=== PATIENT | male | born 1945 | race Caucasian/White ===

== ENCOUNTER → 2017-11-24 09:42 | Outpatient (REF) | payer MEDICARE, SELFPAY ==
[2017-11-24 09:51] LABS: Basophils % 0.4 % (0.1-2.0); Eosinophils # 0.1 K/mm3 (0.0-0.4); Eosinophils % 0.8 % (0.1-12.0); Hematocrit 49.3 % (42.0-52.0); Hemoglobin 16.1 g/dL (14.1-18.0); Lymphocytes # 2.1 K/mm3 (0.7-4.5); Lymphocytes % 18.2 K/mm3 (10-50); Mean Corpuscular HGB Conc 32.6 g/dL (31.8-35.4); Mean Corpuscular Hemoglobin 30.5 pg (27.0-31.2); Mean Corpuscular Volume 93.4 fl (80-94); Mean Platelet Volume 8.2 fl (7.4-10.4); Monocytes # 0.8 K/mm3 (0.1-1.0); Monocytes % 7.2 % (1.7-9.3); Neutrophils # 8.3 K/mm3 (1.8-7.8); Neutrophils % 73.4 % (37.0-80.0); Platelet Count 232 K/mm3 (142-424); Red Blood Count 5.28 M/mm3 (4.60-6.20); Red Cell Distribution Width 13.5 % (11.5-17.5); White Blood Count 11.2 K/mm3 (4.8-10.8)
[2017-11-24 10:05] LABS: Anion Gap 7.4 mEq/L (5-15); Blood Urea Nitrogen 15 mg/dL (7-18); Carbon Dioxide 33 mmol/L (21.0-32.0); Chloride 104 mmol/L (98-107); Creatinine,Serum 0.97 mg/dL (0.70-1.30); Estimated Glomerular Filt Rate 76 ml/min (>60); GFR (African American) 92 ML/MIN (>60); Glucose 161 mg/dL (74-106); Potassium 4.4 mmoL/L (3.5-5.1); Sodium 140 mmol/L (136-145)
[2017-11-24 10:17] LABS: Acetone, Serum (Rapid) None Detected (None Detect)
== END ==
LOC: LAB 09:42
PROVIDERS: Visit Provider Internal Medicine
DX: R10.9 Unspecified abdominal pain (principal); E87.2 Acidosis; E11.42 Type 2 diabetes mellitus with diabetic polyneuropathy; I10 Essential (primary) hypertension; E66.01 Morbid (severe) obesity due to excess calories
CPT/HCPCS: 80048; 82009; 85025

== ENCOUNTER 2019-05-05 18:36 | Observation (INO) ==
[2019-05-05 19:12] LABS: Basophils % 0.3 % (0.1-2.0); Eosinophils % 0.3 % (0.1-12.0); Hematocrit 49.9 % (42.0-52.0); Hemoglobin 16.1 g/dL (14.1-18.0); Lymphocytes % 16.4 % (10-50); Mean Corpuscular HGB Conc 32.2 g/dL (31.8-35.4); Mean Corpuscular Volume 92.9 fl (80-94); Mean Platelet Volume 7.5 fl (7.4-10.4); Monocytes % 8.3 % (1.7-9.3); Neutrophils # 8.9 K/mm3 (1.8-7.8); Neutrophils % 74.6 % (37.0-80.0); Platelet Count 229 K/mm3 (142-424); Red Blood Count 5.37 M/mm3 (4.60-6.20); Red Cell Distribution Width 13.9 % (11.5-17.5); White Blood Count 11.9 K/mm3 (4.8-10.8)
--- NOTE | 2019-05-05 19:38 | Emergency Department Note ---
ED Disposition Clinical Impression: Left lower quadrant abdominal pain Disposition: Still a Patient Condition on Discharge: Fair Instructions: DI for Acute Abdomen Referrals: Preet Morales [Primary Care Provider] - - Critical Care Critical Care Time: No Attestation: On 05/05/19, the high probability of a clinically significant, sudden or life threatening deterioration of the following system(s) required my full and direct attention, intervention and personal management. The time I documented below is in addition to time spent performing reported procedures but includes the following listed in this critical care notation. Medical Decision Making - Liban Inquiry Pt receiving controlled substance: Yes Liban was queried for this patient: No Reason not queried -: Emergent pt cond-no time Risks and benefits of using a controlled substance: were not discussed with pt by me Vital Signs: 05/05/19 18:42 05/05/19 19:06 Temperature 98.3 F Temperature Source Oral Pulse Rate [Left Radial] 57 L 88 Respiratory Rate 16 19 Blood Pressure [Right Arm] 112/69 118/86 Blood Pressure Mean [Right Arm] 83 96 Blood Pressure Source [Right Arm] Automatic Cuff Automatic Cuff Blood Pressure Position [Right Arm] Sitting Sitting 02 Sat by Pulse Oximetry 98 96 Oxygen Delivery Method Room Air Room Air - Lab Data Lab Results 05/05/19 18:10: Troponin I < 0.02, Lipase 90 05/05/19 18:50: WBC 11.9 H, RBC 5.37, Hgb 16.1, Hct 49.9, MCV 92.9, MCH 29.9, MCHC 32.2, RDW 13.9, Plt Count 229, MPV 7.5, Neut % (Auto) 74.6, Lymph % (Auto) 16.4, [place] % (Auto) 8.3, Eos % (Auto) 0.3, Baso % (Auto) 0.3, Neut # (Auto) 8.9 H, Lymph # (Auto) 2.0, [place] # (Auto) 1.0, Eos # (Auto) 0.0, Baso # (Auto) 0.0 05/05/19 18:50: Sodium 142, Potassium 4.1, Chloride 105, Carbon Dioxide 28, Anion Gap 13.1, BUN 22 H, Creatinine 1.06, Estimated Creat Clear 109, Estimated GFR 69, Est GFR ( Amer) 83, Glucose 120 H, Calcium 9.9, Total Bilirubin 0 .6, AST 12 L, ALT 20, Alkaline Phosphatase 72, Total Protein 7.7, Albumin 3.8, Globulin 3.9 H, Albumin/Globulin Ratio 1.0 L Result diagrams: 05/05/19 18:50 05/05/19 18:50 Orders (Tests/Meds): ED MEDICATIONS Discontinued Medications Generic Name Dose Route Start Last Admin Trade Name Ezra PRN Reason Stop Dose Admin Iohexol 75 ml 05/05/19 19:59 05/05/19 20:01 Rad-Omnipaque 350 100ml Bottle IV 05/05/19 20:00 75 ml ONCE ONE Administration Morphine Sulfate 4 mg 05/05/19 19:59 Morphine 4mg/Ml Syringe IV 05/05/19 20:00 ONCE ONE Ondansetron HCl 4 mg 05/05/19 19:59 Zofran 4mg/2ml Vial IV 05/05/19 20:00 ONCE ONE Sodium Chloride 10 ml 05/05/19 19:59 05/05/19 20:01 Rad-Saline Flush 10ml Syringe IV 05/05/19 20:00 10 ml ONCE ONE Administration ORDERS Category Date Time Status CT abdomen pelvis w con Stat Cat Scan 05/05/19 18:48 Taken Diarrhea 23 Panel, PCR Stat Lab 05/05/19 18:47 Ordered Urinalysis and Microscopic Stat Lab 05/05/19 18:47 Ordered - ECG Data Tracing #1 EKG interpreted by Wilber Khan MD: Rhythm: sinus Rate: 76 [place]: normal Ectopy: none Conduction: normal ST Segment Changes: none T Wave Changes: none Q Waves: none No evidence of acute ischemia or injury Baseline wander present, but I consider the EKG adequate for accurate interpretation. Medical Decision Narrative: 8:00 PM: At shift change, I have discussed the patient with Dr. Yusuf, who will assume care of the patient at this time. I have discussed all clinical information including history, physical and diagnostic study results. Preliminary diagnoses based on information available at this point have been recorded by me. Controlled substance administration and critical care statement are also preliminary, as of the time of handoff. General Adult HPI - General Chief complaint: Abdominal Pain Stated complaint: abdominal pain Time Seen by Provider: 05/05/19 19:37 Mode of Arrival: Ambulatory Limitations: No Limitations Description of Symptoms (Recalled from ER Triage Doc. by RN): to ed per pvt car with c/o llq abd pain woke him up at 3am. states he had approx 5-6 episodes of diarrhea but has not had any since 12pm today. states he went and played golf but pain is progressively getting worse. denies fever, vomiting. cpta none - History of Present Illness HPI narrative: States left lower quadrant pain since about 330 or 4 AM today. 4 or 5 episodes of diarrhea without blood. No vomiting. No fever. Has prior history of diverticulitis. Feels similar to previous episodes. Has never had to have surgery for diverticulitis. - Related Data Home Medications Medication Instructions Recorded Confirmed Canagliflozin [Invokana] 300 mg PO DAILY 02/21/18 02/21/18 Gabapentin [Gabapentin 300mg Cap] 300 mg PO BID 02/21/18 02/21/18 Glimepiride 4 mg PO DAILY 02/21/18 02/21/18 Lisinopril/Hydrochlorothiazide 1 tab PO DAILY 02/21/18 02/21/18 [Lisinopril-Hctz 20-12.5 mg Tab] Metformin HCl 500 mg PO BID 02/21/18 02/21/18 Metoprolol Tartrate 50 mg PO BID 02/21/18 02/21/18 Pravastatin Sodium [Pravachol 40mg 40 mg PO HS 02/21/18 02/21/18 Tablet] Previous Rx's Medication Instructions Recorded levoFLOXacin [Levaquin 500mg 500 mg PO DAILY #7 tab 02/21/18 tab] metroNIDAZOLE [Flagyl] 500 mg PO TID #30 tab 02/21/18 Allergies Allergy/AdvReac Type Severity Reaction Status Date / Time No Known Allergies Allergy Verified 11/09/18 14:08 [facility] History - Hepatitis A Screen Drug use history?: No High risk sexual behaviors?: No History of sexually transmitted infection?: No Currently employed?: No Childcare worker?: No Do you have indoor plumbing?: Yes Do you have electricity?: Yes Attestation statement:: This patient has been screened for Hepatitis A risk factors. I have reviewed the patient's past medical history: Yes Medical History: Reports:: Diabetes Mellitus Type 1 Denies:: Cancer, Diabetes Mellitus Type 2, MRSA Amputation: No Fractures: No - Social History Smoking Status: Current every day smoker Tobacco Type: cigars # Packs/Day (cigarettes): 0 Alcohol Intake: never Alcohol Intake Frequency:: holidays/special occasions only Occupational Status: retired ROS Obtained: Yes All systems reviewed & no additional complaints - Constitutional Constitutional: Denies fever(s) - Cardiovascular Cardiovascular: Denies chest pain - Respiratory Respiratory: No dyspnea - Gastrointestinal Gastrointestingal: Reports: abdominal pain, diarrhea. Denies: nausea, vomiting - Genitourinary Male Genitourinary: Denies difficulty urinating Physical Exam - General General appearance: alert, in no apparent distress - Head Head exam: atraumatic, normocephalic - Eye Eye exam: Present: normal appearance, EOMI - ENT ENT exam: Present: mucous membranes moist - Neck Neck exam: Present: normal inspection, trachea midline - Chest Chest inspection: Present: normal inspection, symmetric chest wall rise - Respiratory Respiratory exam: Present: normal lung sounds bilaterally. Absent: respiratory distress - Cardiovascular Cardiovascular exam: Present: regular rate, normal rhythm, normal heart sounds - Abdominal Exam Abdominal exam: Present: soft, tenderness, guarding, normal bowel sounds. Absent: distention, rebound, rigidity Abdominal tenderness: Present: LLQ - Extremities Exam Extremities exam: Present: normal inspection - Neurological Exam Neurological exam: Present: alert, oriented X3 - Psychiatric Psychiatric exam: Present: normal affect, normal mood - Skin Skin exam: Present: warm, dry
[2019-05-05 19:39] LABS: Albumin Level 3.8 gm/dL (3.4-5.0); Anion Gap 13.1 mEq/L (5-15); Bilirubin,Total 0.6 mg/dL (0.2-1.0); Calcium 9.9 mg/dL (8.5-10.1); Globulin 3.9 gm/dl (1.3-3.2); Total Protein,Serum 7.7 gm/dL (6.4-8.2)
[2019-05-05 20:29] LABS: Microscopic, Urine URINE MICROSCOPIC (MICROSCOPIC)
[2019-05-05 20:30] LABS: Appearance,Urine CLEAR (Clear); Bilirubin,Urine Negative (Negative); Blood, Urine Negative (Negative); Color,Urine YELLOW (Yellow); Glucose,Urine (UA) 3+ (Negative); Ketones,Urine Negative (Negative); Leukocyte Esterase,Urine Negative (Negative); PH,Urine 5.5 (5.0-8.5); Protein,Urine Negative (Negative); Urobilinogen,Urine 0.2 EU/dl (0.2)
[2019-05-05 20:32] LABS: Amorphous Sediment,Urine Trace /lpf
[2019-05-06 07:06] LABS: Anion Gap 10.1 mEq/L (5-15)
[2019-05-06 07:16] LABS: Hemoglobin 14.9 g/dL (14.1-18.0); Red Blood Count 4.89 M/mm3 (4.60-6.20); White Blood Count 9.4 K/mm3 (4.8-10.8)
[2019-05-06 07:17] LABS: Basophils % 0.4 % (0.1-2.0); Eosinophils # 0.1 K/mm3 (0.0-0.4); Eosinophils % 0.6 % (0.1-12.0); Hematocrit 46.2 % (42.0-52.0); Lymphocytes # 1.9 K/mm3 (0.7-4.5); Lymphocytes % 22.7 % (10-50); Mean Corpuscular HGB Conc 32.2 g/dL (31.8-35.4); Mean Corpuscular Volume 94.4 fl (80-94); Mean Platelet Volume 7.5 fl (7.4-10.4); Monocytes # 1.1 K/mm3 (0.1-1.0); Monocytes % 11.5 % (1.7-9.3); Neutrophils # 6.1 K/mm3 (1.8-7.8); Neutrophils % 64.8 % (37.0-80.0); Platelet Count 193 K/mm3 (142-424)
[2019-05-06 07:22] LABS: Calcium 8.9 mg/dL (8.5-10.1)
--- NOTE | 2019-05-06 08:22 | H&P/Discharge Summary ---
General - General Admission date:: 05/05/19 Discharge date: 05/06/19 *Admission Date: 05/05/19 *Chief complaint: Diverticulitis *History of present illness: 73-year-old white male, patient of Dr. Morales, who has a history of frequent diverticulitis exacerbations, who noticed that he was somewhat constipated yesterday morning with some abdominal pain. He took a vigorous walk, ate some breakfast and then went to play golf, and noticed that he had some frequent bowel movements but no pain. Last night he had some worsening pain and came to the emergency department where he was noted to have diverticulitis on CT scan. He was unable to keep fluids down in the ER and was admitted overnight. Please see ER notes for details. [facility] History I have reviewed the patient's past medical history: Yes Medical History: Reports:: Diabetes Mellitus Type 2, Hypertension Denies:: Cancer, Diabetes Mellitus Type 1, MRSA *Have you ever received a pneumonia vaccine?: No *Have you received a flu vaccine this season?: No Laterality Cases: Left: Other, Right: Arthroscopy Knee Other Surgeries: Yes: Appendectomy, Colonoscopy Amputation: No Fractures: No - *Social History Educational Level: Completed High School Smoking Status: Current some day smoker Tobacco Type: cigars # Packs/Day (cigarettes): 0 Alcohol Intake: current Alcohol Intake Frequency:: a few times a week *Occupational Status:: retired Housing: house Household Members: none *Travel in the last 8 weeks: None - Psychiatric History Expresses thoughts of harming self/others: None Suicide Plan Description: No Plan Family Hx:: Adopted Review of Systems - Review of Systems Review of systems:: pertinent systems reviewed and negative unless documented below This morning patient has no abdominal pain. 10 point review of systems is entirely negative. Exam Vital signs and Labs for Last 24 Hours: Temp Pulse Resp BP Pulse Ox 97.8 F 61 18 108/57 L 95 05/06/19 04:00 05/06/19 04:00 05/06/19 04:00 05/06/19 04:00 05/06/19 04:00 Laboratory Results - last 24 hr 05/05/19 18:10: Troponin I < 0.02, Lipase 90 05/05/19 18:50: WBC 11.9 H, RBC 5.37, Hgb 16.1, Hct 49.9, MCV 92.9, MCH 29.9, MCHC 32.2, RDW 13.9, Plt Count 229, MPV 7.5, Neut % (Auto) 74.6, Lymph % (Auto) 16.4, [place] % (Auto) 8.3, Eos % (Auto) 0.3, Baso % (Auto) 0.3, Neut # (Auto) 8.9 H, Lymph # (Auto) 2.0, [place] # (Auto) 1.0, Eos # (Auto) 0.0, Baso # (Auto) 0.0 05/05/19 18:50: Sodium 142, Potassium 4.1, Chloride 105, Carbon Dioxide 28, Anion Gap 13.1, BUN 22 H, Creatinine 1.06, Estimated Creat Clear 109, Estimated GFR 69, Est GFR ( Amer) 83, Glucose 120 H, Calcium 9.9, Total Bilirubin 0.6, AST 12 L, ALT 20, Alkaline Phosphatase 72, Total Protein 7.7, Albumin 3.8, Globulin 3.9 H, Albumin/Globulin Ratio 1.0 L 05/05/19 20:25: Urine Color Yellow, Urine Appearance Clear, Urine pH 5.5, Ur Specific [place] 1.010, Urine Protein Negative, Urine Glucose (UA) 3+, Urine Ketones Negative, Urine Blood Negative, Urine Nitrate Negative, Urine Bilirubin Negative, Urine Urobilinogen 0.2, Ur Leukocyte Esterase Negative, Amorphous Sediment Trace 05/06/19 05:55: WBC 9.4, RBC 4.89, Hgb 14.9, Hct 46.2, MCV 94.4 H, MCH 30.4, MCHC 32.2, RDW 14.0, Plt Count 193, MPV 7.5, Neut % (Auto) 64.8, Lymph % (Auto) 22.7, [place] % (Auto) 11.5 H, Eos % (Auto) 0.6, Baso % (Auto) 0.4, Neut # (Auto) 6.1, Lymph # (Auto) 1.9, [place] # (Auto) 1.1 H, Eos # (Auto) 0.1, Baso # (Auto) 0.0 05/06/19 05:55: Sodium 142, Potassium 4.1, Chloride 106, Carbon Dioxide 30, Anion Gap 10.1, BUN 19 H, Creatinine 0.88, Estimated Creat Clear 115, Estimated GFR 85, Est GFR ( Amer) 103 D, Glucose 99, Calcium 8.9 D 05/06/19 06:27: POC Glucose 101 I & O for Last 24 hours: Intake & Output 05/03/19 05/04/19 05/05/19 05/06/19 11:59 11:59 11:59 11:59 Intake Total 814 / 814 Output Total 900 / 900 Balance -86 / -86 Weight 269 lb 8 oz Narrative: Alert, oriented. Able to get up and move around the room. No complaints of pain. No scleral icterus, no jaundice. Lungs are clear bilaterally. Heart rate regular. Abdomen soft, nontender, no protuberance. No distal edema, clubbing. No perfusion deficits. No neurologic deficit. Hospital Course Hospital Course: Patient was admitted overnight with IV antibiotics. Tolerated this well. This morning we will give him a low residue breakfast. If this is tolerated well he will be discharged home with p.o. antibiotics, I will make appointments for GI follow-up to review his colonoscopy history as well as with Dr. Morales, his primary physician. Results Labs on day of discharge: Labs from last 24 hours 05/06/19 05/06/19 05/06/19 06:27 05:55 05:55 WBC 9.4 RBC 4.89 Hgb 14.9 Hct 46.2 MCV 94.4 H MCH 30.4 MCHC 32.2 RDW 14.0 Plt Count 193 MPV 7.5 Neut % (Auto) 64.8 Lymph % (Auto) 22.7 [place] % (Auto) 11.5 H Eos % (Auto) 0.6 Baso % (Auto) 0.4 Neut # (Auto) 6.1 Lymph # (Auto) 1.9 [place] # (Auto) 1.1 H Eos # (Auto) 0.1 Baso # (Auto) 0.0 Sodium 142 Potassium 4.1 Chloride 106 Carbon Dioxide 30 Anion Gap 10.1 BUN 19 H Creatinine 0.88 Estimated Creat Clear 115 Estimated GFR 85 Est GFR ( Amer) 103 D Glucose 99 POC Glucose 101 Calcium 8.9 D Total Bilirubin AST ALT Alkaline Phosphatase Troponin I Total Protein Albumin Globulin Albumin/Globulin Ratio Lipase Urine Color Urine Appearance Urine pH Ur Specific [place] Urine Protein Urine Glucose (UA) Urine Ketones Urine Blood Urine Nitrate Urine Bilirubin Urine Urobilinogen Ur Leukocyte Esterase Amorphous Sediment 05/05/19 05/05/19 05/05/19 20:25 18:50 18:50 WBC 11.9 H RBC 5.37 Hgb 16.1 Hct 49.9 MCV 92.9 MCH 29.9 MCHC 32.2 RDW 13.9 Plt Count 229 MPV 7.5 Neut % (Auto) 74.6 Lymph % (Auto) 16.4 [place] % (Auto) 8.3 Eos % (Auto) 0.3 Baso % (Auto) 0.3 Neut # (Auto) 8.9 H Lymph # (Auto) 2.0 [place] # (Auto) 1.0 Eos # (Auto) 0.0 Baso # (Auto) 0.0 Sodium 142 Potassium 4.1 Chloride 105 Carbon Dioxide 28 Anion Gap 13.1 BUN 22 H Creatinine 1.06 Estimated Creat Clear 109 Estimated GFR 69 Est GFR ( Amer) 83 Glucose 120 H POC Glucose Calcium 9.9 Total Bilirubin 0.6 AST 12 L ALT 20 Alkaline Phosphatase 72 Troponin I Total Protein 7.7 Albumin 3.8 Globulin 3.9 H Albumin/Globulin Ratio 1.0 L Lipase Urine Color Yellow Urine Appearance Clear Urine pH 5.5 Ur Specific [place] 1.010 Urine Protein Negative Urine Glucose (UA) 3+ Urine Ketones Negative Urine Blood Negative Urine Nitrate Negative Urine Bilirubin Negative Urine Urobilinogen 0.2 Ur Leukocyte Esterase Negative Amorphous Sediment Trace 05/05/19 18:10 WBC RBC Hgb Hct MCV MCH MCHC RDW Plt Count MPV Neut % (Auto) Lymph % (Auto) [place] % (Auto) Eos % (Auto) Baso % (Auto) Neut # (Auto) Lymph # (Auto) [place] # (Auto) Eos # (Auto) Baso # (Auto) Sodium Potassium Chloride Carbon Dioxide Anion Gap BUN Creatinine Estimated Creat Clear Estimated GFR Est GFR ( Amer) Glucose POC Glucose Calcium Total Bilirubin AST ALT Alkaline Phosphatase Troponin I < 0.02 Total Protein Albumin Globulin Albumin/Globulin Ratio Lipase 90 Urine Color Urine Appearance Urine pH Ur Specific [place] Urine Protein Urine Glucose (UA) Urine Ketones Urine Blood Urine Nitrate Urine Bilirubin Urine Urobilinogen Ur Leukocyte Esterase Amorphous Sediment DS: Diagnosis - Discharge Diagnosis (1) Diverticulitis Status: Acute Discharge Plan - Patient Discharge Instructions ACTIVITY: Continue current activity DIET: continue same diet Patient Instructions: Diverticulitis, DI for Diverticulitis - Follow up Plan Follow up with: Yessy Mireles APRN [Nurse Practitioner] - 1 week Preet Morales [Primary Care Provider] - 05/10/19 Disposition: Home, Self-Intermediate Medications: Home Medications Medication Instructions Recorded Confirmed Type Canagliflozin [Invokana] 300 mg PO DAILY 02/21/18 02/21/18 History Gabapentin [Gabapentin 300mg Cap] 300 mg PO BID 02/21/18 02/21/18 History Glimepiride 4 mg PO DAILY 02/21/18 02/21/18 History Lisinopril/Hydrochlorothiazide 1 tab PO DAILY 02/21/18 02/21/18 History [Lisinopril-Hctz 20-12.5 mg Tab] Metoprolol Tartrate 50 mg PO BID 02/21/18 02/21/18 History Pravastatin Sodium [Pravachol 40mg 40 mg PO HS 02/21/18 02/21/18 History Tablet] levoFLOXacin [Levaquin 500mg 500 mg PO DAILY #7 tab 02/21/18 Rx tab] metroNIDAZOLE [Flagyl] 500 mg PO TID #30 tab 02/21/18 Rx Aspirin [Aspir-Low] 81 mg PO DAILY 05/06/19 05/06/19 History Metformin HCl 1,000 mg PO BID 05/06/19 05/06/19 History levoFLOXacin [Levaquin 500mg 500 mg PO DAILY #7 tab 05/06/19 Rx tab] Prescriptions/Medication Reconciliation: New levoFLOXacin [Levaquin 500mg tab] 500 mg PO DAILY #7 tab Continued Pravastatin Sodium [Pravachol 40mg Tablet] 40 mg PO HS Metoprolol Tartrate 50 mg PO BID Lisinopril/Hydrochlorothiazide [Lisinopril-Hctz 20-12.5 mg Tab] 1 tab PO DAILY Glimepiride 4 mg PO DAILY Gabapentin [Gabapentin 300mg Cap] 300 mg PO BID Canagliflozin [Invokana] 300 mg PO DAILY levoFLOXacin [Levaquin 500mg tab] 500 mg PO DAILY #7 tab metroNIDAZOLE [Flagyl] 500 mg PO TID #30 tab Metformin HCl 1,000 mg PO BID Aspirin [Aspir-Low] 81 mg PO DAILY - Problem Reconciliation Problems Reviewed?: Yes
--- NOTE | 2019-05-06 17:38 | Electrocardiograph Report ---
APPROVED REPORT Exam: Resting ECG HR:76 bpm ECG Measurements Heart Rate 76 AXES [place] 174 P 46 QRSd 76 QRS 11 QT 376 T-7 QTc 423 <Conclusion> Normal sinus rhythm Nonspecific ST abnormality Abnormal ECG Electronically signed by : Beau Saleh, 05/06/2019 17:37:41
== END 2019-05-06 09:04 | disposition home or self-care (01) | DRG 392 ==
LOC: ER 18:36 → 2ND 21:13 → INTOOBSV 22:06 → 2ND 22:07
PROVIDERS: ADMIT Internal Medicine Adolescent Medicine; ATTEND Internal Medicine Adolescent Medicine
CPT/HCPCS: 36415; 74177; 80048; 80053; 81001; 82962; 83690; 84484; 85025; 93005; 96365; 96367; 96375; 99284; G0378; J1956; J2405; Q9967

== ENCOUNTER → 2019-05-13 11:05 | Outpatient (POV) | payer MEDICARE, SELFPAY | PROVIDERS: PCP Internal Medicine Adolescent Medicine; Visit Provider Nurse Practitioner Family | DX: Z00.00 Encounter for general adult medical examination without abnormal findings (principal) ==

== ENCOUNTER → 2020-04-03 14:44 | Outpatient (CLI) | payer MEDICARE, SELFPAY ==
--- NOTE | 2020-04-03 14:55 | XR_ITS ---
PROCEDURE: XR RIBS RT MIN 3V W CXR1V CLINICAL INDICATION: R LATERAL CHEST PAIN COMPARISON: CXR CHEST(2 VIEWS-NOT PORTABLE) from 10/14/2013 CXR CHEST(2 VIEWS-NOT PORTABLE) from 02/04/2016 CXR CHEST(2 VIEWS-NOT PORTABLE) from 08/18/2017 FINDINGS: Frontal view of the chest shows no acute finding. Multiple views of the right ribs obtained showing no obvious displaced fracture. There is a longitudinal lucency through the anterior lateral aspect of the right 6th rib Other findings:None. IMPRESSION: Possible nondisplaced fracture right 6th rib Dictated by: Jerome Damon MD 04/03/2020 16:11 Electronically signed by Jerome Damon MD in [place] 04/03/2020 16:11
== END ==
PROVIDERS: PCP Internal Medicine; Visit Provider Internal Medicine
DX: R07.89 Other chest pain (principal)
CPT/HCPCS: 71101

== ENCOUNTER 2020-08-13 14:58 | Emergency (ER) | payer MEDICARE, SELFPAY ==
[2020-08-13 14:59] VITALS: BP 144/83; PULSE 68; RESP 18; TEMP 37; O2SAT 99; BMI 37.6
--- NOTE | 2020-08-13 15:15 | [facility].EDGENADL ---
ED Disposition Clinical Impression: Low back pain Qualifiers: Chronicity: acute Back pain laterality: left Sciatica presence: without sciatica Qualified Code(s): M54.5 - Low back pain Disposition: Home, Self-Care Condition on Discharge: Good Instructions: DI for Low Back Pain Additional Instructions: [place] as needed for pain. Do not take Tylenol 3 while taking [place]. Additional instructions for BACK PAIN: See your physician as soon as possible for further evaluation. Return immediately if back pain becomes intolerable, or if fever, numbness or weakness of your legs, loss of control of your bowels or bladder. Additional instructions for CONTROLLED SUBSTANCES: You have been prescribed a medication that is a controlled substance. Controlled substances include pain medications known as opiates and sedative nerve medications known as benzodiazepines. Tramadol, fioricet, and gabapentin are also controlled substances. Some common opiates include: Codeine (such as Tylenol #3) Hydrocodone (Vicodin, Lortab, Lorcet, [place]el[place]) Oxycodone (Percocet, Percodan, Oxycodone, Oxy IR) Some common benzodiazepines include: Diazepam (Valium) Lorazepam (Ativan) Alprazolam (Xanax) Clonazepam (Klonopin) Oxazepam (Serax) All of these controlled substances are highly addictive and frequently abused. Misuse can and frequently does lead to addiction as well as overdose and . Medication should be stored in a locked cabinet or other secure storage unit. Do not store the medication in a motor vehicle. Short term supplies, 3 days or less, are prescribed because of the highly addictive nature of the medication. Any of the controlled substance medication NOT taken should be disposed of properly and NOT SAVED. The recommended method of disposing of unused medications is: Place the medicines in a sealable plastic bag. If the medicine is a solid, crush it or add water to dissolve it. Add something undesirable (cat litter, coffee grounds, etc.) Dispose of sealed bag in household trash Do not flush or pour unused medicines down a sink or drain. Controlled substances should not be shared, given away or sold. Because of the addictive nature and frequent abuse, these medications are sometimes stolen. These medications should be kept in a safe place where they cannot be stolen. Do not keep them in your car or purse. Lost or stolen prescriptions for controlled substances WILL NOT BE REFILLED in this emergency department, regardless of whether a police report was filed. Prescriptions: Hydrocod/Acet 5/325 mg [[place] 5/325mg tablet] 1 tab PO Q6HP PRN #8 tab PRN Reason: Pain Prescription Printed Referrals: Preet Morales [Primary Care Provider] - - Critical Care Critical Care Time: No Attestation: On 08/13/20, the high probability of a clinically significant, sudden or life threatening deterioration of the following system(s) required my full and direct attention, intervention and personal management. The time I documented below is in addition to time spent performing reported procedures but includes the following listed in this critical care notation. Medical Decision Making - Medical Records Medical records reviewed: Yes: I reviewed the patient's medical records. MR Comment: Reviewed CT scans of abdomen and pelvis on 05/05/2019 and 02/21/2018. The patient has a horseshoe kidney, no ureteral or renal calculi on those scans, no aortic aneurysm. I saw the patient in 2015 for back pain and gave him an injection of Toradol and a prescription for [place]el[place]. - Liban Inquiry Pt receiving controlled substance: Yes Liban was queried for this patient: Yes Reference #:: [id number] Risks and benefits of using a controlled substance: were discussed with pt by me Comment: 16 rxs. most recent rx Tyl #3 on 08/07. Vital Signs: 08/13/20 14:59 08/13/20 17:03 Temperature 98.6 F 98 F Temperature Source Oral Oral Pulse Rate 78 Pulse Rate [Radi
[2020-08-13 15:20] LABS: Microscopic, Urine URINE MICROSCOPIC (MICROSCOPIC)
[2020-08-13 15:22] LABS: Appearance,Urine CLEAR (Clear); Bilirubin,Urine Negative (Negative); Blood, Urine Negative (Negative); Color,Urine YELLOW (Yellow); Glucose,Urine (UA) 3+ (Negative); Ketones,Urine Negative (Negative); Leukocyte Esterase,Urine Negative (Negative); Nitrate,Urine Negative (Negative); Protein,Urine Negative (Negative); Specific Gravity, Urine 1.025 (1.005-1.030); Urobilinogen,Urine 0.2 EU/dl (0.2)
[2020-08-13 15:29] LABS: RBC,Urine Occasional #/hpf (0-3)
--- NOTE | 2020-08-13 15:29 | XR_ITS ---
PROCEDURE: XR LUMBAR SPINE 2-3V CLINICAL INDICATION: back pain COMPARISON: CR LS5 LUMBAR SPINE 5 VIEWS from 10/14/2013 FINDINGS: Normal alignment. No acute fracture or dislocation evident. Prominent anterior osteophytes are present in the lower thoracic spine consistent DISH. Osteophytes are also present in the lumbar spine with mild multilevel degenerative disc disease. Other findings:None. IMPRESSION: Degenerative changes, no acute finding Dictated by: Jerome Damon MD 08/13/2020 18:57 Jerome Damon MD in [place] 08/13/2020 18:57
--- NOTE | 2020-08-13 15:30 | PC.NURSE ---
notified rad of orders on pt, spoke with Charles. States tech is with another pt at the moment but will be down to get when finished.
[2020-08-13 17:03] VITALS: BP 152/78; PULSE 78; RESP 18; TEMP 36.6; O2SAT 98
== END 2020-08-13 17:07 | disposition home or self-care (01) ==
PROVIDERS: Emergency Provider Emergency Medicine; PCP Internal Medicine
DX: M54.5 Low back pain (principal); R10.32 Left lower quadrant pain; E11.9 Type 2 diabetes mellitus without complications; I10 Essential (primary) hypertension; E78.5 Hyperlipidemia, unspecified; Z79.899 Other long term (current) drug therapy
CPT/HCPCS: 72100; 81001; 96372; 99282

== ENCOUNTER → 2020-08-26 15:12 | Outpatient (CLI) | payer MEDICARE, SELFPAY ==
--- NOTE | 2020-08-26 15:16 | MR_ITS ---
PROCEDURE: MR KNEE LT WO CON CLINICAL INDICATION: LEFT MEDIAL KNEE PAIN Pt c/o medial left knee pain x 4 months. Pt states 4 months ago he felt a pop and pain is worse at night when laying down. COMPARISON: No exams were available for comparison TECHNIQUE: Routine multiplanar multi echo sequences are performed without gadolinium enhancement. FINDINGS: The cruciate ligaments appear intact. The collateral ligaments, patellar tendon, and quadriceps tendon appear intact. There is a complex tear involving the posterior horn of the medial meniscus. The main component is horizontal however, there does appear to be a small longitudinal component posteriorly. A complex tear involves the body the medial meniscus. The medial meniscus is somewhat extruded medially. No evidence of lateral meniscus tear. There is mild thinning of the patellar cartilage. There is a small knee joint effusion. The patellofemoral ligaments appear intact. A Santiago's cyst is present measuring 5 cm cephalad caudad. There are osteoarthritic changes involving all 3 compartments. A sub articular cyst is present involving the interspinous region of the proximal tibia posteriorly. There is some slight increased sub cortical T2 signal in the lateral femoral condyle anteriorly. IMPRESSION: 1. Complex tear of the posterior horn and body of the medial meniscus 2. 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 Dictated by: Jerome Damon MD 08/27/2020 18:33 Jerome Damon MD in [facility] 08/27/2020 18:33
== END ==
PROVIDERS: PCP Internal Medicine; Visit Provider Internal Medicine
DX: M25.562 Pain in left knee (principal)
CPT/HCPCS: 73721

== ENCOUNTER 2021-01-10 07:04 | Emergency (ER) | payer MEDICARE, SELFPAY ==
[2021-01-10 07:06] VITALS: BP 166/64; PULSE 60; RESP 16; TEMP 36.3; O2SAT 98; BMI 38.7
--- NOTE | 2021-01-10 07:57 | CT_ITS ---
PROCEDURE: CT LUMBAR SPINE WO CON CLINICAL HISTORY: BACK PAIN COMPARISON: CR XR LUMBAR SPINE 2-3V from 08/13/2020 TECHNIQUE: Axial images obtained with sagittal and coronal reformats. All CT scans at the facility use one or more dose reduction, viz: automated exposure control, ma/kV adjustment per patient size (including targeted exams where dose is matched to indication, i.e. head), or iterative reconstruction technique. FINDINGS: There is normal alignment. No acute fracture or dislocation is evident. There is multilevel lumbar spondylosis. T11-T12: Small endplate osteophytes. T12-L1: Unremarkable. L1-L2: Severe right-sided foraminal narrowing from facet and ligamentum calcification with moderate right lateral recess narrowing. L2-L3: Degenerative disc disease with concentric bulging disc with facet and ligamentum hypertrophy with severe canal stenosis of 7 mm with severe bilateral lateral recess narrowing and moderate bilateral foraminal narrowing. Anterior osteophytes are present at this level as well. There is some ossification of the ligamentum flavum. L3-L4: 2-3 mm retrolisthesis of L3 with bulging disc along with facet and ligamentum hypertrophy with moderate left and mild right foraminal narrowing. L4-5: Bulging disc with facet hypertrophic change with moderate bilateral foraminal narrowing L5-S1: Bulging disc with moderate to severe facet hypertrophic changes. There is spurring along the inferior facet of L5 causing severe bilateral foraminal narrowing right greater than left. There is fusion of the SI joints the. 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 There is a 2 cm isodense nodule along the medial aspect of the left moiety suggesting a renal cyst. IMPRESSION: Multilevel lumbar spondylosis as detailed above with degenerative disc disease, bulging disc, and facet and ligamentum hypertrophy resulting in lateral recess and foraminal narrowing and canal stenosis. Please see above for detailed description at each level. No acute fracture or dislocation Dictated by: Jerome Damon MD 01/10/2021 08:53 Jerome Damon MD in [place] 01/10/2021 08:53
--- NOTE | 2021-01-10 07:58 | HMH.EDBACK ---
ED Disposition Clinical Impression: Lumbar radiculopathy, Lumbar facet joint pain, Foraminal stenosis of lumbar region Lumbar spinal stenosis Qualifiers: Neurogenic claudication status: with neurogenic claudication Qualified Code(s): M48.062 - Spinal stenosis, lumbar region with neurogenic claudication Disposition: Home, Self-Care Condition on Discharge: Good Instructions: DI for Back Pain With Sciatica Additional Instructions: call pcp in am Referrals: Preet Morales [Primary Care Provider] - - Critical Care Critical Care Time: No Attestation: On 01/10/21, the high probability of a clinically significant, sudden or life threatening deterioration of the following system(s) required my full and direct attention, intervention and personal management. The time I documented below is in addition to time spent performing reported procedures but includes the following listed in this critical care notation. Medical Decision Making - Medical Records Medical records reviewed: Yes: I reviewed the patient's medical records. - Liban Inquiry Pt receiving controlled substance: No Vital Signs: 01/10/21 07:06 01/10/21 08:41 01/10/21 08:43 Temperature 97.4 F L Temperature Source Oral Pulse Rate 54 L 53 L Pulse Rate [Radial] 60 Respiratory Rate 16 16 Blood Pressure 161/81 H 161/81 H Blood Pressure [Right Arm] 166/64 H Blood Pressure Mean 107 Blood Pressure Mean [Right Arm] 98 Blood Pressure Position Sitting Blood Pressure Position [Right Arm] Sitting 02 Sat by Pulse Oximetry 98 99 98 Oxygen Delivery Method Room Air Room Air - Lab Data Lab results reviewed: Yes: I reviewed the patient's lab results. Lab Results 01/10/21 08:02: POC Glucose 134 H Orders (Tests/Meds): ED MEDICATIONS Discontinued Medications Generic Name Dose Route Start Last Admin Trade Name Freq PRN Reason Stop Dose Admin Ketorolac Tromethamine 30 mg 01/10/21 07:26 01/10/21 07:33 Ketorolac 30mg/Ml Vial IM 01/10/21 07:27 30 mg ONCE ONE Administration - CT Data CT Scan: L-Spine Time Received: 09:[address] Reviewed: Yes: I have viewed the radiologist's interpretation Preliminary Findings: Abnormal (see report ) Medical Decision Narrative: sig changes on ct with spinal stenosis and facet and foraminal dis - will need to discuss with pcp to consider consults and more testing and treatment Back Pain HPI - General Chief Complaint: Back Pain/Injury Stated Complaint: Spasms in back & hips Time Seen by Provider: 01/10/21 07:30 Mode of Arrival: Ambulatory Source of Information: Patient, Medical Record Limitations: No Limitations Description of Symptoms (Recalled from ER Triage Doc. by RN): TO ED PER [facility]T CAR WITH C/O RT SIDE LOWER BACK PAIN RADIATING BUTTOCKS PT STATES SEEN BY PCP MONDAY WITH SAME SYMPTOMS GIVEN IM INJECTION AND SCRIPT FOR STEROIDS. PT STATES SYMPTOMS IMPROVED BUT PROGRESSIVELY STARTED GETTING WORSE - History of Present Illness HPI Narrative: rt back pain with rad to rt lower ext - worse this am - has been treated by pcp last week with steroids - no fever or rash MD Complaint: back pain Onset (ago): day(s) Duration: constant Similar Symptoms Previously: Yes Location: lumbar spine Severity: moderate Quality: sharp Exacerbating factors: movement Associated symptoms: denies other symptoms - Related Data Home Medications Medication Instructions Recorded Confirmed Canagliflozin [Invokana] 300 mg PO DAILY 02/21/18 01/10/21 Gabapentin [Gabapentin 300mg Cap] 300 mg PO BID 02/21/18 01/10/21 Glimepiride 4 mg PO DAILY 02/21/18 01/10/21 Lisinopril/Hydrochlorothiazide 1 tab PO DAILY 02/21/18 01/10/21 [Lisinopril-Hctz 20-12.5 mg Tab*] Metoprolol Tartrate 50 mg PO BID 02/21/18 01/10/21 Pravastatin Sodium [Pravachol 40mg 40 mg PO HS 02/21/18 01/10/21 Tablet] Aspirin [Aspir-Low] 81 mg PO DAILY 05/06/19 01/10/21 Metformin HCl 1,000 mg PO BID 05/06/19 01/10/21 Allergies
[2021-01-10 08:09] LABS: POC Glucose,Bedside 134 (70-110)
[2021-01-10 08:41] VITALS: BP 161/81; PULSE 54; O2SAT 99
[2021-01-10 08:43] VITALS: BP 161/81; PULSE 53; RESP 16; O2SAT 98
--- NOTE | 2021-01-10 08:45 | PC.NURSE ---
PT UPDATED ON PLAN OF CARE
[2021-01-10 09:19] VITALS: BP 162/74; PULSE 65; RESP 16; TEMP 36.6; O2SAT 98
== END 2021-01-10 09:21 | disposition home or self-care (01) ==
PROVIDERS: Emergency Provider Emergency Medicine; PCP Internal Medicine
DX: M54.16 Radiculopathy, lumbar region (principal); M48.062 Spinal stenosis, lumbar region with neurogenic claudication; E11.9 Type 2 diabetes mellitus without complications; I10 Essential (primary) hypertension; E78.5 Hyperlipidemia, unspecified; F17.290 Nicotine dependence, other tobacco product, uncomplicated
CPT/HCPCS: 72131; 82962; 96372; 99282

== ENCOUNTER → 2021-01-21 08:28 | Outpatient (POV) | payer MEDICARE, SELFPAY ==
[2021-01-21 08:51] VITALS: BP 132/74; PULSE 68; RESP 18; O2SAT 99; BMI 38.3
--- NOTE | 2021-01-21 14:46 | HMH.PMCON ---
Assessment and Plan (1) Degenerative disc disease Status: Chronic Category: Medical (2) Low back pain Status: Chronic Category: Medical Code(s): M54.5 - Low back pain (3) Lumbar radiculopathy Status: Chronic Category: Medical Code(s): M54.16 - Radiculopathy, lumbar region - Assessment and plan all Dx Assessment and Plan for all problems:: We will schedule L5-S1 epidural steroid injection. I believe given his symptomology this will be beneficial. He is not on any anticoagulation therapy. Follow-up with him afterwards reassess his symptoms at that time. He has been instructed to call the office if he has any issues prior to his next appointment. Dr. Mcqueen has reviewed this note and agrees with this plan of care. This note was dictated using voice recognition software and may contain errors or omissions HPI - Data of Consult Consult date: 01/21/21 Requesting Physician: Tressa Gee APRN Primary Care Provider: Preet Morales - Consult Narrative Reason for consult: Back pain History of present illness: Mr. Elias is a 75 year old male who presents today for consultation regards his low back pain. Patient has pain that increases with activity and decreases with heat, ice, exercise. He denies numbness and tingling in his bilateral lower extremities however he does have pain radiating at times. Patient is tried and failed naproxen and gabapentin. Patient patient is interested in injective therapy he is failed over 6 weeks of conservative therapy. CC: Tressa Gee APRN [facility] History I have reviewed the patient's past medical history: Yes Medical History: Reports:: Diabetes Mellitus Type 2, Hyperlipidemia, Hypertension, Lung Disease (madeline) Denies:: Cancer, Diabetes Mellitus Type 1, MRSA, Seizures *Have you ever received a pneumonia vaccine?: Yes *Have you received a flu vaccine this season?: Yes Other Medical History: Reports: Arthritis Laterality Cases: Left: Other, Right: Arthroscopy Knee Other Surgeries: Yes: Appendectomy, Colonoscopy Amputation: No Fractures: No - *Social History Smoking Status: Current every day smoker Tobacco Type: cigars # Packs/Day (cigarettes): 1 Alcohol Intake: never Alcohol Intake Frequency:: a few times a week Substance Use Type: denies use *Occupational Status:: retired Housing: house Household Members: other *Travel in the last 8 weeks: None Family Hx:: Unable to obtain Review of Systems - Review of Systems ROS General: no recent weight change, no fever, no sleep disturbances Respiratory: no cough, no shortness of air, no recurring pulmonary infections Cardiovascular/Peripheral Vascular: No chest pain, No palpitations, no edema, no shortness of breath. Gastrointestinal: no new onset incontinence, normal bowel movements reported Genitourinary: no new onset incontinence Musculoskeletal: Back pain, leg pain Psychiatric: normal mood/ affect Neurological: [denies new onset weakness in extremities], [denies new onset balance issues] Meds Home Medications Medication Instructions Recorded Confirmed Type Canagliflozin [Invokana] 300 mg PO DAILY 02/21/18 01/10/21 History Gabapentin [Gabapentin 300mg Cap] 300 mg PO BID 02/21/18 01/10/21 History Glimepiride 4 mg PO DAILY 02/21/18 01/10/21 History Lisinopril/Hydrochlorothiazide 1 tab PO DAILY 02/21/18 01/10/21 History [Lisinopril-Hctz 20-12.5 mg Tab*] Metoprolol Tartrate 50 mg PO BID 02/21/18 01/10/21 History Pravastatin Sodium [Pravachol 40mg 40 mg PO HS 02/21/18 01/10/21 History Tablet] Aspirin [Aspir-Low] 81 mg PO DAILY 05/06/19 01/10/21 History Metformin HCl 1,000 mg PO BID 05/06/19 01/10/21 History Naproxen 500 mg PO BID 01/21/21 01/21/21 History Allergies Allergy/AdvReac Type Severity Reaction Status Date / Time No Known Allergies Allergy Verified 06/04/19 13:02 Objective Vital signs: Pulse Resp BP Pulse Ox 68 18 132/74 99 01/21/21 08:51 01/21/21
== END ==
PROVIDERS: PCP Internal Medicine; Visit Provider Clinical Nurse Specialist Family Health
DX: M51.16 Intervertebral disc disorders with radiculopathy, lumbar region (principal)
CPT/HCPCS: 99202; G0463

== ENCOUNTER 2021-01-29 12:52 | Day surgery (SDC) | payer MEDICARE, SELFPAY ==
[2021-01-29 13:04] VITALS: BP 150/70; PULSE 55; RESP 18; TEMP 36.6; O2SAT 98; BMI 38.3
[2021-01-29 13:40] VITALS: BP 128/89; BP 135/85; PULSE 85; RESP 18; O2SAT 98
--- NOTE | 2021-01-29 13:46 | HMH.PMPROC ---
- Procedure Date: 01/29/21 Time: 13:46 Anesthesiologist:: Benji Mcqueen MD Complications:: None Pre-procedure Diagnosis:: Disease of lumbar spine with lumbar radiculopathy symptoms Post-procedure Diagnosis:: Same Indications for Procedure:: Patient is a pleasant 75-year-old white male who we are treating for low back pain with lumbar radiculopathy symptoms. He has increasing pain in his low back rating down both lower extremities. We will plan on lumbar epidural steroid injection today to see if this gives him relief of his pain symptoms. Procedure Details:: lumbar epidural steroid injection under fluoroscopy Informed consent was obtained and the risk and benefits of the procedure was explained to the patient. The patient was taken to the procedure room. The patient was placed prone on the procedure table. The patient was prepped and draped in sterile fashion. C-arm fluoroscopy was used to view the lumbar spine. Skin and subcutaneous tissues were anesthetized using lidocaine. I placed an 18-gauge epidural needle and advanced into the L4-L5 interspace using fluoroscopic guidance and [id number] to air. After confirmation of needle placement in the epidural space with dye I injected 2 mL of lidocaine 1.5% with Depo-Medrol 80 mg. Patient tolerated the procedure well with no complications. Plan and Disposition:: We will follow-up with him in 2 weeks. Will reevaluate symptoms at that time.
[2021-01-29 13:51] VITALS: BP 134/77; PULSE 52; RESP 18; O2SAT 98
== END 2021-01-29 13:45 | disposition home or self-care (01) ==
LOC: SC.PAINP 12:54
PROVIDERS: PCP Internal Medicine; Visit Provider Anesthesiology
DX: M51.16 Intervertebral disc disorders with radiculopathy, lumbar region (principal); I10 Essential (primary) hypertension; E78.5 Hyperlipidemia, unspecified; E11.9 Type 2 diabetes mellitus without complications; M19.90 Unspecified osteoarthritis, unspecified site; Z90.49 Acquired absence of other specified parts of digestive tract
CPT/HCPCS: 62323; J1040; Q9966

== ENCOUNTER → 2021-02-25 11:04 | Outpatient (POV) | payer MEDICARE, SELFPAY ==
[2021-02-25 11:11] VITALS: BP 145/80; PULSE 65; RESP 18; O2SAT 97; BMI 38.3
--- NOTE | 2021-02-25 12:30 | P.CONS_ITS ---
[facility] Pain Management SOAP Note Subjective:: Patient is a 75-year-old white male who presents today for follow-up. He has been treated for degenerative disc disease lumbar spine with lumbar radiculopathy symptoms. He did undergo a lumbar epidural steroid injection. He says he is doing excellent today. His pain is a 0 out of 10. He is not having any pain at this time. He is much more functional and mobile at this time. Review of Systems General: No recent weight changes, no fever, no sleep disturbances Respiratory: No cough, no shortness of air, no recurring pulmonary infections Cardiovascular/peripheral vascular: No chest pain, no palpitations, no edema, no shortness of breath Gastrointestinal: No new onset incontinence, normal bowel movements reported Genitourinary: No new onset incontinence Musculoskeletal: Denies pain Psychiatric: Normal mood/affect Neurological: [Denies weakness in extremities], [denies balance issues] Objective:: Physical exam General: Alert and oriented x3, no acute distress, pleasant and cooperative, [on room air] Lungs: Respirations even and unlabored, symmetrical chest expansion Eyes: PERRL Musculoskeletal: Flexion and extension of [] spine nonguarded , deep tendon reflexes normal, strength in upper and lower extremities [5/5], normal gait noted Neurological: Speech clear, social worker health services equal, no gross sensory deficit Assessment:: Degenerative disc disease lumbar spine with lumbar radiculopathy symptoms Plan:: Patient is doing well overall since his lumbar epidural steroid injection. We will schedule him for a 3-month follow-up and see him back at the clinic at that time to reevaluate his symptoms. Patient has been instructed to contact the clinic with any concerns before the next appointment. Dr. Mcqueen has reviewed this note and agrees with this plan of care. This note was dictated using voice media[employer]unkerniYoubei Game software and make contain errors or omissions. [facility] History I have reviewed the patient's past medical history: Yes Medical History: Reports:: Diabetes Mellitus Type 2, Hyperlipidemia, Hypertension, Lung Disease (madeline) Denies:: Cancer, Diabetes Mellitus Type 1, MRSA, Seizures *Have you ever received a pneumonia vaccine?: No *Have you received a flu vaccine this season?: Yes Other Medical History: Reports: Arthritis. Denies: Blood Transfusion Reaction Laterality Cases: Left: Carpal Tunnel Release, Other, Right: Arthroscopy Knee Other Surgeries: Yes: Appendectomy, Colonoscopy Amputation: No Fractures: No - *Social History Smoking Status: Current every day smoker Tobacco Type: cigars # Packs/Day (cigarettes): 1 Alcohol Intake: never Alcohol Intake Frequency:: a few times a week Substance Use Type: denies use *Occupational Status:: unemployed Housing: house Household Members: other *Travel in the last 8 weeks: None Family Hx:: Unable to obtain
== END ==
PROVIDERS: PCP Internal Medicine; Visit Provider Clinical Nurse Specialist Family Health
DX: M51.16 Intervertebral disc disorders with radiculopathy, lumbar region (principal)
CPT/HCPCS: 99212; G0463

== ENCOUNTER → 2021-06-07 09:09 | Outpatient (POV) | payer MEDICARE, SELFPAY ==
[2021-06-07 09:14] VITALS: BP 140/90; PULSE 62; RESP 18; O2SAT 95; BMI 39.0
--- NOTE | 2021-06-07 09:30 | P.CONS_ITS ---
[facility] Pain Management SOAP Note Subjective:: Patient is a 76-year-old white male who presents today for follow-up. He is being treated for degenerative disc disease lumbar spine with lumbar radiculopathy symptoms. Patient says he is doing well today with a pain of 0 out of 10. The only time he is having pain upon awakening in the a.m. He has a catching sensation in his back. He says this is managed with exercises before getting out of bed. He says he is much more functional and able to golf and do more activity since the lumbar epidural steroid injection. Review of Systems General: No recent weight changes, no fever, no sleep disturbances Respiratory: No cough, no shortness of air, no recurring pulmonary infections Cardiovascular/peripheral vascular: No chest pain, no palpitations, no edema, no shortness of breath Gastrointestinal: No new onset incontinence, normal bowel movements reported Genitourinary: No new onset incontinence Musculoskeletal: No pain at this time Psychiatric: [Normal mood/affect] Neurological: [Denies weakness in extremities], [denies balance issues] Objective:: Physical exam General: Alert and oriented x3, no acute distress, pleasant and cooperative, [on room air] Lungs: Respirations even and unlabored, symmetrical chest expansion Eyes: PERRL Musculoskeletal: Flexion and extension of [] [spine] nonguarded, strength in upper and lower extremities [5/5], normal gait noted Neurological: Speech clear, [top polisher equal], no gross sensory deficit Assessment:: Degenerative disc disease lumbar spine with lumbar radiculopathy symptoms Plan:: Patient is doing well overall. He does have some pain at awakening each morning. We will order him diclofenac 75 mg 1 tablet p.o. twice daily. Per his medication list he does take naproxen. He has been advised to stop taking naproxen while taking this medication or any other anti-inflammatory with the medication. He has also been advised this is not a medication he would want to take long-term. We will give him the medication and follow-up with him to see if the medicine is giving him relief in the a.m. He will continue with his home stretching. We will see the patient back in 3 months or earlier if needed. Patient has been instructed to contact the clinic with any concerns before the next appointment. Dr. Mcqueen has reviewed this note and agrees with this plan of care. This note was dictated using voice recognition software and make contain errors or omissions. [facility] History I have reviewed the patient's past medical history: Yes Medical History: Reports:: Diabetes Mellitus Type 2, Hyperlipidemia, Hypertension, Lung Disease (madeline) Denies:: Cancer, Diabetes Mellitus Type 1, MRSA, Seizures *Have you ever received a pneumonia vaccine?: Yes *Have you received a flu vaccine this season?: No Other Medical History: Reports: Arthritis. Denies: Blood Transfusion Reaction Laterality Cases: Left: Carpal Tunnel Release, Other, Right: Arthroscopy Knee Other Surgeries: Yes: Appendectomy, Colonoscopy Amputation: No Fractures: No - *Social History Smoking Status: Current every day smoker Tobacco Type: cigars # Packs/Day (cigarettes): 1 Alcohol Intake: never Alcohol Intake Frequency:: a few times a week Substance Use Type: denies use *Occupational Status:: unemployed Housing: house Household Members: other *Travel in the last 8 weeks: None Family Hx:: Unable to obtain
== END ==
PROVIDERS: Visit Provider Clinical Nurse Specialist Family Health
DX: M51.16 Intervertebral disc disorders with radiculopathy, lumbar region (principal)
CPT/HCPCS: 99212; G0463

== ENCOUNTER → 2021-06-30 09:21 | Outpatient (CLI) | payer MEDICARE, SELFPAY ==
--- NOTE | 2021-06-30 09:27 | XR_ITS ---
PROCEDURE: XR FINGER RT MIN 2V CLINICAL INDICATION: RT INDEX FINGER INJURY 1 1/2 WEEKS AGO COMPARISON: No exams were available for comparison FINDINGS: No fracture or dislocation. No lytic or blastic change. There is normal mineralization. The joint spaces are well-preserved. No significant degenerative/arthritic changes. No erosive changes evident. Other findings:None. IMPRESSION: No acute findings. Dictated by: Jerome Damon MD 06/30/2021 11:39 Jerome Damon MD in [place] 06/30/2021 11:39
== END ==
PROVIDERS: PCP Internal Medicine; Visit Provider Internal Medicine
DX: S60.940A Unspecified superficial injury of right index finger, initial encounter (principal)
CPT/HCPCS: 73140

== ENCOUNTER → 2021-07-12 18:15 | Outpatient (CLI) | payer MEDICARE, SELFPAY ==
[2021-07-12 18:56] LABS: Basophils % 0.4 % (0.1-2.0); Eosinophils # 0.1 K/mm3 (0.0-0.4); Eosinophils % 0.7 % (0.1-12.0); Hematocrit 49.9 % (42.0-52.0); Hemoglobin 15.4 g/dL (14.1-18.0); Lymphocytes # 2.1 K/mm3 (0.7-4.5); Lymphocytes % 20.1 % (10-50); Mean Corpuscular HGB Conc 30.8 g/dL (31.8-35.4); Mean Corpuscular Hemoglobin 30.7 pg (27.0-31.2); Mean Corpuscular Volume 99.5 fl (80-94); Mean Platelet Volume 9.1 fl (7.4-10.4); Monocytes # 0.9 K/mm3 (0.1-1.0); Monocytes % 8.3 % (1.7-9.3); Neutrophils # 7.3 K/mm3 (1.8-7.8); Neutrophils % 70.5 % (37.0-80.0); Platelet Count 288 K/mm3 (142-424); Red Blood Count 5.02 M/mm3 (4.60-6.20); Red Cell Distribution Width 13.6 % (11.5-17.5); White Blood Count 10.4 K/mm3 (4.8-10.8)
[2021-07-12 19:57] LABS: Alanine Aminotransferase 19 U/L (12-78); Albumin Level 3.9 g/dl (3.5-5.0); Albumin/Globulin Ratio 1.4 (1.1-1.8); Alkaline Phosphatase 69 U/L (38-126); Anion Gap 12.5 mEq/L (5-15); Aspartate Amino Transferase 27 U/L (17-59); Bilirubin,Total 0.3 mg/dl (0.2-1.3); Blood Urea Nitrogen 14 mg/dl (9-20); Calcium 9.3 mg/dl (8.4-10.2); Carbon Dioxide 32 mmol/L (22.0-30.0); Chloride 101 mmol/L (98-107); Chol/HDL Ratio 3.8 (1-3.5); Cholesterol 143 mg/dl (140-200); Estimated Glomerular Filt Rate 131 ml/min (>60); GFR (African American) 159 ML/MIN (>60); Globulin 2.7 g/dL (1.3-3.2); Glucose 89 mg/dl (74-100); HDL Cholesterol 38 mg/dl (40-60); Potassium 4.5 mmoL/L (3.5-5.1); Sodium 141 mmol/L (136-145); Total Protein,Serum 6.6 g/dl (6.3-8.2); Triglycerides 72 mg/dl (30-150); VLDL Cholesterol 14 mg/dL (0-40)
[2021-07-12 20:07] LABS: Direct LDL Cholesterol 91.85 mg/dL (100-129)
[2021-07-12 20:53] LABS: Hemoglobin A1C 8.7 % (4.0-6.0)
[2021-07-14 15:29] LABS: Vitamin B12 510 pg/mL (239-931)
[2021-07-14 15:33] LABS: Folate 7.71 ng/mL
== END ==
PROVIDERS: Visit Provider Internal Medicine
DX: Z01.818 Encounter for other preprocedural examination (principal); E11.42 Type 2 diabetes mellitus with diabetic polyneuropathy; I10 Essential (primary) hypertension; E78.5 Hyperlipidemia, unspecified; E66.01 Morbid (severe) obesity due to excess calories; Z98.49 Cataract extraction status, unspecified eye
CPT/HCPCS: 80053; 80061; 82607; 82746; 83036; 85025

== ENCOUNTER → 2021-08-03 15:58 | Outpatient (CLI) | payer MEDICARE, SELFPAY ==
--- NOTE | 2021-08-03 16:01 | MR_ITS ---
PROCEDURE: MR SHOULDER LT WO CON CLINICAL INDICATION: SHOULDER/JOINT PAIN COMPARISON: No exams were available for comparison TECHNIQUE: Routine multiplanar multi echo sequences are performed without gadolinium enhancement. FINDINGS: Moderate hypertrophic changes are present at the acromioclavicular joint. Borderline narrowing of the sub acromial space. Minimal hypertrophic change along the undersurface of the acromion. There is small amount fluid in the subdeltoid region. There is no evidence of rotator cuff tear. There is moderate thickening of the supraspinatus tendon with increased in T2 signal consistent with tendinopathy/tendinosis. The subscapularis and teres minor tendons appear intact. Osteoarthritic changes are present at the glenohumeral joint. Slap tear of the glenoid labrum from 1-3 o'clock. The bicipital tendon is in place. No acute fracture or dislocation.. IMPRESSION: 1. Acromioclavicular hypertrophy with mild subacromial stenosis with osteoarthritic change of the glenohumeral joint. 2. No evidence of rotator cuff tear. 3. Tendinopathy/tendinosis of the supraspinatus tendon. Small amount fluid is present in the subdeltoid region. 4. Slap tear of the anterior glenoid labrum from the 1 to 3 o'clock position. Dictated by: Jerome Damon MD 08/04/2021 17:39 Jerome Damon MD in [place] 08/04/2021 17:39
== END ==
PROVIDERS: PCP Internal Medicine; Visit Provider Internal Medicine
DX: M25.512 Pain in left shoulder (principal)
CPT/HCPCS: 73221

== ENCOUNTER → 2021-08-30 08:24 | Outpatient (POV) | payer MEDICARE, SELFPAY ==
--- NOTE | 2021-08-30 08:39 | HMH.PAINSOAP ---
[facility] Pain Management SOAP Note Subjective:: Patient is a pleasant 76-year-old male who comes in here today for follow-up. Patient is currently being treated for degenerative disc disease of the lumbar spine with lumbar radiculopathy symptoms. Last time we saw this patient, we started him on diclofenac 75 mg twice daily. Patient says that he is feeling better. He says that he is taking this medication as needed. He says that he still prefers to take Advil as needed and does at home exercises in the morning. Patient says that he has been able to play golf again. Patient denies any side effects from any of his medications. Patient denies any changes in location of pain. Patient denies any loss of bladder or bowel functions. Patient is also taking gabapentin 300 mg twice a day that is prescribed by Dr. Morales. Patient rates his pain today as 0 out of 10. His Liban number is [phone] with a morphine equivalent of 0. Review of Systems General: No recent weight changes, no fever, no sleep disturbances Respiratory: No cough, no shortness of air, no recurring pulmonary infections Cardiovascular/peripheral vascular: No chest pain, no palpitations, no edema, no shortness of breath Gastrointestinal: No new onset incontinence, normal bowel movements reported Genitourinary: No new onset incontinence Musculoskeletal: Low back pain Psychiatric: [Normal mood/affect] Neurological: [Denies weakness in extremities], [denies balance issues] Objective:: Physical exam General: Alert and oriented x3, no acute distress, pleasant and cooperative Lungs: Respirations even and unlabored, symmetrical chest expansion Eyes: PERRL Musculoskeletal: Flexion and extension of lumbar [spine] somewhat guarded secondary to pain, [antalgic gait noted] Neurological: Speech clear, no gross sensory deficit Assessment:: Degenerative disc disease of the lumbar spine with lumbar radiculopathy Plan:: We will not refill the patient's diclofenac medication. Patient says that he likes taking Advil more. I advised the patient to not take this medication consistently and only take it as needed. I explained to the patient that this is not a long-term medication and can cause stomach upset or abdominal pain especially with his age. I gave the patient information regarding the risks and benefits of NSAIDs. We will see this patient in 6 months for a follow-up or earlier if he needs us. I discussed with the patient that if he ever needs another lumbar epidural steroid injection, he can give our clinic a call. Patient has been instructed to contact the clinic with any concerns before the next appointment. Dr. Mcqueen has reviewed this note and agrees with this plan of care. This note was dictated using voice recognition software and make contain errors or omissions. [facility] History Medical History: Reports:: Diabetes Mellitus Type 2, Hyperlipidemia, Hypertension, Lung Disease (madeline) Denies:: Cancer, Diabetes Mellitus Type 1, MRSA, Seizures *Have you ever received a pneumonia vaccine?: Yes *Have you received a flu vaccine this season?: No Other Medical History: Reports: Arthritis. Denies: Blood Transfusion Reaction Laterality Cases: Left: Carpal Tunnel Release, Other, Right: Arthroscopy Knee Other Surgeries: Yes: Appendectomy, Colonoscopy Amputation: No Fractures: No - *Social History Smoking Status: Current every day smoker Tobacco Type: cigars # Packs/Day (cigarettes): 1 Alcohol Intake: never Alcohol Intake Frequency:: a few times a week Substance Use Type: denies use *Occupational Status:: unemployed Housing: house Household Members: other *Travel in the last 8 weeks: Inside the [facility] Family Hx:: Unable to obtain
[2021-08-30 08:51] VITALS: BP 167/90; PULSE 66; RESP 18; O2SAT 98; BMI 37.6
== END ==
PROVIDERS: Visit Provider Clinical Nurse Specialist Family Health
DX: M51.16 Intervertebral disc disorders with radiculopathy, lumbar region (principal)
CPT/HCPCS: 99212; G0463

== ENCOUNTER 2021-10-14 08:00 | Outpatient (RCR) | payer MEDICARE, SELFPAY | END 2021-10-14 08:05 | disposition home or self-care (01) | LOC: OT 08:00 | PROVIDERS: PCP Internal Medicine | DX: M19.012 Primary osteoarthritis, left shoulder (principal) | CPT/HCPCS: 97010; 97014; 97110; 97140; 97165; 97530; G0283 ==

== ENCOUNTER → 2021-12-22 17:10 | Outpatient (CLI) | payer MEDICARE, SELFPAY ==
[2021-12-22 17:34] LABS: Basophils % 0.5 % (0.1-2.0); Eosinophils % 0.5 % (0.1-12.0); Hematocrit 45.4 % (42.0-52.0); Hemoglobin 15.1 g/dL (14.1-18.0); Lymphocytes # 2.1 K/mm3 (0.7-4.5); Lymphocytes % 24.5 % (10-50); Mean Corpuscular HGB Conc 33.4 g/dL (31.8-35.4); Mean Corpuscular Hemoglobin 31.8 pg (27.0-31.2); Mean Corpuscular Volume 95.2 fl (80-94); Mean Platelet Volume 8.3 fl (7.4-10.4); Monocytes # 0.6 K/mm3 (0.1-1.0); Monocytes % 6.9 % (1.7-9.3); Neutrophils # 5.8 K/mm3 (1.8-7.8); Neutrophils % 67.6 % (37.0-80.0); Platelet Count 221 K/mm3 (142-424); Red Blood Count 4.77 M/mm3 (4.60-6.20); Red Cell Distribution Width 14.1 % (11.5-17.5); White Blood Count 8.6 K/mm3 (4.8-10.8)
[2021-12-22 17:46] LABS: Chloride 105 mmol/L (98-107); Sodium 140 mmol/L (136-145)
[2021-12-22 17:48] LABS: Alanine Aminotransferase 20 U/L (12-78); Aspartate Amino Transferase 26 U/L (17-59); Blood Urea Nitrogen 18 mg/dl (9-20); Estimated Glomerular Filt Rate 110 ml/min (>60); GFR (African American) 133 ML/MIN (>60)
[2021-12-22 17:49] LABS: Albumin Level 3.9 g/dl (3.5-5.0); Albumin/Globulin Ratio 1.6 (1.1-1.8); Alkaline Phosphatase 68 U/L (38-126); Bilirubin,Total 0.5 mg/dl (0.2-1.3); Calcium 8.9 mg/dl (8.4-10.2); Carbon Dioxide 29 mmol/L (22.0-30.0); Chol/HDL Ratio 4.1 (1-3.5); Cholesterol 156 mg/dl (140-200); Globulin 2.5 g/dL (1.3-3.2); Glucose 98 mg/dl (74-100); HDL Cholesterol 38 mg/dl (40-60); Total Protein,Serum 6.4 g/dl (6.3-8.2); Triglycerides 84 mg/dl (30-150); VLDL Cholesterol 17 mg/dL (0-40)
[2021-12-22 18:00] LABS: Direct LDL Cholesterol 106.48 mg/dL (100-129)
[2021-12-22 18:20] LABS: Hemoglobin A1C 6.6 % (4.0-6.0); Thyroid Stimulating Hormone 1.48 uIU/mL (0.465-4.68)
[2021-12-22 19:03] LABS: Prostate Specific Ag Screen 1.4 ng/ml (0.0-4.0)
== END ==
PROVIDERS: Visit Provider Internal Medicine
DX: I10 Essential (primary) hypertension (principal); E78.5 Hyperlipidemia, unspecified; E11.42 Type 2 diabetes mellitus with diabetic polyneuropathy; E66.01 Morbid (severe) obesity due to excess calories; Z12.5 Encounter for screening for malignant neoplasm of prostate; Z79.84 Long term (current) use of oral hypoglycemic drugs
CPT/HCPCS: 80053; 80061; 83036; 84443; 85025; G0103

== ENCOUNTER 2021-12-29 17:16 | Emergency (ER) | payer MEDICARE, SELFPAY ==
[2021-12-29 17:19] VITALS: BP 124/83; PULSE 72; RESP 20; TEMP 36.6; O2SAT 96; BMI 37.0
[2021-12-29 17:28] VITALS: BP 124/83; PULSE 71; O2SAT 96
[2021-12-29 17:30] VITALS: BP 141/79; PULSE 72; O2SAT 96
[2021-12-29 18:01] VITALS: BP 131/64; PULSE 77; O2SAT 95
[2021-12-29 18:32] VITALS: BP 98/77; PULSE 61; O2SAT 97
[2021-12-29 19:15] VITALS: BP 124/68; PULSE 72; RESP 19; TEMP 36.6
--- NOTE | 2021-12-29 19:17 | PC.NURSE ---
Pt is upset stating that he has been waiting here for 3 hours without anyone checking on him but a few times. No offer of water or nothing. Explained to pt that until the doctor seen the pt no drinks can be given. Pt wants to sign out without being seen but wants a copy of his ama form that he is signing. Explained to the pt that is a document that he has to get from medical record tomorrow from the medical records office. PT is upset stating that he will not sign the paper unless he gets a copy right now and he is demanding the CPD be called up here. equipment maintenance supervisor contacted for further assistance for pt.
--- NOTE | 2021-12-29 19:28 | PC.NURSE ---
apartment maintenance supervisor is speaking with pt. He maintains his frustration with the hospital and wants to leave AMA. He does agree to sign form if he receives a copy at this time. He signed the form with S Call RN
== END 2021-12-29 19:30 | disposition left against medical advice (07) ==
PROVIDERS: Emergency Provider Emergency Medicine; PCP Internal Medicine
DX: Z53.21 Procedure and treatment not carried out due to patient leaving prior to being seen by health care provider (principal)
CPT/HCPCS: 99211

== ENCOUNTER 2022-04-25 16:33 | Emergency (ER) | payer MEDICARE, SELFPAY ==
[2022-04-25 16:34] VITALS: BP 159/88; PULSE 60; RESP 18; TEMP 36.6; O2SAT 98; BMI 37.2
--- NOTE | 2022-04-25 16:35 | CT_ITS ---
PROCEDURE INFORMATION: Exam: CT Head Without Contrast Exam date and time: 04/25/2022 4:36 PM Age: 76 years old Clinical indication: Stroke-like symptoms; Altered mental status/memory loss; Additional info: Confusion/memory loss TECHNIQUE: Imaging protocol: Computed tomography of the head without contrast. Radiation optimization: All CT scans at this facility use at least one of these dose optimization techniques: automated exposure control; mA and/or kV adjustment per patient size (includes targeted exams where dose is matched to clinical indication); or iterative reconstruction. Other technique: STROKE PROTOCOL was implemented. COMPARISON: HEADWO CT head/brain wo con 06/22/2018 6:45 PM FINDINGS: Brain: There is age-appropriate cerebral atrophy. Moderate changes of chronic small vessel ischemia within the cerebral white matter regions bilaterally. No acute infarct or hemorrhage. Cerebral ventricles: No ventriculomegaly. Paranasal sinuses: Minor chronic bilateral maxillary sinus disease. Mastoid air cells: Visualized mastoid air cells are well aerated. Bones/joints: Unremarkable. No acute fracture. Soft tissues: Unremarkable. IMPRESSION: No acute intracranial abnormality. ASSESSMENT: ASPECTS ([place] Stroke Program Early CT Score) is 10.
--- NOTE | 2022-04-25 16:35 | XR_ITS ---
PROCEDURE INFORMATION: Exam: XR Chest Exam date and time: 04/25/2022 4:56 PM Age: 76 years old Clinical indication: Screening exam; Other screening; Additional info: Confusion/memory loss. Stroke protocol TECHNIQUE: Imaging protocol: Radiologic exam of the chest. Views: 1 view. COMPARISON: CR XR RIBS RT MIN 3V W CXR1V 04/03/2020 3:00 PM FINDINGS: Lungs: Unremarkable. No consolidation. Pleural spaces: Unremarkable. No pleural effusion. No pneumothorax. Heart/Mediastinum: Unremarkable. No cardiomegaly. Bones/joints: Unremarkable. IMPRESSION: No acute findings.
--- NOTE | 2022-04-25 16:36 | PC.NURSE ---
1636 ATTEMPTED TO REACH DAUGHTER PER PT REQUEST, MESSAGE LEFT
--- NOTE | 2022-04-25 16:37 | PC.NURSE ---
PT TO CT AT THIS TIME
--- NOTE | 2022-04-25 16:48 | PC.NURSE ---
PT RETURNED FROM CT AT THIS TIME
--- NOTE | 2022-04-25 16:59 | PC.NURSE ---
BRYANNA CRESPO speaking with NEHA
[2022-04-25 17:02] VITALS: BP 147/79; PULSE 55; O2SAT 95
--- NOTE | 2022-04-25 17:07 | PC.NURSE ---
ED MD AT BEDSIDE FOR EVALUATION
[2022-04-25 17:10] LABS: Basophils # 0.1 K/mm3 (0-0.2); Basophils % 1.4 % (0.1-2.0); Eosinophils # 0.1 K/mm3 (0.0-0.4); Eosinophils % 0.9 % (0.1-12.0); Hematocrit 52.5 % (42.0-52.0); Hemoglobin 16.6 g/dL (14.1-18.0); Lymphocytes # 2.2 K/mm3 (0.7-4.5); Mean Corpuscular HGB Conc 31.6 g/dL (31.8-35.4); Mean Corpuscular Hemoglobin 31.1 pg (27.0-31.2); Mean Corpuscular Volume 98.4 fl (80-94); Mean Platelet Volume 8.2 fl (7.4-10.4); Monocytes # 0.7 K/mm3 (0.1-1.0); Monocytes % 8.9 % (1.7-9.3); Neutrophils # 5.2 K/mm3 (1.8-7.8); Neutrophils % 62.8 % (37.0-80.0); Platelet Count 242 K/mm3 (142-424); Red Blood Count 5.33 M/mm3 (4.60-6.20); Red Cell Distribution Width 13.7 % (11.5-17.5); White Blood Count 8.3 K/mm3 (4.8-10.8)
--- NOTE | 2022-04-25 17:13 | HMH.EDAMS ---
ED Disposition Clinical Impression: Altered mental status Qualifiers: Altered mental status type: disorientation Qualified Code(s): R41.0 - Disorientation, unspecified Disposition: Home, Self-Care Condition on Discharge: Good Instructions: DI for Altered Mental Status Referrals: Preet Morales MD [Primary Care Provider] - Lucia Morales MD [Staff Physician] - - Critical Care Critical Care Time: No Attestation: On 04/25/22, the high probability of a clinically significant, sudden or life threatening deterioration of the following system(s) required my full and direct attention, intervention and personal management. The time I documented below is in addition to time spent performing reported procedures but includes the following listed in this critical care notation. Medical Decision Making - Medical Records Medical records reviewed: Yes: I reviewed the patient's medical records. - [place] Inquiry Pt receiving controlled substance: No Vital Signs: 04/25/22 16:34 04/25/22 17:02 04/25/22 17:31 Temperature 97.8 F Temperature Source Oral Pulse Rate 55 L 54 L Pulse Rate [Radial] 60 Respiratory Rate 18 Blood Pressure 147/79 H 148/75 H Blood Pressure [Right Arm] 159/88 H Blood Pressure Mean 99 Blood Pressure Mean [Right Arm] 111 Blood Pressure Source [Right Arm] Automatic Cuff Blood Pressure Position [Right Arm] Sitting 02 Sat by Pulse Oximetry 98 95 95 Oxygen Delivery Method Room Air 04/25/22 18:00 04/25/22 18:31 Temperature Temperature Source Pulse Rate 49 L 57 L Pulse Rate [Radial] Respiratory Rate Blood Pressure 144/99 H 144/90 H Blood Pressure [Right Arm] Blood Pressure Mean Blood Pressure Mean [Right Arm] Blood Pressure Source [Right Arm] Blood Pressure Position [Right Arm] 02 Sat by Pulse Oximetry 98 98 Oxygen Delivery Method - Lab Data Lab Results 04/25/22 16:55: WBC 8.3, RBC 5.33, Hgb 16.6, Hct 52.5 H, MCV 98.4 H, MCH 31.1, MCHC 31.6 L, RDW 13.7, Plt Count 242, MPV 8.2, Neut % (Auto) 62.8, Lymph % (Auto) 26.0, [place] % (Auto) 8.9, Eos % (Auto) 0.9, Baso % (Auto) 1.4, Neut # (Auto) 5.2, Lymph # (Auto) 2.2, [place] # (Auto) 0.7, Eos # (Auto) 0.1, Baso # (Auto) 0.1 04/25/22 16:55: Sodium 142, Potassium 3.9, Chloride 105, Carbon Dioxide 33 H, Anion Gap 7.9, BUN 21 H, Creatinine 0.70, Estimated Creat Clear 109, Estimated GFR 110, Est GFR ( Amer) 133, Glucose 114 H, Calcium 10.3 H, Total Bilirubin < 0.1 L, AST 26, ALT 24, Alkaline Phosphatase 84, Total Protein 7.4, Albumin 4.5, Globulin 2.9, Albumin/Globulin Ratio 1.6 04/25/22 16:55: Troponin I 0.02, Lipase 65, TSH 1.90 04/25/22 16:55: NT-Pro-B Natriuret Pep 218 04/25/22 16:55: Plasma/Serum Alcohol < 10 04/25/22 17:40: Urine Color Yellow, Urine Appearance Clear, Urine pH 6.5, Ur Specific [place] 1.015, Urine Protein Negative, Urine Glucose (UA) 3+, Urine Ketones Negative, Urine Blood Negative, Urine Nitrate Negative, Urine Bilirubin Negative, Urine Urobilinogen 2.0, Ur Leukocyte Esterase Negative, Urine RBC 3-5, Urine WBC None, Ur Squamous Epith Cells Occasional, Urine Bacteria None 04/25/22 17:40: Urine Opiates Screen Negative, Urine Methadone Screen Negative, Ur Barbituates Screen Negative, Ur Phencyclidine Scrn Negative, Ur Amphetamines Screen Negative, U Benzodiazepines Scrn Negative, Urine Cocaine Screen Negative, U Marijuana (THC) Screen Negative Result diagrams: 04/25/22 16:55 04/25/22 16:55 Orders (Tests/Meds): ED MEDICATIONS Generic Name Dose Route Start Last Admin Trade Name Freq PRN Reason Stop Dose Admin Sodium Chloride 10 ml 04/25/22 16:35 Sodium Chloride 0.9% 10ml Flush Syringe IV 05/25/22 16:34 NEEDED PRN Maintain IV Site ORDERS Category Date Time Status Troponin I Q3H Lab 04/25/22 20:15 Ordered Troponin I Q3H Lab 04/25/22 23:15 Ordered - Radiology Data #1 Image(s): Chest Image Reviewed: Yes I reviewed the patient's radiology results, Yes I rev
[2022-04-25 17:16] LABS: Chloride 105 mmol/L (98-107); Sodium 142 mmol/L (136-145)
[2022-04-25 17:17] LABS: Potassium 3.9 mmoL/L (3.5-5.1)
[2022-04-25 17:19] LABS: Alanine Aminotransferase 24 U/L (12-78); Albumin Level 4.5 g/dl (3.5-5.0); Albumin/Globulin Ratio 1.6 (1.1-1.8); Alkaline Phosphatase 84 U/L (38-126); Anion Gap 7.9 mEq/L (5-15); Aspartate Amino Transferase 26 U/L (17-59); Blood Urea Nitrogen 21 mg/dl (9-20); Calcium 10.3 mg/dl (8.4-10.2); Carbon Dioxide 33 mmol/L (22.0-30.0); Creatinine Clearance Estimated 109 mL/min (50-200); Estimated Glomerular Filt Rate 110 ml/min (>60); GFR (African American) 133 ML/MIN (>60); Globulin 2.9 g/dL (1.3-3.2); Glucose 114 mg/dl (74-100); Total Protein,Serum 7.4 g/dl (6.3-8.2)
[2022-04-25 17:22] LABS: Bilirubin,Total < 0.1 mg/dl (0.2-1.3)
--- NOTE | 2022-04-25 17:22 | PC.NURSE ---
PT RESTING COMFORTABLY, TALKING ON PHONE. DAUGHTER AT BEDSIDE
--- NOTE | 2022-04-25 17:28 | PC.NURSE ---
PT PROVIDED URINAL FOR URINE SPECIMEN
[2022-04-25 17:31] VITALS: BP 148/75; PULSE 54; O2SAT 95
--- NOTE | 2022-04-25 17:35 | PC.NURSE ---
pt unhooked to go to restroom
[2022-04-25 17:44] LABS: Microscopic, Urine URINE MICROSCOPIC (MICROSCOPIC)
[2022-04-25 17:45] LABS: Appearance,Urine CLEAR (Clear); Bilirubin,Urine Negative (Negative); Blood, Urine Negative (Negative); Color,Urine YELLOW (Yellow); Glucose,Urine (UA) 3+ (Negative); Ketones,Urine Negative (Negative); Leukocyte Esterase,Urine Negative (Negative); Nitrate,Urine Negative (Negative); PH,Urine 6.5 (5.0-8.5); Protein,Urine Negative (Negative); Specific Gravity, Urine 1.015 (1.005-1.030)
[2022-04-25 17:57] LABS: Squamous Epithelial Cell,Urine Occasional #/hpf (0-5)
[2022-04-25 17:58] LABS: Barbiturates Screen,Urine Negative ng/ml (<200); Benzodiazepines Screen,Urine Negative ng/ml (<200)
[2022-04-25 17:59] LABS: Amphetamine/Metha Screen,Urine Negative ng/ml (<1000); Cannabinoid Screen,Urine Negative ng/ml (<50)
[2022-04-25 18:00] VITALS: BP 144/99; PULSE 49; O2SAT 98
[2022-04-25 18:00] LABS: Cocaine Screen,Urine Negative ng/ml (<300)
[2022-04-25 18:01] LABS: Methadone Screen,Urine Negative ng/ml (<300); Opiate Screen,Urine Negative ng/ml (<300)
[2022-04-25 18:02] LABS: Phencyclidine Screen,Urine Negative ng/ml (<25)
--- NOTE | 2022-04-25 18:23 | PC.NURSE ---
1820 ED MD AT BEDSIDE
[2022-04-25 18:31] VITALS: BP 144/90; PULSE 57; O2SAT 98
[2022-04-25 18:45] LABS: Lipase 65 U/L (23-300)
--- NOTE | 2022-04-25 18:46 | PC.NURSE ---
ROUNDED ON PT AT THIS TIME. FAMILY AT BEDSIDE. NO NEEDS VOICED
[2022-04-25 18:55] LABS: NT Pro Brain Natriuretic Pep. 218 pg/mL (0-450)
[2022-04-25 18:59] LABS: Troponin I 0.02 ng/ml (0.00-0.034)
[2022-04-25 19:02] LABS: Ethyl Alcohol < 10 mg/dl (0-10)
[2022-04-25 19:34] VITALS: BP 145/91; PULSE 58; RESP 18; TEMP 36.8; O2SAT 99
[2022-04-26 10:05] LABS: Chol/HDL Ratio 4.4 (1-3.5); Cholesterol 157 mg/dl (140-200); HDL Cholesterol 36 mg/dl (40-60); Triglycerides 192 mg/dl (30-150); VLDL Cholesterol 38 mg/dL (0-40)
[2022-04-26 10:19] LABS: Hemoglobin A1C 6.5 % (4.0-6.0)
[2022-04-27 08:36] LABS: Direct LDL Cholesterol 87 mg/dL (100-129)
== END 2022-04-25 19:38 | disposition home or self-care (01) ==
PROVIDERS: Emergency Provider Emergency Medicine; PCP Internal Medicine
DX: R41.82 Altered mental status, unspecified (principal); I10 Essential (primary) hypertension; E78.5 Hyperlipidemia, unspecified; E11.9 Type 2 diabetes mellitus without complications; G47.33 Obstructive sleep apnea (adult) (pediatric); M19.90 Unspecified osteoarthritis, unspecified site; F17.290 Nicotine dependence, other tobacco product, uncomplicated; Z79.1 Long term (current) use of non-steroidal anti-inflammatories (NSAID); Z79.82 Long term (current) use of aspirin; Z79.84 Long term (current) use of oral hypoglycemic drugs; Z79.899 Other long term (current) drug therapy
CPT/HCPCS: 70450; 71045; 80053; 80061; 80305; 81001; 83036; 83690; 83880; 84443; 84484; 85025; 99283

== ENCOUNTER → 2022-04-30 09:42 | Outpatient (CLI) | payer MEDICARE, SELFPAY ==
--- NOTE | 2022-04-30 09:49 | MR_ITS ---
FINAL REPORT CLINICAL HISTORY: CONFUSION, AMNESTIC DISORDER,ALTERED MENTAL STATUS. COMPARISON: 06/22/2018, 04/25/2022 FINDINGS: Multiplanar MR imaging of the brain was performed without contrast. There is mild age-appropriate atrophy. There are scattered foci of increased T2 signal in the cerebral white matter that have a nonspecific appearance but likely represent mild chronic ischemic/gliotic changes. There is no evidence of intracranial hemorrhage or mass. No abnormal ventricular dilatation is identified. No abnormal extra-axial fluid collection is seen. No abnormality is seen on the diffusion weighted images. The posterior fossa and brainstem are unremarkable. Normal major vessel vascular flow voids are seen. There is a 20 mm left parotid mass which previously measured 14 mm in 2018. Findings may represent pleomorphic adenoma, cyst or possibly other neoplasm. IMPRESSION: Age-appropriate atrophy and mild chronic ischemic/gliotic changes. Left parotid mass, increased from prior exam. Consider follow-up. Reviewed, Interpreted and Dictated by Phi Andrews III, MD Transcribed by Cherelle Mcfarlane Authenticated and [facility]
== END ==
PROVIDERS: PCP Internal Medicine; Visit Provider Internal Medicine
DX: F44.89 Other dissociative and conversion disorders (principal); F04 Amnestic disorder due to known physiological condition
CPT/HCPCS: 70551

== ENCOUNTER → 2022-05-12 12:10 | Outpatient (CLI) | payer MEDICARE, SELFPAY ==
--- NOTE | 2022-05-12 12:59 | ECG_ITS ---
APPROVED REPORT Exam: Resting ECG HR:44 bpm ECG Measurements Heart Rate 44 AXES AZ 197 P -1 QRSd 92 QRS 34 QT 465 T 16 QTc 415 Conclusion SINUS BRADYCARDIA BORDERLINE ECG UNCONFIRMED REPORT Electronically signed by : Beau Saleh MD 05/14/2022 08:07:26
[2022-05-12 13:16] LABS: Hemoglobin A1C 6.2 % (4.0-6.0)
[2022-05-12 14:47] LABS: Vitamin B12 478 pg/mL (239-931)
[2022-05-12 14:51] LABS: Folate 6.85 ng/mL
[2022-05-13 11:16] LABS: Rapid Plasma Reagin Ab Titer Non Reactive (NonRea<1:1)
== END ==
PROVIDERS: PCP Internal Medicine; Visit Provider Nurse Practitioner Family
DX: E11.9 Type 2 diabetes mellitus without complications (principal); G93.40 Encephalopathy, unspecified; R00.1 Bradycardia, unspecified; R41.0 Disorientation, unspecified; Z79.84 Long term (current) use of oral hypoglycemic drugs
CPT/HCPCS: 36415; 82607; 82746; 83036; 84443; 86592; 93005; 93270; 94762

== ENCOUNTER → 2022-06-08 05:38 | Outpatient (CLI) | payer MEDICARE, SELFPAY ==
--- NOTE | 2022-06-08 05:38 | NM_ITS ---
APPROVED REPORT Exam: Nuclear Stress Test Indication: HTN, DM, TOB USE, SOB, FATIGUE Patient Location: Outpatient Stress Tech: Joseline Spangler [place] Tech:Janice Singh FILIPPOReza RT (R)(N)(M) Ht: 5 ft 11 in Wt: 265 lbs HR: 48 bpm BP: 131/65 mmHg BSA: 2.38 m2 TID: 1.12 BMI: 36.9 History: HTN, DM, TOB USE, SOB, FATIGUE Procedure: Patient received a 0.4 mg of intravenous Lexiscan, resting heart rate 48 bpm, resting blood pressure 131/65 mmHg, with Lexiscan maximum heart rate achived was 82 bpm which is Less than 85 % of the maximum predicted heart rate and blood pressure was 128/70 mmHg. With Lexiscan, patient denied any complaint of chest pain. Electrocardiogram Resting electrocardiogram showed sinus bradycardia, with Lexiscan there is less than 1.[address] segment depression from the baseline EKG. The EKG portion of the Lexiscan is nondiagnostic. Cardiac Stress and Resting SPECT Images: Cardiac Stress and Resting SPECT images were obtained using technetium 99m Myoview 30.7 mCi stress and 10.37 mCi at rest. Gated SPECT analysis of segmental wall motion and calculation of the ejection fraction also done. Prone images were also obtained. Cardiac stress and rest SPECT images show uniform myocardial activity without segmental perfusion abnormality, computer derived ejection fraction is 61% with no regional wall motion abnormality, right ventricle is normal size and contractility. Conclusion: 1. The EKG portion of the Lexiscan is nondiagnostic. 2. No scintigraphic evidence of reversible ischemia seen, computer derived ejection fraction is 61% with no regional wall motion abnormality, right ventricle is normal size and contractility. 3. Normal Lexiscan Myoview study. Electronically signed by : James Clay MD 06/09/2022 06:26:09
--- NOTE | 2022-06-08 05:38 | CA_ITS ---
APPROVED REPORT EXAM: Comprehensive 2D, Doppler, and color-flow Echocardiogram Applications Processor: Becca Castillo RDCS Ht: 5 ft 11 in Wt: 265lbs BSA: 2.38 BP: 129/69 mmHg Indications: DUVALL,H/O AF,[place],OBESITY,DM 2D Dimensions LVOT 2.10 cm (M/F) 1.5-2.5 M-Mode Dimensions RVDd 2.21 cm (0.9-2.6) LA Diam 3.28 cm (1.9-4.0) LVDd 4.83 cm (3.5-5.7) Ao Diam 3.89 cm (2.0-3.7) LVDs 3.54 cm (3.5-5.7) IVSd 1.18 cm (0.6-1.1) PWd 0.91 cm (0.6-1.1) EF (Teich) 52.10% FS 26.70% EDV (Teich) 109.10 mL ESV (Teich) 52.30 mL LV Diastology E Decel Time 210.00 (160-240 msec) E/A Ratio 0.8 MED E' 6.20 (< 7 cm/sec) E'/MED E' Ratio 8.21 (>14) LAT E' 9.80 (<10 cm/sec) E/LAT E' Ratio 5.19 (>14) Mitral Valve MV E Max Phillip. 51.00 (40-130 cm/s) MV A Velocity 65.00 (40-130 cm/s) E/A Ratio 0.78 MV Decel. Time 210.00 (160-240 ms) MV PHT 62.00 ms Left Ventricle Left atrium is mildly enlarged, left ventricle is normal size, estimated ejection fraction 55% with no regional wall motion abnormality, left ventricle wall thickness is upper limit of the normal, diastolic parameters are inconclusive. Right Ventricle Right atrium and right ventricle are normal size and contractility. Aortic Valve Aortic valve is minimally thickened and fibrosed, there is no aortic stenosis, there is trace aortic insufficiency. Mitral Valve Mitral valve grossly normal, there is trace mitral regurgitation. Tricuspid Valve Tricuspid valve grossly normal, there is trace tricuspid regurgitation, tricuspid regurgitation jet velocity is inadequate for calculation of the right ventricular systolic pressure. Pulmonic Valve Pulmonic valve is poorly visualized. Great Vessels Aortic root is normal size. Inferior vena cava is poorly visualized. Pericardium No significant pericardial effusion. Conclusion 1. Normal left ventricular size preserved left ventricular systolic function, estimated ejection fraction 55% with no regional wall motion abnormality, diastolic parameters are inconclusive. 2. Trace aortic, mitral and tricuspid regurgitation. 3. No significant pericardial effusion. 4. Inferior vena cava is poorly visualized. Electronically signed by : James Clay MD 06/09/2022 06:20:32
--- NOTE | 2022-06-08 05:38 | CA_ITS ---
APPROVED REPORT Exam: Pharmacologic Technologist: Joseline Spangler, Ht: 5 ft 11 in Wt: 258 lbs BSA: 2.35 m2 HR: 48 bpm BP: 131/65 mmHg Rhythm: SINUS AQUILES, OTHERWISE NORMAL Medical History Medical History: HTN, Hyperlipidemia, Diabetes Medications: Aspirin,,,,, Pravastatin,,,,, Metformin,,,,, Gabapentin,,,,, Metoprolol Tartrate,,,,, Glimepiride,,,,, Naproxen,,,,, Apixaban,,,,, CaNAGLIFLOZIN,,,,, Diclofenac Sodium,,,,, Lisinopril-HCTZ,,,,, Allergies: No known drug allergies Cardiac Risk Factors: HTN, Hyperlipidemia, Diabetes , Smoking Stress Test Details Test: LEXISCAN HR Resting HR: 52 bpm Max Heart Rate (APMHR): 144.883170 bpm Max HR Achieved: 85 bpm Target HR (85% APMHR): 122.807540 bpm % of APMHR: 59.03 Recovery HR: 55 bpm BP Resting BP: 131/65 mmHg Max BP: 136/64 mmHg Recovery BP: 136.0/64.0 mmHg ECG Resting ECG: SINUS AQUILES, OTHERWISE NORMAL Clinical Exercise duration: 04:01 min Highest Stage Achieved: Exercise capacity: 1.0 METs Stress ECG Conclusion PT HAD NAUSEA. NO CP. ATRIAL FIBRILLATION NO SIGNIFICANT CHANGES AFIB DEVELOPED WITH LEXISCAN STRESS MYOVIEW IMAGES REPORTED SEPARATELY Test Summary REST 06:37 . . 52 . 131/ 65 . . Stage 1 01:00 . . 85 . . . . Stage 2 01:00 . . 62 . . . . Stage 3 01:00 . . 63 . 128/ 70 . . Stage 4 01:00 . . 50 . . . . Stage 4 01:01 . . 50 . . . Stop exercise at 04:01 RECOVERY 01:00 . . 68 . 121/ 63 . . RECOVERY 02:00 . . 60 . 129/ 72 . . RECOVERY 03:00 . . 56 . 129/ 72 . . RECOVERY 03:25 . . 64 . 136/ 64 . . Electronically signed by : James Clay MD 06/09/2022 06:23:31
== END ==
PROVIDERS: PCP Internal Medicine; Visit Provider Physician Assistant
DX: E11.9 Type 2 diabetes mellitus without complications (principal); G47.33 Obstructive sleep apnea (adult) (pediatric); I48.91 Unspecified atrial fibrillation; R06.00 Dyspnea, unspecified; R42 Dizziness and giddiness; R55 Syncope and collapse; Z79.84 Long term (current) use of oral hypoglycemic drugs
CPT/HCPCS: 78452; 93017; 93306; A9502; J2785

== ENCOUNTER → 2022-06-21 10:20 | Outpatient (CLI) | payer MEDICARE, SELFPAY ==
[2022-06-21 10:37] LABS: Coronavirus 19, PCR Not Detected (NotDetected); Influenza A, PCR Not Detected (NotDetected); Influenza B, PCR Not Detected (NotDetected)
[2022-06-21 11:22] LABS: Basophils # 0.1 K/mm3 (0-0.2); Eosinophils # 0.1 K/mm3 (0.0-0.4); Hematocrit 48.4 % (42.0-52.0); Hemoglobin 15.5 g/dL (14.1-18.0); Lymphocytes # 1.7 K/mm3 (0.7-4.5); Lymphocytes % 19.5 % (10-50); Mean Corpuscular Hemoglobin 30.7 pg (27.0-31.2); Mean Platelet Volume 8.2 fl (7.4-10.4); Monocytes # 0.6 K/mm3 (0.1-1.0); Monocytes % 6.6 % (1.7-9.3); Neutrophils # 6.3 K/mm3 (1.8-7.8); Neutrophils % 71.9 % (37.0-80.0); Platelet Count 237 K/mm3 (142-424); Red Blood Count 5.04 M/mm3 (4.60-6.20); Red Cell Distribution Width 13.6 % (11.5-17.5); White Blood Count 8.8 K/mm3 (4.8-10.8)
[2022-06-21 12:54] LABS: Chloride 100 mmol/L (98-107); Potassium 4.5 mmoL/L (3.5-5.1); Sodium 138 mmol/L (136-145)
[2022-06-21 12:57] LABS: Anion Gap 13.5 mEq/L (5-15); Blood Urea Nitrogen 20 mg/dl (9-20); Carbon Dioxide 29 mmol/L (22.0-30.0); Estimated Glomerular Filt Rate 110 ml/min (>60); GFR (African American) 133 ML/MIN (>60)
[2022-06-21 12:58] LABS: Calcium 9.6 mg/dl (8.4-10.2); Glucose 128 mg/dl (74-100)
== END ==
PROVIDERS: PCP Internal Medicine; Visit Provider Nurse Practitioner Family
DX: E11.9 Type 2 diabetes mellitus without complications (principal); G47.33 Obstructive sleep apnea (adult) (pediatric); I48.0 Paroxysmal atrial fibrillation; R00.1 Bradycardia, unspecified; R42 Dizziness and giddiness; R55 Syncope and collapse; E78.5 Hyperlipidemia, unspecified; I10 Essential (primary) hypertension; Z01.812 Encounter for preprocedural laboratory examination; Z20.822 Contact with and (suspected) exposure to COVID-19; Z79.84 Long term (current) use of oral hypoglycemic drugs
CPT/HCPCS: 36415; 80048; 85025; C9803; U0003; U0005

== ENCOUNTER 2022-06-23 08:40 | Day surgery (SDC) | payer MEDICARE, SELFPAY ==
[2022-06-23 08:44] VITALS: BMI 36.3
[2022-06-23 09:03] VITALS: BP 158/92; PULSE 50; RESP 18; O2SAT 94
--- NOTE | 2022-06-23 10:05 | EXP.LOOP ---
[facility] Loop Recorder Date: 06/23/22 Time: 09:30 Procedure Performed:: Implantation of loop recorder Indication:: Paroxysmal atrial fibrillation Technique:: Patient was brought to the cardiac Hand Salter.? After informed consent obtained, 1% lidocaine with epinephrine was used to anesthetize the site along the left anterior aspect of the chest near the sternal border.? Using the preformed scalpel, an incision was made and using the supplied preloaded apparatus, the loop recorder was placed subcutaneously without difficulty.? Following the deployment of the loop recorder interrogation of the device was performed to ensure appropriate voltage was being detected (0.3 mV).? Once this was verified, Steri-Strips were placed over the incision and the patient was prepped to discharge home.? Patient tolerated the procedure well with minimal discomfort. Impression:: Successful implantation of loop recorder Serial Number:: Comunitae model M301 Lux-DX Serial #[id number] Plan:: Routine postop care
== END 2022-06-23 09:44 | disposition home or self-care (01) ==
LOC: CATHLAB 08:41
PROVIDERS: PCP Internal Medicine; Visit Provider Internal Medicine
DX: I48.0 Paroxysmal atrial fibrillation (principal); E11.9 Type 2 diabetes mellitus without complications; E78.5 Hyperlipidemia, unspecified; I10 Essential (primary) hypertension; F17.210 Nicotine dependence, cigarettes, uncomplicated; Z79.899 Other long term (current) drug therapy; Z79.01 Long term (current) use of anticoagulants; Z79.84 Long term (current) use of oral hypoglycemic drugs
CPT/HCPCS: 33285

== ENCOUNTER 2022-08-08 02:14 | Emergency (ER) | payer MEDICARE, SELFPAY ==
[2022-08-08 02:30] VITALS: BP 132/74; PULSE 75; RESP 18; TEMP 36.8; O2SAT 96; BMI 35.1
--- NOTE | 2022-08-08 02:34 | CT_ITS ---
PROCEDURE INFORMATION: Exam: CT Head Without Contrast Exam date and time: 08/08/2022 2:41 AM Age: 77 years old Clinical indication: Pain; Headache not specified; Additional info: Severe headache TECHNIQUE: Imaging protocol: Computed tomography of the head without contrast. Total images: 45 Radiation optimization: All CT scans at this facility use at least one of these dose optimization techniques: automated exposure control; mA and/or kV adjustment per patient size (includes targeted exams where dose is matched to clinical indication); or iterative reconstruction. COMPARISON: MR HEAD/BRAIN WO CON 04/30/2022 10:04 AM FINDINGS: Brain: Global brain atrophy and severe chronic white matter ischemic changes are present. Cerebral ventricles: No ventriculomegaly. Paranasal sinuses: Visualized sinuses are unremarkable. No fluid levels. Mastoid air cells: Visualized mastoid air cells are well aerated. Parotid and submandibular glands: In the anterior left parotid gland, 13 x 17 mm soft tissue density nodule is redemonstrated and nonspecific, known to be enlarging based on prior MRI report. Bones/joints: Unremarkable. No acute fracture. Soft tissues: Unremarkable. Other findings: Benign appearing dural calcifications are present. Senescent calcifications in the basal ganglia. IMPRESSION: 1. Global brain atrophy and severe chronic white matter ischemic changes are present. No acute intracranial abnormality. 2. In the anterior left parotid gland, 13 x 17 mm soft tissue density nodule is redemonstrated and nonspecific, known to be enlarging based on prior MRI report. 6 month followup ultrasound can be considered to further define.
--- NOTE | 2022-08-08 02:34 | ECG_ITS ---
APPROVED REPORT Exam: Resting ECG HR:65 bpm ECG Measurements Heart Rate 65 AXES IA 191 P 10 QRSd 88 QRS 37 QT 401 T 61 QTc 413 Conclusion SINUS RHYTHM WITH MARKED SINUS ARRHYTHMIA BORDERLINE ECG UNCONFIRMED REPORT Electronically signed by : Beau Saleh MD 08/08/2022 19:45:31
[2022-08-08 02:40] LABS: Basophils # 0.1 K/mm3 (0-0.2); Basophils % 1.2 % (0.1-2.0); Eosinophils # 0.1 K/mm3 (0.0-0.4); Eosinophils % 0.8 % (0.1-12.0); Hematocrit 51.7 % (42.0-52.0); Hemoglobin 17.2 g/dL (14.1-18.0); Lymphocytes # 3.1 K/mm3 (0.7-4.5); Lymphocytes % 24.7 % (10-50); Mean Corpuscular HGB Conc 33.2 g/dL (31.8-35.4); Mean Corpuscular Hemoglobin 31.4 pg (27.0-31.2); Mean Corpuscular Volume 94.4 fl (80-94); Mean Platelet Volume 8.4 fl (7.4-10.4); Monocytes # 1.1 K/mm3 (0.1-1.0); Monocytes % 8.9 % (1.7-9.3); Neutrophils % 64.5 % (37.0-80.0); Platelet Count 280 K/mm3 (142-424); Red Blood Count 5.48 M/mm3 (4.60-6.20); Red Cell Distribution Width 13.9 % (11.5-17.5); White Blood Count 12.4 K/mm3 (4.8-10.8)
[2022-08-08 02:41] LABS: Chloride 97 mmol/L (98-107); Sodium 141 mmol/L (136-145)
[2022-08-08 02:43] LABS: Alanine Aminotransferase 26 U/L (12-78); Alkaline Phosphatase 84 U/L (38-126); Aspartate Amino Transferase 37 U/L (17-59); Bilirubin,Total 0.5 mg/dl (0.2-1.3); Blood Urea Nitrogen 28 mg/dl (9-20); Carbon Dioxide 32 mmol/L (22.0-30.0); Creatinine Clearance Estimated 102 mL/min (50-200); Estimated Glomerular Filt Rate 73 ml/min (>60); GFR (African American) 88 ML/MIN (>60)
[2022-08-08 02:44] LABS: Albumin Level 4.7 g/dl (3.5-5.0); Albumin/Globulin Ratio 1.3 (1.1-1.8); Calcium 10.4 mg/dl (8.4-10.2); Globulin 3.5 g/dL (1.3-3.2); Glucose 155 mg/dl (74-100); Total Protein,Serum 8.2 g/dl (6.3-8.2)
[2022-08-08 02:52] LABS: Appearance,Urine CLEAR (Clear); Bilirubin,Urine Negative (Negative); Blood, Urine Negative (Negative); Color,Urine YELLOW (Yellow); Glucose,Urine (UA) 3+ (Negative); Ketones,Urine Negative (Negative); Leukocyte Esterase,Urine Negative (Negative); Microscopic, Urine URINE MICROSCOPIC (MICROSCOPIC); Nitrate,Urine Negative (Negative); Protein,Urine Negative (Negative); Specific Gravity, Urine >= 1.030 (1.005-1.030); Urobilinogen,Urine 0.2 EU/dl (0.2)
[2022-08-08 02:52] LABS: Coronavirus 19, PCR Not Detected (NotDetected); Influenza A, PCR Not Detected (NotDetected); Influenza B, PCR Not Detected (NotDetected)
[2022-08-08 02:53] LABS: NT Pro Brain Natriuretic Pep. 42.7 pg/mL (0-450)
[2022-08-08 03:00] LABS: Amorphous Sediment,Urine Trace /lpf; WBC,Urine Occasional #/hpf (0-3)
[2022-08-08 03:00] LABS: Troponin I < 0.01 ng/ml (0.00-0.034)
--- NOTE | 2022-08-08 03:38 | HMH.EDHA ---
Discharge Plan Disposition Patient Disposition: Home, Self-Care Chief Complaint: Headache Prescriptions Prescriptions: No Action lisinopril-hydrochlorothiazide 20-12.5 MG tablet 1 tab PO DAILY pravastatin 40 MG tablet 40 mg PO HS glimepiride 4 MG tablet 4 mg PO DAILY gabapentin 300 MG capsule 300 mg PO BID Invokana 300 MG tablet 300 mg PO DAILY metformin 500 MG tablet 1,000 mg PO BID naproxen 500 mg tablet 500 mg PO BID PRN (Reason: Pain) metoprolol succinate [Toprol XL] 50 mg tablet extended release 24 hr 50 mg PO DAILY diclofenac sodium 75 MG tablet,delayed release (DR/EC) 75 mg PO BID Eliquis 5 mg tablet 5 mg PO BID Referrals Follow up/Referrals: Preet Morales MD [Primary Care Provider] - See instructions Clinical Impressions Clinical Impression: Cervical radicular pain, Headache Instructions Patient Instructions: DI for Headache Discharge ED Provider: Joaquín Yusuf Headache HPI General Chief Complaint: Headache Stated Complaint: severe pain in left side head and neck Time Seen by Provider: 08/08/22 03:39 Mode of Arrival: Ambulatory Source of Information: Patient Limitations: No Limitations Description of Symptoms (Recalled from ER Triage Doc. by RN): Pt states that he began having left sided head pain this afternoon. Describes the pain as sharp and severe and states that it radiates down into the left side of his neck. Denies any fall or injury. History of Present Illness HPI Narrative: lt sided neck and headache w/o rash or fever and no trauma Complaint: headache Onset (ago): hour(s) Onset description: gradual Location: left and occipital Severity: moderate Quality: aching Exacerbating factors: none Context: occurred at rest Associated symptoms: none Treatments prior to arrival: none Related Data Home Medications Medication Instructions Recorded Confirmed canagliflozin 300 mg tablet 300 mg PO DAILY Diabetes 02/21/18 08/08/22 (Invokana) gabapentin 300 mg capsule 300 mg PO BID Pain 02/21/18 08/08/22 glimepiride 4 mg tablet 4 mg PO DAILY Diabetes 02/21/18 08/08/22 lisinopril 20 1 tab PO DAILY htn 02/21/18 08/08/22 mg-hydrochlorothiazide 12.5 mg tablet pravastatin 40 mg tablet 40 mg PO HS High cholesterol 02/21/18 08/08/22 metformin 500 mg tablet 1,000 mg PO BID Diabetes 05/06/19 08/08/22 apixaban 5 mg tablet (Eliquis) 5 mg PO BID Blood thinner 06/23/22 08/08/22 diclofenac sodium 75 mg 75 mg PO BID Pain 06/23/22 08/08/22 tablet,delayed release metoprolol succinate 50 mg 50 mg PO DAILY High blood pressure 06/23/22 08/08/22 tablet,extended release 24 hr (Toprol XL) naproxen 500 mg tablet 500 mg PO BID PRN Pain 06/23/22 08/08/22 Allergies Allergy/AdvReac Type Severity Reaction Status Date / Time No Known Allergies Allergy Verified 07/13/22 09:19 [facility] History Hepatitis A Screen Attestation statement:: This patient has been screened for Hepatitis A risk factors. I have reviewed the patient's past medical history: Yes Medical History: Reports: Diabetes Mellitus Type 2, Hyperlipidemia, Hypertension and Lung Disease ([place]); Denies: Cancer, Diabetes Mellitus Type 1, MRSA or Seizures Other Medical History: Reports Arthritis; Denies Blood Transfusion Reaction Comment: [place] uses CPAP Laterality Cases: Left: Carpal Tunnel Release and Other and Right: Arthroscopy Knee Other Surgeries: Yes Appendectomy and Colonoscopy Amputation: No Fractures: No Social History Smoking Status: Current every day smoker Tobacco Type: cigars # Packs/Day (cigarettes): 1 Alcohol Intake: current Alcohol Intake Frequency:: a few times a week Substance Use Type: denies use Occupational Status: employed Housing: house Household Members: other Family Hx:: Unable to obtain [facility] Medical History (Updated 08/08/22 @ 04:50 by Joaquín Yusuf MD) Diabetes Hyperlipidemia Hypertension New onset a-fib [place] (obstructiv
[2022-08-08 05:00] VITALS: BP 130/73; PULSE 89; RESP 18; TEMP 36.6; O2SAT 99
== END 2022-08-08 05:01 | disposition home or self-care (01) ==
PROVIDERS: Emergency Provider Emergency Medicine; PCP Internal Medicine
DX: R51.9 Headache, unspecified (principal); M54.12 Radiculopathy, cervical region; Z79.899 Other long term (current) drug therapy; Z79.84 Long term (current) use of oral hypoglycemic drugs; Z95.818 Presence of other cardiac implants and grafts; E11.9 Type 2 diabetes mellitus without complications; E78.5 Hyperlipidemia, unspecified; I10 Essential (primary) hypertension; G47.33 Obstructive sleep apnea (adult) (pediatric); Z72.0 Tobacco use; M19.90 Unspecified osteoarthritis, unspecified site; I48.91 Unspecified atrial fibrillation
CPT/HCPCS: 70450; 80053; 81001; 83880; 84484; 85025; 93005; 96374; 96375; 99285; C9803; U0003; U0005

== ENCOUNTER → 2022-11-01 11:40 | Outpatient (CLI) | payer MEDICARE, SELFPAY ==
[2022-11-01 12:45] LABS: Basophils # 0.1 K/mm3 (0-0.2); Basophils % 1.6 % (0.1-2.0); Eosinophils # 0.1 K/mm3 (0.0-0.4); Eosinophils % 0.7 % (0.1-12.0); Hematocrit 51.8 % (42.0-52.0); Hemoglobin 16.3 g/dL (14.1-18.0); Lymphocytes % 27.5 % (10-50); Mean Corpuscular HGB Conc 31.5 g/dL (31.8-35.4); Mean Corpuscular Hemoglobin 29.7 pg (27.0-31.2); Mean Corpuscular Volume 94.5 fl (80-94); Mean Platelet Volume 8.2 fl (7.4-10.4); Monocytes # 0.6 K/mm3 (0.1-1.0); Monocytes % 7.8 % (1.7-9.3); Neutrophils # 4.6 K/mm3 (1.8-7.8); Neutrophils % 62.4 % (37.0-80.0); Platelet Count 241 K/mm3 (142-424); Red Blood Count 5.48 M/mm3 (4.60-6.20); Red Cell Distribution Width 14.5 % (11.5-17.5); White Blood Count 7.4 K/mm3 (4.8-10.8)
[2022-11-01 13:29] LABS: Hemoglobin A1C 6.4 % (4.0-6.0)
[2022-11-01 17:35] LABS: Cholesterol 180 mg/dl (140-200); HDL Cholesterol 36 mg/dl (40-60); Triglycerides 145 mg/dl (30-150); VLDL Cholesterol 29 mg/dL (0-40)
[2022-11-01 17:51] LABS: Direct LDL Cholesterol 128.58 mg/dL (100-129)
[2022-11-01 18:06] LABS: Prostate Specific Ag Screen 1.4 ng/ml (0.0-4.0)
[2022-11-01 18:29] LABS: Creatinine,Urine Random 60 mg/dL (Not Estab.); Microalbumin < 6.000 mg/L (0-16.7)
[2022-11-02 09:24] LABS: Chloride 107 mmol/L (98-107); Potassium 4.8 mmoL/L (3.5-5.1); Sodium 143 mmol/L (136-145)
[2022-11-02 09:26] LABS: Blood Urea Nitrogen 23 mg/dl (9-20); Estimated Glomerular Filt Rate 94 ml/min (>60); GFR (African American) 114 ML/MIN (>60)
[2022-11-02 09:27] LABS: Alanine Aminotransferase 21 U/L (12-78); Albumin Level 4.2 g/dl (3.5-5.0); Albumin/Globulin Ratio 1.5 (1.1-1.8); Alkaline Phosphatase 74 U/L (38-126); Anion Gap 11.8 mEq/L (5-15); Aspartate Amino Transferase 26 U/L (17-59); Bilirubin,Total 0.5 mg/dl (0.2-1.3); Calcium 9.4 mg/dl (8.4-10.2); Carbon Dioxide 29 mmol/L (22.0-30.0); Globulin 2.8 g/dL (1.3-3.2); Glucose 187 mg/dl (74-100)
== END ==
PROVIDERS: PCP Internal Medicine; Visit Provider Internal Medicine
DX: E11.42 Type 2 diabetes mellitus with diabetic polyneuropathy (principal); E78.5 Hyperlipidemia, unspecified; N41.0 Acute prostatitis; Z12.5 Encounter for screening for malignant neoplasm of prostate; Z79.84 Long term (current) use of oral hypoglycemic drugs
CPT/HCPCS: 80053; 80061; 82043; 82570; 83036; 85025; G0103

== ENCOUNTER 2022-12-28 12:07 | Day surgery (SDC) | payer MEDICARE, SELFPAY ==
--- NOTE | 2022-12-28 07:13 | IR_ITS ---
APPROVED REPORT Patient Location: Outpatient Bill Checker: TAMIKO [place] RT (R) PROCEDURES 1. Pocket formation for Permanent Pacemaker Placement. 2. Placement of an atrial sensing and pacing coil into the right atrial appendage. 3. Placement of a ventricular sensing and pacing coil in the right ventricular apex. 4. Permanent Pacemaker Placement. 5. Loop device removal. INDICATION Tachy Kevin syndrome Informed consent was obtained prior to the procedure. COMPLICATIONS None Estimated Blood Loss: Less than 10 mls TECHNIQUE 1% Lidocaine with epinephrine used to anesthetized the left anterior aspect of the chest. Scalpel was used to make the initial cutaneous incision while electrocautery was used to dissect down tinto the fascia. The fascia was lifted off the pectoralis muscle and digitally manipulated creating a pocket for the pacemaker. The patient was then placed in Trendelenburg position and the subclavian vein was accessed twice via the Selinger technique, there are two wires in the vein. A 6 Czech sheath was placed under fluoroscopic guidance into the subclavian vein over one of the wires while keeping the other wire in place within the subclavian vein. The dilator was removed from the sheath. Using fluoroscopic guidance, the ventricular lead was placed into the right ventricular apex, screwed and secured into place. Electronic interrogation proved acceptable thresholds and voltage within the lead. Using 3-0 silk, the ventricular lead was then secured into place. Lead was secured to the facia using the 3-0 silk. Following this, the sheath was pealed away. An additional 6 Czech fresh sheath and dilator was placed over the existing wire. Using fluoroscopic guidance, the atrial lead was the placed into the right atrial appendage and screwed and secured in place. Electrical interrogation demonstrated acceptable thresholds and voltage number. The atrial lead was then secured into place using 3-0 silk. 1 gram of Ancef was used to flush the pocket. Following the pacemaker generator being secured to the fascia and in place, Monocryl was used to close the subcutaneous layers while jean marie were used to close the cutaneous layer. A pressure dressing was placed and the patient was transferred to the postop holding area in stable condition for postoperative care. INTERROGATION Generator [id number] Generator Serial number: [id number] Atrial lead model number: Tendril 52cm, Atrial lead serial number: [id number] P-wave: 3.7mV Impedence: 490 ohms Threshold: 0.5V@0.4ms Right Ventricular lead model number: Tendril 58cm, Right Ventricular lead serial number: [id number] R-wave: 9.5mV Impedence: 1025 ohms Threshold: 0.25V@0.4ms Pacing Parameters: Mode: DDDR Base/Max Track:60 ppm / 130 ppm No diaphragmatic stimulation at 10 volts. IMPRESSION 1. Successful pocket formation for Permanent Pacemaker Placement. 2. Successful placement of an atrial sensing and pacing coil into the right atrial appendage. 3. Successful placement of a ventricular sensing and pacing coil in the right ventricular apex. 4. Successful permanent Pacemaker Placement. 5. Successful Loop device removal. PLAN 1. Post op wound care Electronically signed by : Amilcar Escalera MD 12/28/2022 17:26:49
[2022-12-28 12:11] VITALS: BMI 37.5
[2022-12-28 12:57] VITALS: BP 133/75; PULSE 56; RESP 18; TEMP 36.9; O2SAT 97
[2022-12-28 13:02] LABS: Basophils % 0.5 % (0.1-2.0); Eosinophils # 0.1 K/mm3 (0.0-0.4); Eosinophils % 0.9 % (0.1-12.0); Hematocrit 51.9 % (42.0-52.0); Hemoglobin 16.8 g/dL (14.1-18.0); Lymphocytes # 2.8 K/mm3 (0.7-4.5); Lymphocytes % 32.7 % (10-50); Mean Corpuscular HGB Conc 32.3 g/dL (31.8-35.4); Mean Corpuscular Hemoglobin 30.4 pg (27.0-31.2); Mean Corpuscular Volume 93.9 fl (80-94); Mean Platelet Volume 8.3 fl (7.4-10.4); Monocytes # 0.7 K/mm3 (0.1-1.0); Neutrophils % 57.8 % (37.0-80.0); Platelet Count 217 K/mm3 (142-424); Red Blood Count 5.52 M/mm3 (4.60-6.20); Red Cell Distribution Width 14.1 % (11.5-17.5); White Blood Count 8.6 K/mm3 (4.8-10.8)
[2022-12-28 13:03] LABS: Chloride 102 mmol/L (98-107); Potassium 4.3 mmoL/L (3.5-5.1); Sodium 140 mmol/L (136-145)
[2022-12-28 13:06] LABS: Anion Gap 11.3 mEq/L (5-15); Blood Urea Nitrogen 27 mg/dl (9-20); Calcium 9.7 mg/dl (8.4-10.2); Carbon Dioxide 31 mmol/L (22.0-30.0); Creatinine Clearance Estimated 108 mL/min (50-200); Estimated Glomerular Filt Rate 82 ml/min (>60); GFR (African American) 99 ML/MIN (>60); Glucose 115 mg/dl (74-100)
--- NOTE | 2022-12-28 14:50 | EXP.ANES.CKL ---
[facility] Disclaimer: The information contained in this section may have been updated after the patient was seen, as this information can be updated by other users. 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 Family History Other Family history non-contributory Social History Smoking Status: Current every day smoker tobacco type: cigars alcohol intake: current substance use type: denies use current occupational status: employed Travel in the last 8 weeks: None household members: other housing: house current occupational exposures/hazards: No caffeine: Yes [facility] Anesthesia Checklist Patient Identification Patient Identification: Arm Band and Verbal (Name & ) Structural Data Admitted From: Home Planned Operative Procedure/s: Dual chamber pacemaker Consent for Planned Operative Procedure(s) Verified: Yes NPO Status Verified Time NPO: 00:00 Additional verifications Anesthesia Reactions: No Hx Blood Transfusions: No Blood Transfusion Reaction: No Airway Assessment C-Spine Mobility Assessed: Yes TMJ Mobility Assessed: Yes Dentition: Poor Dentition Neurological Assessment Level of Consciousness: Awake Hx Seizures: No Numbness or tingling in extremities: No Anesthesia Plan Anesthesia Risk discussed: Yes Anesthesia Plan: Verified ASA Class: III Anesthesia Type: MAC
--- NOTE | 2022-12-28 15:59 | XR_ITS ---
FINAL REPORT CLINICAL HISTORY: Confirm pacemaker/AID placement COMPARISON: 04/25/2022 FINDINGS: SINGLE-VIEW CHEST The heart size is normal. The mediastinum is normal. New left subclavian pacer is identified. There is mild bibasilar atelectasis. Multiple overlying wires are noted. There is no pneumothorax. IMPRESSION: New left subclavian pacer. Mild bibasilar atelectasis. Reviewed, Interpreted and Dictated by Phi Andrews III, MD Transcribed by Millie Saab Authenticated and [facility]
[2022-12-28 16:00] VITALS: BP 133/52; PULSE 63; PULSE 76; RESP 17; O2SAT 91
[2022-12-28 16:02] VITALS: BP 131/61; PULSE 63; RESP 18; O2SAT 97
[2022-12-28 16:15] VITALS: BP 151/73; PULSE 81; RESP 18; O2SAT 91
[2022-12-28 17:23] VITALS: BP 139/81; PULSE 60; RESP 20; O2SAT 100
== END 2022-12-28 17:26 | disposition home or self-care (01) ==
PROVIDERS: PCP Internal Medicine; Visit Provider Internal Medicine
DX: E11.9 Type 2 diabetes mellitus without complications (principal); E78.5 Hyperlipidemia, unspecified; G47.33 Obstructive sleep apnea (adult) (pediatric); I10 Essential (primary) hypertension; I48.0 Paroxysmal atrial fibrillation; I49.5 Sick sinus syndrome; Z79.84 Long term (current) use of oral hypoglycemic drugs; Z79.01 Long term (current) use of anticoagulants; Z79.899 Other long term (current) drug therapy; F17.210 Nicotine dependence, cigarettes, uncomplicated
CPT/HCPCS: 33208; 71045; 80048; 85025; C1785; C1898

== ENCOUNTER 2023-01-25 22:01 | Emergency (ER) | payer MEDICARE, SELFPAY ==
--- NOTE | 2023-01-25 22:11 | ECG_ITS ---
APPROVED REPORT Exam: Resting ECG HR:73 bpm ECG Measurements Heart Rate 73 AXES QRSd 84 QRS 20 QT 356 T -4 QTc 382 Conclusion ATRIAL FIBRILLATION LOW QRS VOLTAGE IN PRECORDIAL LEADS [QRS DEFLECTION < 1.0 mV IN CHEST LEADS] NONSPECIFIC T-WAVE ABNORMALITY ABNORMAL RHYTHM ECG UNCONFIRMED REPORT Electronically signed by : Beau Saleh MD 01/27/2023 15:03:12
[2023-01-25 22:19] VITALS: BP 106/56; PULSE 72; RESP 16; TEMP 36.6; O2SAT 98; BMI 37.3
--- NOTE | 2023-01-25 22:27 | XR_ITS ---
PROCEDURE INFORMATION: Exam: XR Chest Exam date and time: 01/25/2023 10:30 PM Age: 77 years old Clinical indication: Other: Palpitations; Prior surgery; Surgery date: <1 month; Surgery type: Pacemaker 3 weeks ago TECHNIQUE: Imaging protocol: Radiologic exam of the chest. Views: 2 views. COMPARISON: CR XR CHEST PORTABLE 12/28/2022 4:06 PM FINDINGS: Tubes, catheters and devices: Cardiac pacemaker remains in place. Lungs: Unremarkable. No consolidation. Pleural spaces: Unremarkable. No pleural effusion. No pneumothorax. Heart/Mediastinum: Unremarkable. No cardiomegaly. Bones/joints: Degenerative changes of the spine noted, including prominent anterior osteophyte formation of the midthoracic spine. IMPRESSION: No acute disease
--- NOTE | 2023-01-25 22:32 | HMH.EDARPALP ---
Discharge Plan Disposition Patient Disposition: Home, Self-Care Chief Complaint: Arrhythmia/Palpitations Prescriptions Prescriptions: No Action Eliquis 5 mg tablet 5 mg PO BID Qty: 180 1RF lisinopril-hydrochlorothiazide 20-12.5 MG tablet 1 tab PO DAILY glimepiride 4 MG tablet 4 mg PO DAILY gabapentin 300 MG capsule 300 mg PO BID Invokana 300 MG tablet 300 mg PO DAILY pravastatin 40 mg tablet 80 mg PO HS metoprolol succinate 50 mg tablet extended release 24 hr See Rx Instructions .ROUTE .COMPLEX Rx Instructions: TAKE ONE TABLET BY MOUTH EVERY DAY metformin 500 MG tablet 1,000 mg PO BID naproxen 500 mg tablet 500 mg PO BID PRN (Reason: Pain) Referrals Follow up/Referrals: Preet Morales MD [Primary Care Provider] - See instructions Clinical Impressions Clinical Impression: Palpitations Instructions Patient Instructions: Cardiac Arrhythmia (Alternative Therapy) Discharge ED Provider: Paramjit (ED),Joaquín Evans Arrhythmia/Palpitations HPI General Chief Complaint: Arrhythmia/Palpitations Stated Complaint: Pace maker 3wks, Time Seen by Provider: 01/25/23 22:32 Mode of Arrival: Ambulatory Source of Information: Patient, Significant Other and Medical Record Limitations: No Limitations History of Present Illness HPI narrative: had recent pacemaker and tonight had episode of not feeling right - no chest pain and no loc or syncope Onset (ago): hour(s) Duration: now resolved Severity: moderate Context: other (recent pacemaker) Arrhythmia history: pacemaker Associated symptoms: denies other symptoms Related Data Home Medications Medication Instructions Recorded Confirmed canagliflozin 300 mg tablet 300 mg PO DAILY Diabetes 02/21/18 01/25/23 (Invokana) gabapentin 300 mg capsule 300 mg PO BID Pain 02/21/18 01/25/23 glimepiride 4 mg tablet 4 mg PO DAILY Diabetes 02/21/18 01/25/23 lisinopril 20 1 tab PO DAILY htn 02/21/18 01/25/23 mg-hydrochlorothiazide 12.5 mg tablet metformin 500 mg tablet 1,000 mg PO BID Diabetes 05/06/19 01/25/23 naproxen 500 mg tablet 500 mg PO BID PRN Pain 06/23/22 01/25/23 pravastatin 40 mg tablet 80 mg PO HS High cholesterol 11/28/22 01/25/23 metoprolol succinate 50 mg See Rx Instructions .Route 12/28/22 01/25/23 tablet,extended release 24 hr .COMPLEX . Previous Rx's Medication Instructions Recorded apixaban 5 mg tablet (Eliquis) 5 mg PO BID Blood thinner #180 tabs 10/04/22 Allergies Allergy/AdvReac Type Severity Reaction Status Date / Time No Known Allergies Allergy Verified 01/09/23 08:28 [facility] Disclaimer: The information contained in this section may have been updated after the patient was seen, as this information can be updated by other users. Medical History Bradycardia Cervical radicular pain Diabetes Hyperlipidemia Hypertension Near syncope New onset a-fib [place] (obstructive sleep apnea) PAF (paroxysmal atrial fibrillation) Palpitations Sinus bradycardia Status post placement of implantable loop recorder Tachy-jacinda syndrome Ventricular bigeminy seen on steel rod buster Family History Other Family history non-contributory Social History Smoking Status: Current every day smoker tobacco type: cigars alcohol intake: current substance use type: denies use current occupational status: employed Travel in the last 8 weeks: None household members: other housing: house current occupational exposures/hazards: No caffeine: Yes ROS Obtained: Yes All systems reviewed & no additional complaints except as documented Physical Exam General General appearance: alert and obese Head Head exam: normocephalic Eye Eye exam: Present PERRL and EOMI ENT ENT exam: Present mucous membranes moist Neck Neck exam: Presen
--- NOTE | 2023-01-25 22:39 | PC.NURSE ---
pt to scan
--- NOTE | 2023-01-25 22:43 | PC.NURSE ---
pt back in room
[2023-01-25 22:55] LABS: Basophils # 0.1 K/mm3 (0-0.2); Basophils % 0.5 % (0.1-2.0); Eosinophils # 0.1 K/mm3 (0.0-0.4); Eosinophils % 0.8 % (0.1-12.0); Hematocrit 46.7 % (42.0-52.0); Hemoglobin 15.6 g/dL (14.1-18.0); Lymphocytes # 2.6 K/mm3 (0.7-4.5); Lymphocytes % 30.7 % (10-50); Mean Corpuscular HGB Conc 33.4 g/dL (31.8-35.4); Mean Corpuscular Volume 92.8 fl (80-94); Mean Platelet Volume 8.4 fl (7.4-10.4); Monocytes # 0.8 K/mm3 (0.1-1.0); Monocytes % 9.5 % (1.7-9.3); Neutrophils % 58.5 % (37.0-80.0); Platelet Count 222 K/mm3 (142-424); Red Blood Count 5.03 M/mm3 (4.60-6.20); Red Cell Distribution Width 13.8 % (11.5-17.5); White Blood Count 8.5 K/mm3 (4.8-10.8)
[2023-01-25 23:04] LABS: Chloride 99 mmol/L (98-107); Potassium 3.8 mmoL/L (3.5-5.1); Sodium 140 mmol/L (136-145)
[2023-01-25 23:07] LABS: Alanine Aminotransferase 27 U/L (12-78); Albumin Level 4.1 g/dl (3.5-5.0); Albumin/Globulin Ratio 1.4 (1.1-1.8); Alkaline Phosphatase 63 U/L (38-126); Anion Gap 14.8 mEq/L (5-15); Aspartate Amino Transferase 32 U/L (17-59); Bilirubin,Total 0.3 mg/dl (0.2-1.3); Blood Urea Nitrogen 23 mg/dl (9-20); Carbon Dioxide 30 mmol/L (22.0-30.0); Creatinine Clearance Estimated 108 mL/min (50-200); Estimated Glomerular Filt Rate 82 ml/min (>60); GFR (African American) 99 ML/MIN (>60); Globulin 2.9 g/dL (1.3-3.2); Glucose 111 mg/dl (74-100)
[2023-01-25 23:08] LABS: Calcium 9.6 mg/dl (8.4-10.2)
[2023-01-25 23:17] LABS: NT Pro Brain Natriuretic Pep. 23.2 pg/mL (0-450)
[2023-01-25 23:25] LABS: Troponin I < 0.01 ng/ml (0.00-0.034)
[2023-01-26 01:45] VITALS: BP 110/60; PULSE 70; RESP 18; TEMP 36.6; O2SAT 99
== END 2023-01-26 01:00 | disposition home or self-care (01) ==
PROVIDERS: Emergency Provider Emergency Medicine; PCP Internal Medicine
DX: R00.2 Palpitations (principal); F17.290 Nicotine dependence, other tobacco product, uncomplicated; Z95.0 Presence of cardiac pacemaker
CPT/HCPCS: 71046; 80053; 83880; 84484; 85025; 93005; 99285

== ENCOUNTER → 2023-03-07 14:21 | Outpatient (CLI) | payer MEDICARE, SELFPAY ==
--- NOTE | 2023-03-07 14:29 | ECG_ITS ---
APPROVED REPORT Exam: Resting ECG HR:72 bpm ECG Measurements Heart Rate 72 AXES IL 210 P -3 QRSd 104 QRS 22 QT 372 T 2 QTc 395 Conclusion SINUS RHYTHM WITH FIRST DEGREE AV BLOCK LOW QRS VOLTAGE IN PRECORDIAL LEADS [QRS DEFLECTION < 1.0 mV IN CHEST LEADS]OTHERWISE A NORMAL ECG Electronically signed by : Preet Morales MD 03/07/2023 14:56:13
[2023-03-07 15:14] LABS: Troponin I < 0.01 ng/ml (0.00-0.034)
== END ==
PROVIDERS: PCP Internal Medicine; Visit Provider Internal Medicine
DX: R42 Dizziness and giddiness (principal); I25.10 Atherosclerotic heart disease of native coronary artery without angina pectoris; I95.9 Hypotension, unspecified
CPT/HCPCS: 36415; 84484; 93005

== ENCOUNTER 2023-04-27 14:21 | Emergency (ER) | payer MEDICARE, SELFPAY ==
[2023-04-27] VITALS (11 sets, daily range): BP systolic 113–142; BP diastolic 61–87; PULSE 55–84; RESP 16–19; TEMP 36.5–36.6; O2SAT 93–98; BMI 36.2
--- NOTE | 2023-04-27 14:23 | ECG_ITS ---
APPROVED REPORT Exam: Resting ECG HR:80 bpm ECG Measurements Heart Rate 80 AXES ME 192 P 31 QRSd 90 QRS -6 QT 346 T 28 QTc 382 Conclusion SINUS RHYTHM WITH OCCASIONAL VENTRICULAR PREMATURE COMPLEXES NONSPECIFIC T-WAVE ABNORMALITY BORDERLINE ECG UNCONFIRMED REPORT Electronically signed by : Beau Saleh MD 04/27/2023 21:19:02
--- NOTE | 2023-04-27 14:28 | PC.NURSE ---
FS 203
--- NOTE | 2023-04-27 14:36 | XR_ITS ---
FINAL REPORT TECHNIQUE: Single view chest CLINICAL HISTORY: dyspnea COMPARISON: 01/26/2023 FINDINGS: A single view of the chest was obtained. The heart and mediastinum are within normal limits. A left subclavian pacemaker is in place. The lungs are clear. There is no pneumothorax. Osseous structures are unremarkable. IMPRESSION: No acute cardiopulmonary process. Reviewed, Interpreted and Dictated by Phi Andrews III, MD Transcribed by Cherelle Mcfarlane Authenticated and [facility]
--- NOTE | 2023-04-27 14:38 | HMH.EDGENADL ---
Discharge Plan Disposition Patient Disposition: Home, Self-Care Condition: Good Prescriptions Prescriptions: No Action meclizine 25 mg tablet 25 mg PO DAILY PRN (Reason: dizziness) Qty: 30 0RF Eliquis 5 mg tablet 5 mg PO BID Qty: 180 1RF glimepiride 4 MG tablet 4 mg PO DAILY gabapentin 300 MG capsule 300 mg PO BID Invokana 300 MG tablet 300 mg PO DAILY pravastatin 40 mg tablet 80 mg PO HS metoprolol succinate 50 mg tablet extended release 24 hr See Rx Instructions .ROUTE .COMPLEX Rx Instructions: TAKE ONE TABLET BY MOUTH EVERY DAY metformin 500 MG tablet 1,000 mg PO BID naproxen 500 mg tablet 500 mg PO BID PRN (Reason: Pain) Referrals Follow up/Referrals: Amilcar Escalera MD [Staff Physician] - See instructions Activity Restrictions/Add. Instructions Additional Instructions/Restrictions: At this time it was felt you are safe to be discharged home. If new or worsening symptoms please not hesitate to return the emergency department. Please follow-up with Dr. Escalera's office within 1 week for continued evaluation. Clinical Impressions Clinical Impression: Near syncope Discharge ED Provider: Jimmy Travis General Adult HPI <Melanie Robles MD - Last Filed: 04/27/23 14:42> General Chief complaint: Weakness Stated complaint: SYNCOPE Time Seen by Provider: 04/27/23 14:27 Mode of Arrival: Ambulatory Source of Information: Patient Limitations: No Limitations Description of Symptoms (Recalled from ER Triage Doc. by RN): Presents via POV d/t near syncope episode while playing golf just [employer]. Pt states while on the 18th hole, he leaned over and felt himself toppling . +generalized weakness/dizziness throughout the day. Hx of pacemaker, followed by Dr. Escalera. History of Present Illness HPI narrative: Patient is a 77-year-old male with a history of A-fib and tacky dysrhythmias with an implantable cardiac device, a pacemaker not a defibrillator, followed by Dr. Escalera here today with near syncope. He was playing golf stated he felt a little lightheaded throughout the day at different times try to eat a little bit and drink a Pepsi but did not have significant improvement in his symptoms. He was on the last whole and stated he got lightheaded and almost went down. He states he did not lose consciousness however he was closed. Denies any chest pain or any shortness of breath during any of these episodes. Denies any headache or any pain anywhere else. States he still is feeling a little out of it at the moment but denies any other symptoms currently. States the temperature outside was not very hot today. Related Data Home Medications Medication Instructions Recorded Confirmed canagliflozin 300 mg tablet 300 mg PO DAILY Diabetes 02/21/18 04/11/23 (Invokana) gabapentin 300 mg capsule 300 mg PO BID Pain 02/21/18 04/11/23 glimepiride 4 mg tablet 4 mg PO DAILY Diabetes 02/21/18 04/11/23 metformin 500 mg tablet 1,000 mg PO BID Diabetes 05/06/19 04/11/23 naproxen 500 mg tablet 500 mg PO BID PRN Pain 06/23/22 04/11/23 pravastatin 40 mg tablet 80 mg PO HS High cholesterol 11/28/22 04/11/23 metoprolol succinate 50 mg See Rx Instructions .Route 12/28/22 04/11/23 tablet,extended release 24 hr .COMPLEX . Previous Rx's Medication Instructions Recorded apixaban 5 mg tablet (Eliquis) 5 mg PO BID Blood thinner #180 tabs 04/11/23 meclizine 25 mg tablet 25 mg PO DAILY PRN dizziness #30 04/11/23 tabs Allergies Allergy/AdvReac Type Severity Reaction Status Date / Time No Known Allergies Allergy Verified 04/11/23 09:37 [facility] <Melanie Robles MD - Last Filed: 04/27/23 14:42> [facility] Disclaimer: The information contained in this section may have been updated after the patient was seen, as this information can be updated by other users. Medical History Bradycardia Cervical radicular pain Diabete
--- NOTE | 2023-04-27 14:42 | PC.NURSE ---
XR at bedside.
--- NOTE | 2023-04-27 14:42 | PC.NURSE ---
called cardiology for pacemaker to be interpreted.
[2023-04-27 14:43] LABS: Basophils # 0.1 K/mm3 (0-0.2); Basophils % 0.5 % (0.1-2.0); Eosinophils # 0.1 K/mm3 (0.0-0.4); Hematocrit 50.2 % (42.0-52.0); Lymphocytes # 2.3 K/mm3 (0.7-4.5); Mean Corpuscular HGB Conc 31.8 g/dL (31.8-35.4); Mean Corpuscular Hemoglobin 29.7 pg (27.0-31.2); Mean Corpuscular Volume 93.5 fl (80-94); Mean Platelet Volume 8.2 fl (7.4-10.4); Monocytes # 0.6 K/mm3 (0.1-1.0); Monocytes % 6.4 % (1.7-9.3); Neutrophils # 6.9 K/mm3 (1.8-7.8); Neutrophils % 69.1 % (37.0-80.0); Platelet Count 218 K/mm3 (142-424); Red Blood Count 5.37 M/mm3 (4.60-6.20); Red Cell Distribution Width 13.6 % (11.5-17.5)
[2023-04-27 14:55] LABS: Alanine Aminotransferase 30 U/L (12-78); Albumin Level 4.4 g/dl (3.5-5.0); Albumin/Globulin Ratio 1.4 (1.1-1.8); Alkaline Phosphatase 72 U/L (38-126); Anion Gap 14.6 mEq/L (5-15); Aspartate Amino Transferase 28 U/L (17-59); Bilirubin,Total 0.4 mg/dl (0.2-1.3); Blood Urea Nitrogen 21 mg/dl (9-20); Calcium 10.1 mg/dl (8.4-10.2); Carbon Dioxide 24 mmol/L (22.0-30.0); Chloride 106 mmol/L (98-107); Creatinine Clearance Estimated 105 mL/min (50-200); Estimated Glomerular Filt Rate 94 ml/min (>60); GFR (African American) 114 ML/MIN (>60); Globulin 3.1 g/dL (1.3-3.2); Glucose 190 mg/dl (74-100); Magnesium 1.7 mg/dl (1.6-2.3); Potassium 3.6 mmoL/L (3.5-5.1); Sodium 141 mmol/L (136-145); Total Protein,Serum 7.5 g/dl (6.3-8.2)
[2023-04-27 15:07] LABS: Troponin I < 0.01 ng/ml (0.00-0.034)
--- NOTE | 2023-04-27 15:26 | PC.NURSE ---
called cardiology again for pacemaker to be interpreted
--- NOTE | 2023-04-27 16:37 | PC.NURSE ---
Dr Escalera on with Dr Travis
--- NOTE | 2023-04-27 17:02 | PC.NURSE ---
spoke with Lux to interrogate pacemaker he is coming and will be here within 2 hours , pt is ok with the wait
[2023-04-27 17:36] LABS: Troponin I < 0.01 ng/ml (0.00-0.034)
--- NOTE | 2023-04-27 19:08 | PC.NURSE ---
alexandrea interrogator at the bedside
--- NOTE | 2023-04-27 19:28 | PC.NURSE ---
Dr. Travis at BS
== END 2023-04-27 19:47 | disposition home or self-care (01) ==
PROVIDERS: Student in an Organized Health Care Education/Training Program; Emergency Provider Emergency Medicine; PCP Internal Medicine
DX: R55 Syncope and collapse (principal); R53.1 Weakness; I48.0 Paroxysmal atrial fibrillation; E11.9 Type 2 diabetes mellitus without complications; E78.5 Hyperlipidemia, unspecified; I10 Essential (primary) hypertension; G47.33 Obstructive sleep apnea (adult) (pediatric); Z95.0 Presence of cardiac pacemaker; F17.290 Nicotine dependence, other tobacco product, uncomplicated
CPT/HCPCS: 71045; 80053; 83735; 84484; 85025; 93005; 93041; 99285

== ENCOUNTER → 2023-05-02 12:56 | Outpatient (CLI) | payer MEDICARE, SELFPAY ==
[2023-05-02 16:09] LABS: Basophils % 0.4 % (0.1-2.0); Eosinophils # 0.1 K/mm3 (0.0-0.4); Eosinophils % 0.8 % (0.1-12.0); Hematocrit 55.2 % (42.0-52.0); Hemoglobin 17.2 g/dL (14.1-18.0); Lymphocytes # 1.7 K/mm3 (0.7-4.5); Lymphocytes % 23.6 % (10-50); Mean Corpuscular HGB Conc 31.3 g/dL (31.8-35.4); Mean Corpuscular Hemoglobin 30.3 pg (27.0-31.2); Mean Platelet Volume 9.3 fl (7.4-10.4); Monocytes # 0.6 K/mm3 (0.1-1.0); Monocytes % 7.6 % (1.7-9.3); Neutrophils # 4.9 K/mm3 (1.8-7.8); Neutrophils % 67.6 % (37.0-80.0); Platelet Count 226 K/mm3 (142-424); Red Blood Count 5.69 M/mm3 (4.60-6.20); Red Cell Distribution Width 13.6 % (11.5-17.5); White Blood Count 7.2 K/mm3 (4.8-10.8)
[2023-05-02 16:36] LABS: Alanine Aminotransferase 26 U/L (12-78); Albumin Level 4.4 g/dl (3.5-5.0); Albumin/Globulin Ratio 1.5 (1.1-1.8); Alkaline Phosphatase 79 U/L (38-126); Anion Gap 14.7 mEq/L (5-15); Aspartate Amino Transferase 22 U/L (17-59); Bilirubin,Total 0.4 mg/dl (0.2-1.3); Blood Urea Nitrogen 22 mg/dl (9-20); Calcium 9.8 mg/dl (8.4-10.2); Carbon Dioxide 29 mmol/L (22.0-30.0); Chloride 103 mmol/L (98-107); Chol/HDL Ratio 5.1 (1-3.5); Cholesterol 194 mg/dl (140-200); Estimated Glomerular Filt Rate 110 ml/min (>60); GFR (African American) 133 ML/MIN (>60); Globulin 2.9 g/dL (1.3-3.2); Glucose 177 mg/dl (74-100); HDL Cholesterol 38 mg/dl (40-60); Potassium 4.7 mmoL/L (3.5-5.1); Sodium 142 mmol/L (136-145); Total Protein,Serum 7.3 g/dl (6.3-8.2); Triglycerides 122 mg/dl (30-150); VLDL Cholesterol 24 mg/dL (0-40)
[2023-05-02 16:48] LABS: Direct LDL Cholesterol 124.52 mg/dL (100-129)
[2023-05-02 17:13] LABS: Hemoglobin A1C 7.6 % (4.0-6.0)
== END ==
PROVIDERS: PCP Internal Medicine; Visit Provider Internal Medicine
DX: E11.42 Type 2 diabetes mellitus with diabetic polyneuropathy (principal); I10 Essential (primary) hypertension; I48.0 Paroxysmal atrial fibrillation; E78.5 Hyperlipidemia, unspecified; G47.33 Obstructive sleep apnea (adult) (pediatric); E66.01 Morbid (severe) obesity due to excess calories; Z68.37 Body mass index [BMI] 37.0-37.9, adult; Z79.84 Long term (current) use of oral hypoglycemic drugs
CPT/HCPCS: 80053; 80061; 83036; 85025

== ENCOUNTER 2023-05-09 09:02 | Outpatient (CLI) | payer MEDICARE, SELFPAY ==
[2023-05-09 09:09] VITALS: BMI 37.1
[2023-05-09 09:27] LABS: Hematocrit 48.6 % (42.0-52.0); Hemoglobin 15.9 g/dL (14.1-18.0)
--- NOTE | 2023-05-09 09:49 | PC.NURSE ---
pt Hct today was 48.6 and does not meet the criteria per MD order for phlebotomy. pt scheduled for recheck in 1 week. 05/16/23.
== END 2023-05-09 09:16 | disposition home or self-care (01) ==
LOC: INF 09:02
PROVIDERS: PCP Internal Medicine; Visit Provider Internal Medicine
DX: R79.1 Abnormal coagulation profile (principal)
CPT/HCPCS: 36415; 85014; 85018

== ENCOUNTER 2023-05-16 08:22 | Outpatient (CLI) | payer MEDICARE, SELFPAY ==
[2023-05-16 08:28] VITALS: BMI 36.2
--- NOTE | 2023-05-16 08:37 | PC.NURSE ---
0833 pt presents for labs to be drawn to determine if pt would need phlebotomy. Pt accessed per My Taylor RN using a butterfly access needle to pt's rt ac and appropriate blood drawn for testing. Access site secured with 2x2 gauze and coban.
[2023-05-16 08:46] LABS: Hematocrit 47.9 % (42.0-52.0); Hemoglobin 15.6 g/dL (14.1-18.0)
== END 2023-05-16 09:15 | disposition home or self-care (01) ==
LOC: INF 08:23
PROVIDERS: PCP Internal Medicine; Visit Provider Internal Medicine
DX: R71.8 Other abnormality of red blood cells (principal)
CPT/HCPCS: 36415; 85014; 85018

== ENCOUNTER 2023-06-21 15:00 | Emergency (ER) | payer MEDICARE, SELFPAY ==
[2023-06-21 15:01] VITALS: BP 149/75; PULSE 62; RESP 18; TEMP 36.5; O2SAT 98; BMI 34.8
--- NOTE | 2023-06-21 15:02 | ECG_ITS ---
APPROVED REPORT Exam: Resting ECG HR:63 bpm ECG Measurements Heart Rate 63 AXES HI 223 P 55 QRSd 89 QRS 8 QT 376 T 11 QTc 384 Conclusion ELECTRONIC ATRIAL PACEMAKER ABNORMAL RHYTHM ECG UNCONFIRMED REPORT Electronically signed by : Beau Saleh MD 06/22/2023 07:30:51
--- NOTE | 2023-06-21 15:07 | HMH.EDGENADL ---
Discharge Plan Disposition Patient Disposition: Home, Self-Care Condition: Good Prescriptions Prescriptions: No Action Eliquis 5 mg tablet 5 mg PO BID Qty: 180 1RF meclizine 25 mg tablet 25 mg PO DAILY PRN (Reason: dizziness) Qty: 30 0RF glimepiride 4 MG tablet 4 mg PO DAILY gabapentin 300 MG capsule 300 mg PO BID Invokana 300 MG tablet 300 mg PO DAILY pravastatin 40 mg tablet 80 mg PO HS metoprolol succinate 50 mg tablet extended release 24 hr See Rx Instructions .ROUTE .COMPLEX Rx Instructions: TAKE ONE TABLET BY MOUTH EVERY DAY metformin 500 MG tablet 1,000 mg PO BID naproxen 500 mg tablet 500 mg PO BID PRN (Reason: Pain) Referrals Follow up/Referrals: Preet Morales MD [Primary Care Provider] - See instructions Activity Restrictions/Add. Instructions Additional Instructions/Restrictions: Please return to the emergency department if you experience any new or worsening symptoms. Clinical Impressions Clinical Impression: Pre-syncope Instructions Patient Instructions: DI for Syncope in Adults (Fainting), DI for Syncope in Children (Fainting) Discharge ED Provider: Yna Marinelli Adult HPI General Chief complaint: Syncope Stated complaint: weakness Time Seen by Provider: 06/21/23 15:01 History of Present Illness HPI narrative: The patient presents with a chief complaint of a recent fall and right elbow pain. The patient has a history of a pacemaker implantation and reports that they have been able to return to playing golf without significant issues. The patient experienced a fall yesterday, during which they stumbled and hit their right elbow against a wall or another hard surface. The patient reports that their elbow pain is worse than any other symptoms they are experiencing. The patient also mentions a recent episode of dizziness that occurred just before their arrival at the hospital. They report feeling as though they were going to pass out but were unable to do anything to prevent the fall. The patient denies any chest pain, palpitations, or other cardiac symptoms during or after the episode. They also deny any changes in medications or new medications that could be contributing to their symptoms. The patient has a history of high blood sugar, with a recent reading in the 300s. They are unsure of the name of their [id number] medication for dizziness but believe it may be meclizine. The patient does not regularly check their blood sugar and acknowledges that they may be experiencing dehydration due to elevated blood sugar levels. They report drinking water and orange juice to stay hydrated. 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 Related Data Home Medications Medication Instructions Recorded Confirmed canagliflozin 300 mg tablet 300 mg PO DAILY Diabetes 02/21/18 05/16/23 (Invokana) gabapentin 300 mg capsule 300 mg PO BID Pain 02/21/18 05/16/23 glimepiride 4 mg tablet 4 mg PO DAILY Diabetes 02/21/18 05/16/23 metformin 500 mg tablet 1,000 mg PO BID Diabetes 05/06/19 05/16/23 naproxen 500 mg tablet 500 mg PO BID PRN Pain 06/23/22 05/16/23 pravastatin 40 mg tablet 80 mg PO HS High cholesterol 11/28/22 05/16/23 metoprolol succinate 50 mg See Rx Instructions .Route 12/28/22 05/16/23 tablet,extended release 24 hr .COMPLEX . Previous Rx's Medication Instructions Recorded apixaban 5 mg tablet (Eliquis) 5 mg PO BID Blood thinner #180 tabs 04/11/23 meclizine 25 mg tablet 25 mg PO DAILY PRN dizziness #30 04/28/23 tabs Allergies Allergy/AdvReac Type Severity Reaction Status Date / Time No Known Allergies Allergy Verified 05/16/23 11:01 [facility] Disclaimer: The information contained in this section may have been updated after the patient was seen, as this information can be updated by other users. Medical History [facility]
[2023-06-21 15:16] LABS: POC Glucose,Bedside 355 (70-110)
[2023-06-21 15:30] VITALS: BP 125/99; PULSE 60; RESP 18; O2SAT 99
--- NOTE | 2023-06-21 15:39 | XR_ITS ---
FINAL REPORT CLINICAL HISTORY: Right forearm pain after fall COMPARISON: None FINDINGS: Three views of the right forearm were obtained. There is no acute fracture or dislocation. There is mild degenerative change of the elbow and wrist. There are no soft tissue abnormalities. IMPRESSION: Degenerative change without acute process. Reviewed, Interpreted and Dictated by Phi Andrews III, MD Transcribed by Morena Lopez Authenticated and [facility]
--- NOTE | 2023-06-21 15:39 | XR_ITS ---
FINAL REPORT CLINICAL HISTORY: Right elbow pain after fall COMPARISON: None FINDINGS: 2 views of the right elbow were obtained. There is no acute fracture or dislocation. There is mild degenerative change. The soft tissues are unremarkable. IMPRESSION: No acute fracture. Reviewed, Interpreted and Dictated by Phi Andrews III, MD Transcribed by Morena Lopez Authenticated and . [facility]
[2023-06-21 15:48] LABS: Basophils # 0.1 K/mm3 (0-0.2); Basophils % 0.5 % (0.1-2.0); Eosinophils # 0.1 K/mm3 (0.0-0.4); Eosinophils % 0.8 % (0.1-12.0); Hematocrit 50.9 % (42.0-52.0); Lymphocytes # 2.5 K/mm3 (0.7-4.5); Mean Corpuscular HGB Conc 31.5 g/dL (31.8-35.4); Mean Corpuscular Hemoglobin 29.6 pg (27.0-31.2); Mean Corpuscular Volume 94.2 fl (80-94); Mean Platelet Volume 8.2 fl (7.4-10.4); Monocytes # 0.7 K/mm3 (0.1-1.0); Monocytes % 6.1 % (1.7-9.3); Neutrophils # 7.5 K/mm3 (1.8-7.8); Neutrophils % 69.6 % (37.0-80.0); Platelet Count 253 K/mm3 (142-424); Red Blood Count 5.41 M/mm3 (4.60-6.20); Red Cell Distribution Width 13.3 % (11.5-17.5); White Blood Count 10.8 K/mm3 (4.8-10.8)
[2023-06-21 15:54] LABS: Chloride 104 mmol/L (98-107); Sodium 138 mmol/L (136-145)
[2023-06-21 15:57] LABS: Alanine Aminotransferase 34 U/L (12-78); Albumin Level 3.8 g/dl (3.5-5.0); Albumin/Globulin Ratio 1.5 (1.1-1.8); Alkaline Phosphatase 62 U/L (38-126); Aspartate Amino Transferase 32 U/L (17-59); Bilirubin,Total 0.2 mg/dl (0.2-1.3); Blood Urea Nitrogen 22 mg/dl (9-20); Carbon Dioxide 25 mmol/L (22.0-30.0); Creatinine Clearance Estimated 99 mL/min (50-200); Estimated Glomerular Filt Rate 109 ml/min (>60); GFR (African American) 132 ML/MIN (>60); Globulin 2.6 g/dL (1.3-3.2); Total Protein,Serum 6.4 g/dl (6.3-8.2)
[2023-06-21 15:58] LABS: Calcium 9.5 mg/dl (8.4-10.2); Glucose 356 mg/dl (74-100); Magnesium 1.7 mg/dl (1.6-2.3); Phosphorous 3.5 mg/dl (2.5-4.5)
[2023-06-21 16:10] LABS: Troponin I < 0.01 ng/ml (0.00-0.034)
--- NOTE | 2023-06-21 16:10 | PC.NURSE ---
notified RT of VBG order
[2023-06-21 16:15] LABS: VBG Base Excess -2.9 mmol/L (-2.4-2.3); VBG HCO3 22.7 mmol/L (23-30); VBG Oxygen Saturation 94.4 % (50-70); VBG PCO2 42.2 mmol/L (35-51); VBG PH 7.35 mmol/L (7.31-7.41); VBG PO2 73.5 mmol/L (28-40)
--- NOTE | 2023-06-21 16:24 | PC.NURSE ---
pt resting in bed no needs at this time,visitor at bs
[2023-06-21 18:10] VITALS: BP 139/87; PULSE 60; O2SAT 97
[2023-06-21 18:48] LABS: Troponin I < 0.01 ng/ml (0.00-0.034)
[2023-06-21 19:31] VITALS: BP 135/79; PULSE 62; RESP 20; O2SAT 99
[2023-06-21 19:55] VITALS: BP 135/79; PULSE 79; RESP 20; TEMP 37.2; O2SAT 97
[2023-06-21 20:28] LABS: Troponin I < 0.01 ng/ml (0.00-0.034)
== END 2023-06-21 19:55 | disposition home or self-care (01) ==
PROVIDERS: Emergency Provider Emergency Medicine; PCP Internal Medicine
DX: E86.0 Dehydration (principal); E11.65 Type 2 diabetes mellitus with hyperglycemia; R55 Syncope and collapse; M25.521 Pain in right elbow; I10 Essential (primary) hypertension; E78.5 Hyperlipidemia, unspecified; G47.33 Obstructive sleep apnea (adult) (pediatric); I48.0 Paroxysmal atrial fibrillation; Z95.0 Presence of cardiac pacemaker; Z79.84 Long term (current) use of oral hypoglycemic drugs
CPT/HCPCS: 36415; 73070; 73090; 80053; 82803; 82962; 83735; 84100; 84484; 85025; 93005; 96360; 99284

== ENCOUNTER 2023-11-13 13:26 | Outpatient (CLI) | payer MEDICARE, SELFPAY ==
[2023-11-13 14:55] LABS: Creatinine,Urine Random 77 mg/dL (Not Estab.)
[2023-11-13 15:02] LABS: Microalbumin < 6.000 mg/L (0-16.7)
[2023-11-13 15:30] LABS: Alanine Aminotransferase 18 U/L (12-78); Albumin Level 4.2 g/dl (3.5-5.0); Albumin/Globulin Ratio 1.8 (1.1-1.8); Alkaline Phosphatase 77 U/L (38-126); Anion Gap 8.3 mEq/L (5-15); Aspartate Amino Transferase 25 U/L (17-59); Bilirubin,Total 0.5 mg/dl (0.2-1.3); Blood Urea Nitrogen 18 mg/dl (9-20); Calcium 9.7 mg/dl (8.4-10.2); Carbon Dioxide 31 mmol/L (22.0-30.0); Chloride 104 mmol/L (98-107); Chol/HDL Ratio 4.1 (1-3.5); Cholesterol 153 mg/dl (140-200); Estimated Glomerular Filt Rate 109 ml/min (>60); GFR (African American) 132 ML/MIN (>60); Globulin 2.4 g/dL (1.3-3.2); Glucose 154 mg/dl (74-100); HDL Cholesterol 37 mg/dl (40-60); Potassium 4.3 mmoL/L (3.5-5.1); Sodium 139 mmol/L (136-145); Total Protein,Serum 6.6 g/dl (6.3-8.2); Triglycerides 108 mg/dl (30-150); VLDL Cholesterol 22 mg/dL (0-40)
[2023-11-13 15:42] LABS: Direct LDL Cholesterol 91.33 mg/dL (100-129)
[2023-11-13 16:01] LABS: Prostate Specific Ag Screen 1.7 ng/ml (0.0-4.0)
[2023-11-13 16:26] LABS: Hemoglobin A1C 7.7 % (4.0-6.0)
== END 2023-11-13 23:59 ==
LOC: LAB.DROPOF 13:26
PROVIDERS: PCP Internal Medicine; Visit Provider Internal Medicine
DX: E11.42 Type 2 diabetes mellitus with diabetic polyneuropathy (principal); E11.59 Type 2 diabetes mellitus with other circulatory complications; E78.5 Hyperlipidemia, unspecified; I10 Essential (primary) hypertension; G47.33 Obstructive sleep apnea (adult) (pediatric); Z12.5 Encounter for screening for malignant neoplasm of prostate; Z79.84 Long term (current) use of oral hypoglycemic drugs
CPT/HCPCS: 80053; 80061; 82043; 82570; 83036; G0103

== ENCOUNTER 2024-01-04 14:39 | Emergency (ER) | payer MEDICARE, SELFPAY ==
[2024-01-04] VITALS (7 sets, daily range): BP systolic 106–123; BP diastolic 55–71; PULSE 60–88; RESP 16–22; TEMP 36.7; O2SAT 93–99; BMI 33.5
--- NOTE | 2024-01-04 14:52 | ED_ITS ---
<Statement entered by Melanie Robles MD - 01/04/24 23:07> I was consulted by the SAVANNA, and we discussed the complexity of the problems being addressed. I approved the treatment and management plan for this patient's care in the emergency department, thus performing a substantive portion of the medical decision making. Melanie Robles MD, AMILCAR, FACEP Discharge Plan Disposition Patient Disposition: Home, Self-Care Condition: Good Chief Complaint: Dizziness Prescriptions Prescriptions: No Action rosuvastatin 20 mg tablet 20 mg PO DAILY memantine 5 mg tablet 5 mg PO BID Qty: 60 2RF lisinopril-hydrochlorothiazide 20-12.5 mg tablet PO DAILY meclizine 25 mg tablet 25 mg PO DAILY PRN (Reason: dizziness) Qty: 30 0RF Eliquis 5 mg tablet 5 mg PO BID Qty: 180 1RF gabapentin 300 MG capsule 300 mg PO BID Invokana 300 MG tablet 300 mg PO DAILY metoprolol succinate 50 mg tablet extended release 24 hr See Rx Instructions .ROUTE .COMPLEX Rx Instructions: TAKE ONE TABLET BY MOUTH EVERY DAY metformin 500 MG tablet 1,000 mg PO BID naproxen 500 mg tablet 500 mg PO BID PRN (Reason: Pain) Referrals Follow up/Referrals: Preet Morales MD [Primary Care Provider] - See instructions Activity Restrictions/Add. Instructions Additional Instructions/Restrictions: Please keep your follow-up with your PCP as scheduled. Please call tomorrow and schedule follow-up with cardiology. Return to PCP cardiology or the ER as needed for worsening signs and symptoms. Please keep a blood pressure log especially if you have any further recurrences of your symptoms. Clinical Impressions Clinical Impression: Dizziness Discharge ED Provider: Melanie Robles General Adult HPI <GREGORY Clarke - Last Filed: 01/04/24 16:29> General Chief complaint: Dizziness Stated complaint: dizzy, body aches,weakness Time Seen by Provider: 01/04/24 14:51 History of Present Illness HPI narrative: Patient reports a 24-hour history of dizziness and weakness . Patient reports he was playing golf and almost had a syncopal event yesterday. Patient reports exercise intolerance such as going up and down the stairs. Patient thinks he felt like his pacemaker shocked him although I do not know if he has a pacemaker defibrillator. Patient reports that he feels lousy but is a difficult historian. Patient states he is felt intermittently like this over the past couple of weeks. Currently denies dizziness while supine chest pain fever chills hemoptysis hematochezia melena nausea vomiting diarrhea. Related Data Home Medications Medication Instructions Recorded Confirmed canagliflozin 300 mg tablet 300 mg PO DAILY Diabetes 02/21/18 10/11/23 (Invokana) gabapentin 300 mg capsule 300 mg PO BID Pain 02/21/18 10/11/23 metformin 500 mg tablet 1,000 mg PO BID Diabetes 05/06/19 10/11/23 naproxen 500 mg tablet 500 mg PO BID PRN Pain 06/23/22 10/11/23 metoprolol succinate 50 mg See Rx Instructions .Route 12/28/22 10/11/23 tablet,extended release 24 hr .COMPLEX . lisinopril 20 tab PO DAILY 10/11/23 10/11/23 mg-hydrochlorothiazide 12.5 mg tablet rosuvastatin 20 mg tablet 20 mg PO DAILY 10/11/23 10/11/23 Previous Rx's Medication Instructions Recorded meclizine 25 mg tablet 25 mg PO DAILY PRN dizziness #30 04/28/23 tabs memantine 5 mg tablet 5 mg PO BID #60 tabs 10/11/23 apixaban 5 mg tablet (Eliquis) 5 mg PO BID Blood thinner #180 tabs 10/26/23 Allergies Allergy/AdvReac Type Severity Reaction Status Date / Time No Known Allergies Allergy Verified 10/11/23 08:28 ON LICENSE OF [facility] <GREGORY Clarke - Last Filed: 01/04/24 16:29> ON LICENSE OF [facility] Disclaimer: The information contained in this section may have been updated after the patient was seen, as this information can be updated by other users. 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 Palpitations Bradycardia Cervical radicular pain Status post placement of implantable loop recorder Hyperlipidemia Hypertension Sinus bradycardia PAF (paroxysmal atrial fibrillation) New onset a-fib [place] (obstructive sleep apnea) Diabetes Surgical History (Updated 10/11/23 @ 11:30 by Lucy Jerez) History of permanent cardiac pacemaker placement History of appendectomy Family History (Updated 10/11/23 @ 11:09 by Lucy Jerez) Other Alcoholism Cancer Family history non-contributory Social History Smoking Status: Unknown if ever smoked alcohol intake: current substance use type: denies use current occupational status: employed Travel in the last 8 weeks: None household members: other housing: house current occupational exposures/hazards: No caffeine: Yes <GREGORY Clarke - Last Filed: 01/04/24 16:29> ROS Obtained: Yes Systems reviewed as appropriate & no additional complaints except as documented Physical Exam <GREGORY Clarke - Last Filed: 01/04/24 16:29> General General appearance: alert and in no apparent distress Head Head exam: atraumatic and normal inspection Eye Eye exam: Present normal appearance and PERRL ENT ENT exam: Present normal exam and normal oropharynx Neck Neck exam: Present normal inspection and full ROM Chest Chest inspection: Present normal inspection and symmetric chest wall rise Respiratory Respiratory exam: Present normal lung sounds bilaterally; Absent respiratory distress or accessory muscle use Cardiovascular Cardiovascular exam: Present regular rate, normal rhythm, normal heart sounds, +S1 and +S2 Abdominal Exam Abdominal exam: Present soft and normal bowel sounds; Absent tenderness Extremities Exam Extremities exam: Present normal inspection and full ROM Back Exam Back exam: Present normal inspection and full ROM; Absent tenderness Neurological Exam Neurological exam: Present alert, oriented X3 and CN II-XII intact Psychiatric Psychiatric exam: Present normal affect and normal mood Skin Skin exam: Present warm, dry and normal color Medical Decision Making <GREGORY Clarke - Last Filed: 01/04/24 16:29> Medical Records Medical records reviewed: Yes I reviewed the patient's medical records. Lib[place] Inquiry Pt receiving controlled substance: No Vital Signs: 01/04/24 14:41 01/04/24 14:46 01/04/24 14:47 Temperature 98.0 F Temperature Source Oral Pulse Rate 73 80 Pulse Rate [Orthostatic Lying Left Radial] Pulse Rate [Orthostatic Sitting Left Radial] Pulse Rate [Orthostatic Standing Left Radial] Pulse Rate [Radial] 84 Respiratory Rate 16 17 19 Blood Pressure 106/69 L 123/68 Blood Pressure [Orthostatic Lying Right Arm] Blood Pressure [Orthostatic Sitting Right Arm] Blood Pressure [Orthostatic Standing Right Arm] Blood Pressure [Right Arm] 117/60 Blood Pressure Mean [Right Arm] 79 Blood Pressure Source [Right Arm] Automatic Cuff Blood Pressure Position [Right Arm] Sitting 02 Sat by Pulse Oximetry 97 98 95 Oxygen Delivery Method Room Air Room Air Room Air 01/04/24 14:48 01/04/24 15:04 01/04/24 15:30 Temperature Temperature Source Pulse Rate 78 60 Pulse Rate [Orthostatic Lying Left Radial] 82 Pulse Rate [Orthostatic Sitting Left Radial] 88 Pulse Rate [Orthostatic Standing Left Radial] 87 Pulse Rate [Radial] Respiratory Rate 22 17 Blood Pressure 109/64 L 115/71 Blood Pressure [Orthostatic Lying Right Arm] 106/69 L Blood Pressure [Orthostatic Sitting Right Arm] 123/68 Blood Pressure [Orthostatic Standing Right Arm] 109/64 L Blood Pressure [Right Arm] Blood Pressure Mean [Right Arm] Blood Pressure Source [Right Arm] Blood Pressure Position [Right Arm] 02 Sat by Pulse Oximetry 95 93 L Oxygen Delivery Method Room Air Room Air Lab Data Lab results reviewed: Yes I reviewed the patient's lab results. Lab Results 01/04/24 15:05: WBC 10.8, RBC 5.18, Hgb 16.1, Hct 49.4, MCV 95.4 H, MCH 31.1, MCHC 32.6, RDW 13.8, Plt Count 216, MPV 8.3, Neut % (Auto) 69.2, Lymph % (Auto) 22.6, Davison % (Auto) 6.8, Eos % (Auto) 0.5, Baso % (Auto) 0.8, Neut # (Auto) 7.5, Lymph # (Auto) 2.4, Davison # (Auto) 0.7, Eos # (Auto) 0.1, Baso # (Auto) 0.1, PT 11.4, INR 1.06, D-Dimer 0.35, Sodium 140, Potassium 3.9, Chloride 108 H, Carbon Dioxide 26, Anion Gap 9.9, BUN 23 H, Creatinine 0.80, Estimated Creat Clear 95, Estimated GFR 94, Est GFR ( Amer) 113, Glucose 120 H, Calcium 10.1, Magnesium 1.9, Total Bilirubin 0.6, AST 24, ALT 21, Alkaline Phosphatase 69, Troponin I < 0.01, NT-Pro-B Natriuret Pep 63.8, Total Protein 6.8, Albumin 4.0, Globulin 2.8, Albumin/Globulin Ratio 1.4, TSH 0.71 01/04/24 15:05 01/04/24 15:05 Orders (Tests/Meds): ED MEDICATIONS Generic Name Dose Route Start Last Admin Trade Name Ezra PRN Reason Stop Dose Admin Lactated Ringer's 1,000 mls @ 999 mls/hr 01/04/24 15:04 01/04/24 15:18 Lactated Ringer's 1000 Ml Bag IV 01/04/24 16:04 999 mls/hr .Q1H1M ONE Administration ORDERS Category Date Time Status Chest XR -- portable [XR chest portable] Stat Exams 01/04/24 15:04 Taken BNP [NT Pro Brain Natriuretic Pep.] Stat Lab 01/04/24 15:05 Completed CBC w/Auto Diff [Complete Blood Count Auto Diff] Stat Lab 01/04/24 15:05 Completed CMP [Comprehensive Metabolic Panel] Stat Lab 01/04/24 15:05 Completed D-Dimer Stat Lab 01/04/24 15:05 Completed INR [Prothrombin Time INR] Stat Lab 01/04/24 15:05 Completed Magnesium Stat Lab 01/04/24 15:05 Completed Rapid PCR Covid and Flu A/B Stat Lab 01/04/24 15:20 Received TSH [Thyroid Stimulating Hormone] Stat Lab 01/04/24 15:05 Completed Trop I [Troponin I] Stat Lab 01/04/24 15:05 Completed Troponin I Q3H Lab 01/04/24 18:15 Ordered Troponin I Q3H Lab 01/04/24 21:15 Ordered UA [Urinalysis and Microscopic] Stat Lab 01/04/24 15:05 Ordered HEART Score History (anamnesis): Slightly suspicious ECG: Non-specific disturbance Age: >65 years Risk factors: Atherosclerosis history Troponin: </= normal limit HEART Score: 5 Medical Decision Narrative: In summary patient is a 78-year-old male who presents to the emergency department for evaluation of dizziness and weakness. Patient is hemodynamically stable upon arrival, febrile. Physical exam is unremarkable and nonfocal. Differential diagnosis includes bradycardia, arrhythmia, ACS, acute infection, PE etc. Initial workup will be conducted with hematologic labs plain film chest x-ray twelve-lead EKG interrogation of his implanted device, orthostatics. Initial interventions include fluid bolus. Initial workup reviewed by me shows that his hematologic labs are nonactionable, EKG shows normal sinus rhythm, plain film chest x-ray BMI informal interpretation shows no acute processes and we had his pacemaker interrogated and interpreted by the [facility] that did not show any acute events in the last 48 hours. I had a discussion about patient management with Dr. Escalera of cardiology. Recommendation is to have the patient follow-up in the clinic and call for appointment in the morning.. Upon repeat evaluation has had no recurrence of dizziness or weakness. His blood pressure is currently 108 systolic with a heart rate of 60. I suspect this is possible the underlying etiology as the patient is undergoing demand he may be becoming slightly hypotensive and symptomatic then. Patient has no insight he has not checked his blood pressure when he has had these events.. Given this patient is appropriate for discharge with recommendations to keep a blood pressure log until follow-up with cardiology and his PCP. Return to the ER as needed for any worsening signs or symptoms. Verbalized understanding and agreement. <Melanie Robles MD - Last Filed: 01/04/24 15:30> Vital Signs: 01/04/24 14:41 01/04/24 14:46 01/04/24 14:47 Temperature 98.0 F Temperature Source Oral Pulse Rate 73 80 Pulse Rate [Orthostatic Lying Left Radial] Pulse Rate [Orthostatic Sitting Left Radial] Pulse Rate [Orthostatic Standing Left Radial] Pulse Rate [Radial] 84 Respiratory Rate 16 17 19 Blood Pressure 106/69 L 123/68 Blood Pressure [Orthostatic Lying Right Arm] Blood Pressure [Orthostatic Sitting Right Arm] Blood Pressure [Orthostatic Standing Right Arm] Blood Pressure [Right Arm] 117/60 Blood Pressure Mean [Right Arm] 79 Blood Pressure Source [Right Arm] Automatic Cuff Blood Pressure Position [Right Arm] Sitting 02 Sat by Pulse Oximetry 97 98 95 Oxygen Delivery Method Room Air Room Air Room Air 01/04/24 14:48 01/04/24 15:04 01/04/24 15:30 Temperature Temperature Source Pulse Rate 78 60 Pulse Rate [Orthostatic Lying Left Radial] 82 Pulse Rate [Orthostatic Sitting Left Radial] 88 Pulse Rate [Orthostatic Standing Left Radial] 87 Pulse Rate [Radial] Respiratory Rate 22 17 Blood Pressure 109/64 L 115/71 Blood Pressure [Orthostatic Lying Right Arm] 106/69 L Blood Pressure [Orthostatic Sitting Right Arm] 123/68 Blood Pressure [Orthostatic Standing Right Arm] 109/64 L Blood Pressure [Right Arm] Blood Pressure Mean [Right Arm] Blood Pressure Source [Right Arm] Blood Pressure Position [Right Arm] 02 Sat by Pulse Oximetry 95 93 L Oxygen Delivery Method Room Air Room Air Lab Data Lab Results 01/04/24 15:05: WBC 10.8, RBC 5.18, Hgb 16.1, Hct 49.4, MCV 95.4 H, MCH 31.1, MCHC 32.6, RDW 13.8, Plt Count 216, MPV 8.3, Neut % (Auto) 69.2, Lymph % (Auto) 22.6, Davison % (Auto) 6.8, Eos % (Auto) 0.5, Baso % (Auto) 0.8, Neut # (Auto) 7.5, Lymph # (Auto) 2.4, Davison # (Auto) 0.7, Eos # (Auto) 0.1, Baso # (Auto) 0.1, PT 11.4, INR 1.06, D-Dimer 0.35, Sodium 140, Potassium 3.9, Chloride 108 H, Carbon Dioxide 26, Anion Gap 9.9, BUN 23 H, Creatinine 0.80, Estimated Creat Clear 95, Estimated GFR 94, Est GFR ( Amer) 113, Glucose 120 H, Calcium 10.1, Magnesium 1.9, Total Bilirubin 0.6, AST 24, ALT 21, Alkaline Phosphatase 69, Troponin I < 0.01, NT-Pro-B Natriuret Pep 63.8, Total Protein 6.8, Albumin 4.0, Globulin 2.8, Albumin/Globulin Ratio 1.4, TSH 0.71 Orders (Tests/Meds): ED MEDICATIONS Generic Name Dose Route Start Last Admin Trade Name Freq PRN Reason Stop Dose Admin Lactated Ringer's 1,000 mls @ 999 mls/hr 01/04/24 15:04 01/04/24 15:18 Lactated Ringer's 1000 Ml Bag IV 01/04/24 16:04 999 mls/hr .Q1H1M ONE Administration ORDERS Category Date Time Status Chest XR -- portable [XR chest portable] Stat Exams 01/04/24 15:04 Taken BNP [NT Pro Brain Natriuretic Pep.] Stat Lab 01/04/24 15:05 Completed CBC w/Auto Diff [Complete Blood Count Auto Diff] Stat Lab 01/04/24 15:05 Completed CMP [Comprehensive Metabolic Panel] Stat Lab 01/04/24 15:05 Completed D-Dimer Stat Lab 01/04/24 15:05 Completed INR [Prothrombin Time INR] Stat Lab 01/04/24 15:05 Completed Magnesium Stat Lab 01/04/24 15:05 Completed Rapid PCR Covid and Flu A/B Stat Lab 01/04/24 15:20 Received TSH [Thyroid Stimulating Hormone] Stat Lab 01/04/24 15:05 Completed Trop I [Troponin I] Stat Lab 01/04/24 15:05 Completed Troponin I Q3H Lab 01/04/24 18:15 Ordered Troponin I Q3H Lab 01/04/24 21:15 Ordered UA [Urinalysis and Microscopic] Stat Lab 01/04/24 15:05 Ordered ECG Data Tracing #1: I reviewed this ECG and interpreted as documented below: Ventricular of 66 electronic atrial pacemaker seems to be appropriately paced no acute ischemic changes noted left axis deviation no other significant conduction abnormality Critical Care <GREGORY Clarke - Last Filed: 01/04/24 16:29> Critical Care Time Critical Care Time: No
--- NOTE | 2024-01-04 14:59 | PC.NURSE ---
cardiology notified that pacemaker needs read
--- NOTE | 2024-01-04 15:04 | XR_ITS ---
FINAL REPORT CLINICAL HISTORY: Weakness and dizziness COMPARISON: 04/27/2023 FINDINGS: The heart size is normal. Left-sided pacer is present. The mediastinum is normal. There is no focal infiltrate or edema. There are no pleural effusions. There is no pneumothorax. There is no osseous abnormality. IMPRESSION: No acute cardiopulmonary process Reviewed, Interpreted and Dictated by Gasper Qiu MD Transcribed by Morena Lopez Authenticated and [facility]
[2024-01-04 15:16] LABS: Chloride 108 mmol/L (98-107); Sodium 140 mmol/L (136-145)
[2024-01-04 15:17] LABS: Basophils # 0.1 K/mm3 (0-0.2); Basophils % 0.8 % (0.1-2.0); Eosinophils # 0.1 K/mm3 (0.0-0.4); Eosinophils % 0.5 % (0.1-12.0); Hematocrit 49.4 % (42.0-52.0); Hemoglobin 16.1 g/dL (14.1-18.0); Lymphocytes # 2.4 K/mm3 (0.7-4.5); Lymphocytes % 22.6 % (10-50); Mean Corpuscular HGB Conc 32.6 g/dL (31.8-35.4); Mean Corpuscular Hemoglobin 31.1 pg (27.0-31.2); Mean Corpuscular Volume 95.4 fl (80-94); Mean Platelet Volume 8.3 fl (7.4-10.4); Monocytes # 0.7 K/mm3 (0.1-1.0); Monocytes % 6.8 % (1.7-9.3); Neutrophils # 7.5 K/mm3 (1.8-7.8); Neutrophils % 69.2 % (37.0-80.0); Platelet Count 216 K/mm3 (142-424); Potassium 3.9 mmoL/L (3.5-5.1); Red Blood Count 5.18 M/mm3 (4.60-6.20); Red Cell Distribution Width 13.8 % (11.5-17.5); White Blood Count 10.8 K/mm3 (4.8-10.8)
[2024-01-04] MEDS: LACTATED RINGERS 1000ML 1,000 ML 999 ML IV (15:18)
--- NOTE | 2024-01-04 15:18 | ECG_ITS ---
APPROVED REPORT Exam: Resting ECG HR:65 bpm ECG Measurements Heart Rate 65 AXES OH 221 P 66 QRSd 102 QRS -12 QT 360 T 5 QTc 371 Conclusion ELECTRONIC ATRIAL PACEMAKER INFERIOR MYOCARDIAL INFARCTION , OF INDETERMINATE AGE [40+ ms Q WAVE AND/OR ST/T ABNORMALITY IN II/aVF] ABNORMAL ECG UNCONFIRMED REPORT Electronically signed by : Bo Robles, 01/04/2024 23:14:05
[2024-01-04 15:19] LABS: Alanine Aminotransferase 21 U/L (12-78); Alkaline Phosphatase 69 U/L (38-126); Anion Gap 9.9 mEq/L (5-15); Aspartate Amino Transferase 24 U/L (17-59); Bilirubin,Total 0.6 mg/dl (0.2-1.3); Blood Urea Nitrogen 23 mg/dl (9-20); Carbon Dioxide 26 mmol/L (22.0-30.0); Creatinine Clearance Estimated 95 mL/min (50-200); Estimated Glomerular Filt Rate 94 ml/min (>60); GFR (African American) 113 ML/MIN (>60)
[2024-01-04 15:20] LABS: Albumin/Globulin Ratio 1.4 (1.1-1.8); Calcium 10.1 mg/dl (8.4-10.2); Globulin 2.8 g/dL (1.3-3.2); Glucose 120 mg/dl (74-100); Magnesium 1.9 mg/dl (1.6-2.3); Total Protein,Serum 6.8 g/dl (6.3-8.2)
[2024-01-04 15:23] LABS: INR 1.06 (0.9-1.1); Prothrombin Time 11.4 seconds (10.1-12.5)
[2024-01-04 15:24] LABS: Coronavirus 19, PCR Not Detected (NotDetected); Influenza A, PCR Not Detected (NotDetected)
[2024-01-04 15:25] LABS: Influenza B, PCR Not Detected (NotDetected)
[2024-01-04 15:30] LABS: NT Pro Brain Natriuretic Pep. 63.8 pg/mL (0-450)
[2024-01-04 15:34] LABS: D-Dimer 0.35 ug/mL (0.0-0.5)
[2024-01-04 15:39] LABS: Troponin I < 0.01 ng/ml (0.00-0.034)
[2024-01-04 15:51] LABS: Thyroid Stimulating Hormone 0.71 uIU/mL (0.465-4.68)
== END 2024-01-04 16:36 | disposition home or self-care (01) ==
PROVIDERS: Physician Assistant; Emergency Provider Student in an Organized Health Care Education/Training Program; PCP Internal Medicine
DX: R42 Dizziness and giddiness (principal); R53.81 Other malaise; I48.0 Paroxysmal atrial fibrillation; I10 Essential (primary) hypertension; E78.5 Hyperlipidemia, unspecified; E11.9 Type 2 diabetes mellitus without complications; Z95.0 Presence of cardiac pacemaker; Z79.84 Long term (current) use of oral hypoglycemic drugs
CPT/HCPCS: 71045; 80053; 83735; 83880; 84443; 84484; 85025; 85378; 85610; 87636; 93005; 96360; 99284

== ENCOUNTER 2024-04-09 13:28 | Emergency (ER) | payer MEDICARE, SELFPAY ==
[2024-04-09 13:30] VITALS: BP 120/70; PULSE 63; RESP 19; TEMP 36.6; O2SAT 94; BMI 34.2
--- NOTE | 2024-04-09 13:47 | ECG_ITS ---
APPROVED REPORT Exam: Resting ECG HR:62 bpm ECG Measurements Heart Rate 62 AXES VT 234 P 79 QRSd 91 QRS 8 QT 402 T 32 QTc 408 Conclusion ELECTRONIC ATRIAL PACEMAKER ABNORMAL RHYTHM ECG Electronically signed by : DAJUAN NARANJO, 04/09/2024 16:21:14
--- NOTE | 2024-04-09 13:57 | CT_ITS ---
FINAL REPORT CLINICAL HISTORY: confusion, slurred speech, dizziness FINDINGS: CTA HEAD TECHNIQUE: Thin section axial CT with contrast with 3D MIP reconstruction FINDINGS: No aneurysm is seen. Major intracranial vessels are patent without significant stenosis. . IMPRESSION: Unremarkable This study was performed using automated techniques to achieve radiation exposure as low as reasonably achievable Reviewed, Interpreted and Dictated by Ayana Bolaños MD Transcribed by Kelsey Moon Authenticated and [facility]
--- NOTE | 2024-04-09 13:57 | CT_ITS ---
FINAL REPORT CLINICAL HISTORY: confusion, slurred speech, dizziness COMPARISON: 08/08/2022 FINDINGS: CT NECK ANGIO, WITHOUT AND WITH CONTRAST TECHNIQUE: Thin section axial CT with IV contrast supplemented with 3D MIP reconstruction. NASCET criteria and technique was utilized during interpretation. FINDINGS: Aortic arch: Arch shows no significant narrowing. Great vessel origins are widely patent. Right carotid: No significant stenosis is seen of the cervical common or internal carotid artery. Left carotid: No significant stenosis is seen of the cervical common or internal carotid artery. Vertebrals: The vertebral arteries are codominant. No significant stenosis is present. There is mild scattered bilateral adenopathy. There is an enlarging mass in the left parotid measuring up to 22 mm. 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 ENT consultation is recommended. This study was performed using automated techniques to achieve radiation exposure as low as reasonably Reviewed, Interpreted and Dictated by Ayana Bolaños MD Transcribed by Kelsey Moon Authenticated and [facility]
--- NOTE | 2024-04-09 13:57 | CT_ITS ---
FINAL REPORT TECHNIQUE: Thin section axial CT with contrast with multiplanar reconstruction. This study was performed with techniques to keep radiation doses as low as reasonably achievable (ALARA). Individualized dose reduction techniques using automated exposure control or adjustment of mA and/or kV according to the patient's size were employed. CLINICAL HISTORY: SOA, presyncope FINDINGS: Pulmonary vessels enhance in normal fashion without evidence of embolism. Thoracic aorta shows no dissection or aneurysm. No pulmonary mass or infiltrate is present. There is mild scarring in the lingula. There is no significant pleural effusion. There is no significant pericardial effusion. No mediastinal or hilar adenopathy is present. IMPRESSION: No evidence of pulmonary embolism Reviewed, Interpreted and Dictated by Ayana Bolaños MD Transcribed by Kelsey Moon Authenticated and [facility]
--- NOTE | 2024-04-09 13:57 | CT_ITS ---
FINAL REPORT TECHNIQUE: Axial imaging of the head was obtained without contrast. This study was performed with techniques to keep radiation doses as low as reasonably achievable, (ALARA). Individualized dose reduction techniques using automated exposure control or adjustment of mA and/or kV according to the patient''s size were employed. CLINICAL HISTORY: confusion, slurred speech, dizziness COMPARISON: 08/08/2022 FINDINGS: There is mild generalized atrophy. The ventricles are normal in size. There is no evidence of hemorrhage. No masses are identified. No extra-axial fluid is seen. The sinuses are normal. There is no acute osseous abnormality. IMPRESSION: No acute intracranial abnormality. Mild atrophy. Reviewed, Interpreted and Dictated by Ayana Bolaños MD Transcribed by Kelsey Moon Authenticated and [facility]
[2024-04-09 14:00] VITALS: BP 110/71; PULSE 61; RESP 13; O2SAT 96
--- NOTE | 2024-04-09 14:03 | PC.NURSE ---
pt glucose check was 121
[2024-04-09 14:04] LABS: Lactate Venous 1.6 mmol/L (0.4-2.0); VBG Base Excess -3.5 mmol/L (-2.4-2.3); VBG HCO3 22.2 mmol/L (23-30); VBG PCO2 41.8 mmol/L (35-51); VBG PH 7.34 mmol/L (7.31-7.41); VBG PO2 45.4 mmol/L (28-40); VBG Total CO2 23.5 mmol/L (23-27)
[2024-04-09 14:11] LABS: Basophils # 0.1 K/mm3 (0-0.2); Basophils % 0.7 % (0.1-2.0); Eosinophils # 0.1 K/mm3 (0.0-0.4); Eosinophils % 0.6 % (0.1-12.0); Hematocrit 49.9 % (42.0-52.0); Hemoglobin 16.6 g/dL (14.1-18.0); Lymphocytes # 3.2 K/mm3 (0.7-4.5); Lymphocytes % 33.8 % (10-50); Mean Corpuscular HGB Conc 33.2 g/dL (31.8-35.4); Mean Corpuscular Hemoglobin 31.3 pg (27.0-31.2); Mean Corpuscular Volume 94.2 fl (80-94); Monocytes # 0.8 K/mm3 (0.1-1.0); Monocytes % 8.4 % (1.7-9.3); Neutrophils # 5.3 K/mm3 (1.8-7.8); Neutrophils % 56.5 % (37.0-80.0); Platelet Count 191 K/mm3 (142-424); Red Cell Distribution Width 14.2 % (11.5-17.5); White Blood Count 9.4 K/mm3 (4.8-10.8)
[2024-04-09 14:19] LABS: Alanine Aminotransferase 25 U/L (12-78); Albumin Level 4.1 g/dl (3.5-5.0); Albumin/Globulin Ratio 1.5 (1.1-1.8); Alkaline Phosphatase 68 U/L (38-126); Anion Gap 10.6 mEq/L (5-15); Aspartate Amino Transferase 33 U/L (17-59); Bilirubin,Total 0.7 mg/dl (0.2-1.3); Blood Urea Nitrogen 30 mg/dl (9-20); Calcium 10.4 mg/dl (8.4-10.2); Carbon Dioxide 27 mmol/L (22.0-30.0); Chloride 105 mmol/L (98-107); Creatinine Clearance Estimated 81 mL/min (50-200); Estimated Glomerular Filt Rate 59 ml/min (>60); GFR (African American) 71 ML/MIN (>60); Globulin 2.8 g/dL (1.3-3.2); Glucose 132 mg/dl (74-100); Magnesium 1.6 mg/dl (1.6-2.3); Potassium 3.6 mmoL/L (3.5-5.1); Sodium 139 mmol/L (136-145); Total Protein,Serum 6.9 g/dl (6.3-8.2)
[2024-04-09 14:30] VITALS: BP 116/68; PULSE 62; RESP 13; O2SAT 94
[2024-04-09 14:31] LABS: NT Pro Brain Natriuretic Pep. 51.4 pg/mL (0-450)
[2024-04-09 14:32] LABS: Troponin I < 0.01 ng/ml (0.00-0.034)
--- NOTE | 2024-04-09 14:43 | ED_ITS ---
Discharge Plan Disposition Patient Disposition: Home, Self-Care Condition: Good Prescriptions Prescriptions: No Action rosuvastatin 20 mg tablet 20 mg PO DAILY lisinopril-hydrochlorothiazide 20-12.5 mg tablet PO DAILY memantine 10 mg tablet 10 mg PO BID MDD 20 mg Qty: 60 6RF meclizine 25 mg tablet 25 mg PO DAILY PRN (Reason: dizziness) Qty: 30 0RF Eliquis 5 mg tablet 5 mg PO BID Qty: 180 1RF gabapentin 300 mg capsule 300 mg PO BID Qty: 60 2RF Invokana 300 MG tablet 300 mg PO DAILY metoprolol succinate 50 mg tablet extended release 24 hr See Rx Instructions .ROUTE .COMPLEX Rx Instructions: TAKE ONE TABLET BY MOUTH EVERY DAY metformin 500 MG tablet 1,000 mg PO BID naproxen 500 mg tablet 500 mg PO BID PRN (Reason: Pain) Referrals Follow up/Referrals: Preet Morales MD [Primary Care Provider] - See instructions Yissel Delcid APRN [Nurse Practitioner] - See instructions (parotid mass, 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 Instructions Additional Instructions/Restrictions: You were evaluated in the ER. You are appropriate for discharge at this time. Drink plenty of water and continue taking your home medications as previously prescribed. Avoid alcohol intake until you have been reevaluated. Also avoid any activities that cause or worsen your symptoms. Follow-up with cardiology and neurology as directed for dizziness. Call them as soon as possible for an appointment. Also make an appointment with the ENT for evaluation of the salivary gland mass. Follow-up with your primary care physician for general reevaluation. Return to the ER with new, worsening, or otherwise concerning symptoms. Clinical Impressions Clinical Impression: AMS (altered mental status), Pre-syncope, Slurred speech, Mass of parotid gland Discharge ED Provider: Mireya Rahman General Adult HPI <Mireya Rahman DO - Last Filed: 04/09/24 16:08> General Chief complaint: Fall Stated complaint: dizzy weak Time Seen by Provider: 04/09/24 13:41 Mode of Arrival: Wheelchair Source of Information: Patient Limitations: No Limitations Description of Symptoms (Recalled from ER Triage Doc. by RN): pt presents to ED with c/o fall today, no LOC, no blood thinners noted. pt reports that he becomes dizzy and lightheaded and falls. pt reports symptoms ongoing for the past three weeks. pt reports he has been seen in the ED for this issue previously. pt reports today he was outside playing golf when he got dizzy and had a fall with no injuries. History of Present Illness HPI narrative: This patient is a 78-year-old male with a history of hypertension, hyperlipidemia, diabetes, atrial fibrillation, [place], degenerative disc disease, cardiac pacemaker, vascular dementia presenting to the emergency department for evaluation with concern for lightheadedness and falls. Patient reports symptoms have been going on for the last several weeks but acutely worsened over the last week. He reports that yesterday, he was on the golf course and they were having to walk a lot more than usual because they could not take the cart off of the path. He Becoming very dizzy and lightheaded and felt like he was going to pass out. He notes that today he was playing golf again when the symptoms recurred. He also notes intermittent vision changes that get better with eyedrops. Family notes some slurred speech and confusion has been intermittent over the last several weeks but is a little bit worse today. No fevers or infectious symptoms. No chest pain, shortness of breath, palpitations, abdominal pain, vomiting, changes in bowel movements, or other concerns. He reports compliance with his medications. Related Data Home Medications Medication Instructions Recorded Confirmed canagliflozin 300 mg tablet 300 mg PO DAILY Diabetes 02/21/18 04/02/24 (Invokana) metformin 500 mg tablet 1,000 mg PO BID Diabetes 05/06/19 04/02/24 naproxen 500 mg tablet 500 mg PO BID PRN Pain 06/23/22 04/02/24 metoprolol succinate 50 mg See Rx Instructions .Route 12/28/22 04/02/24 tablet,extended release 24 hr .COMPLEX . lisinopril 20 tab PO DAILY 10/11/23 04/02/24 mg-hydrochlorothiazide 12.5 mg tablet rosuvastatin 20 mg tablet 20 mg PO DAILY 10/11/23 04/02/24 Previous Rx's Medication Instructions Recorded meclizine 25 mg tablet 25 mg PO DAILY PRN dizziness #30 08/11/23 tabs apixaban 5 mg tablet (Eliquis) 5 mg PO BID Blood thinner #180 tabs 10/26/23 memantine 10 mg tablet 10 mg PO BID Memory loss #60 tabs 01/30/24 gabapentin 300 mg capsule 300 mg PO BID Pain #60 caps 02/26/24 Allergies Allergy/AdvReac Type Severity Reaction Status Date / Time No Known Allergies Allergy Verified 04/02/24 08:27 PFS <Mireya Rahman DO - Last Filed: 04/09/24 16:08> [facility] Disclaimer: The information contained in this section may have been updated after the patient was seen, as this information can be updated by other users. 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 Palpitations Bradycardia Cervical radicular pain Status post placement of implantable loop recorder Hyperlipidemia Hypertension Sinus bradycardia PAF (paroxysmal atrial fibrillation) New onset a-fib [place] (obstructive sleep apnea) Diabetes Surgical History History of permanent cardiac pacemaker placement History of appendectomy Family History Other Alcoholism Cancer Family history non-contributory Social History Smoking Status: Current every day smoker tobacco type: cigars alcohol intake: current alcohol intake frequency: a few times a week substance use type: denies use current occupational status: employed Travel in the last 8 weeks: None household members: other housing: house current occupational exposures/hazards: No caffeine: Yes <Mireya Rahman DO - Last Filed: 04/09/24 16:08> ROS Obtained: Yes All systems reviewed & no additional complaints except as documented Physical Exam <Mireya Rahman DO - Last Filed: 04/09/24 16:08> General General appearance: alert, in no apparent distress and obese Head Head exam: atraumatic and normocephalic Eye Eye exam: Present normal appearance, PERRL and EOMI ENT ENT exam: Present normal exam, normal oropharynx, mucous membranes moist and normal external ear exam Neck Neck exam: Present normal inspection, full ROM and trachea midline; Absent tenderness Chest Chest inspection: Present normal inspection and symmetric chest wall rise; Absent tenderness Respiratory Respiratory exam: Present normal lung sounds bilaterally; Absent respiratory distress, wheezes, stridor or accessory muscle use Cardiovascular Cardiovascular exam: Present regular rate and normal rhythm Abdominal Exam Abdominal exam: Present soft; Absent distention, tenderness or guarding Extremities Exam Extremities exam: Present normal inspection, full ROM and normal capillary refill; Absent tenderness or edema Back Exam Back exam: Present normal inspection and full ROM; Absent tenderness Neurological Exam Neurological exam: Present alert, oriented X3, CN II-XII intact, normal gait and other (NIH scale of 1 for dysarthria, which is mild, but otherwise the patient is neurologically intact. ); Absent motor sensory deficit Psychiatric Psychiatric exam: Present normal affect and normal mood Skin Skin exam: Present warm and dry Medical Decision Making <Mireya Rahman, DO - Last Filed: 04/09/24 16:08> Medical Records Medical records reviewed: Yes I reviewed the patient's medical records. Lib[place] Inquiry Pt receiving controlled substance: No Vital Signs: 04/09/24 13:30 04/09/24 14:00 04/09/24 14:30 Temperature 97.8 F Temperature Source Oral Pulse Rate 61 62 Pulse Rate [Left Radial] 63 Respiratory Rate 19 13 13 Blood Pressure 110/71 116/68 Blood Pressure [Right Arm] 120/70 Blood Pressure Mean 74 Blood Pressure Mean [Right Arm] 86 02 Sat by Pulse Oximetry 94 L 96 94 L Oxygen Delivery Method Room Air 04/09/24 15:30 04/09/24 16:00 04/09/24 17:10 Temperature 97.8 F Temperature Source Pulse Rate 67 61 Pulse Rate [Left Radial] Respiratory Rate 14 13 14 Blood Pressure 141/88 H 142/81 H 118/80 Blood Pressure [Right Arm] Blood Pressure Mean 101 Blood Pressure Mean [Right Arm] 02 Sat by Pulse Oximetry 94 L Oxygen Delivery Method Room Air Lab Data Lab results reviewed: Yes I reviewed the patient's lab results. Lab Results 04/09/24 13:47: WBC 9.4, RBC 5.30, Hgb 16.6, Hct 49.9, MCV 94.2 H, MCH 31.3 H, MCHC 33.2, RDW 14.2, Plt Count 191, MPV 8.0, Neut % (Auto) 56.5, Lymph % (Auto) 33.8, [place] % (Auto) 8.4, Eos % (Auto) 0.6, Baso % (Auto) 0.7, Neut # (Auto) 5.3, Lymph # (Auto) 3.2, [place] # (Auto) 0.8, Eos # (Auto) 0.1, Baso # (Auto) 0.1, PT 11.4, INR 1.02, APTT 30.7 H, Sodium 139, Potassium 3.6, Chloride 105, Carbon Dioxide 27, Anion Gap 10.6, BUN 30 H, Creatinine 1.20, Estimated Creat Clear 81, Estimated GFR 59, Est GFR ( Amer) 71, Glucose 132 H, Calcium 10.4 H, Magnesium 1.6, Total Bilirubin 0.7, AST 33, ALT 25, Alkaline Phosphatase 68, Troponin I < 0.01, NT-Pro-B Natriuret Pep 51.4, Total Protein 6.9, Albumin 4.1, Globulin 2.8, Albumin/Globulin Ratio 1.5, TSH 0.89, Thyroxine (T4) 7.0, Plasma/Serum Alcohol < 10 04/09/24 13:57: VBG pH 7.34, VBG pCO2 41.8, VBG pO2 45.4 H, VBG HCO3 22.2 L, VBG Total CO2 23.5, VBG O2 Saturation 81.0 H, VBG Base Excess -3.5 L, VBG Lactic Acid 1.6 04/09/24 16:14: Urine Opiates Screen Negative, Urine Methadone Screen Negative, Ur Barbituates Screen Negative, Ur Phencyclidine Scrn Negative, Ur Amphetamines Screen Negative, U Benzodiazepines Scrn Negative, Urine Cocaine Screen Negative, U Marijuana (THC) Screen Negative 04/09/24 13:47 04/09/24 13:47 Orders (Tests/Meds): ED MEDICATIONS Discontinued Medications Generic Name Dose Route Start Last Admin Trade Name Freq PRN Reason Stop Dose Admin Iopamidol 150 ml 04/09/24 14:51 04/09/24 14:53 Iopamidol-370 (76%);100ml Bottle IV 04/09/24 14:52 150 ml ONCE ONE Administration Sodium Chloride 10 ml 04/09/24 14:51 04/09/24 14:53 Sodium Chloride 0.9% 10ml Syr (Rad Only) IV 04/09/24 14:52 10 ml ONCE ONE Administration Sodium Chloride 100 ml 04/09/24 14:51 04/09/24 14:53 0.9 % Sodium Chloride 50 Ml Vial IV 04/09/24 14:52 100 ml ONCE ONE Administration ORDERS Category Date Time Status CT angio chest PE protocol Stat Cat Scan 04/09/24 13:[address] angio head Stat Cat Scan 04/09/24 13:[address] angio neck Stat Cat Scan 04/09/24 13:[address] head/brain wo con Stat Cat Scan 04/09/24 13:57 Completed BNP [NT Pro Brain Natriuretic Pep.] Stat Lab 04/09/24 13:47 Completed CBC w/Auto Diff [Complete Blood Count Auto Diff] Stat Lab 04/09/24 13:47 Completed CMP [Comprehensive Metabolic Panel] Stat Lab 04/09/24 13:47 Completed Ethanol [Ethyl Alcohol] Stat Lab 04/09/24 13:47 Completed MAG [Magnesium] Stat Lab 04/09/24 13:47 Completed PT INR [Prothrombin Time INR] Stat Lab 04/09/24 13:47 Completed PTT [Activated Partial Thrombo Time] Stat Lab 04/09/24 13:47 Completed T4 (Thyroxine) Stat Lab 04/09/24 13:47 Completed TSH [Thyroid Stimulating Hormone] Stat Lab 04/09/24 13:47 Completed Trop I [Troponin I] Stat Lab 04/09/24 13:47 Completed Troponin I Q3H Lab 04/09/24 20:00 Ordered UDS [Drug Screen,Urine] Stat Lab 04/09/24 16:14 Completed VBG [Venous Blood Gas] Stat RT 04/09/24 13:57 Completed ECG Data Tracing #1: I reviewed this ECG and interpreted as documented below: Ventricularly paced at [address] changes concerning for ischemia. ECG initial impression date: 04/09/24 ECG initial impression time: 13:48 Medical Decision Narrative: In summary, this patient is a 78-year-old male presenting to the Emergency Department for evaluation of intermittent lightheadedness, presyncope, confusion, speech difficulty. They seem to be worsening with exertion on the golf course. Differential diagnoses considered include but are not limited to CVA, intracranial hemorrhage, intracranial mass, dehydration, electrolyte arrangement, ANSLEY, urinary tract infection, worsening symptoms of vascular dementia. Ruling out the most morbid conditions drove assessment. It should be noted patient's history includes [place], atrial relation, vascular dementia, hypertension, hyperlipidemia, obesity, and type 2 diabetes which may or may not be at goal therapy. This complicates all aspects of care by increasing patient's risk for morbidity. I reviewed patient's past medical records and noted previous evaluations for similar issues in the past both here and by neurology. On exam, the patient is alert and oriented. He does have some dysarthria, but otherwise he has normal speech. He has no neurologic deficits aside from the mild dysarthria. Vitals are reassuring on cardiac telemetry, and EKG is reassuring. Workup included CBC, CMP, TSH, T4, magnesium, VBG, troponin, PT, PTT, ethanol level, urinalysis, urine drug screen, CT head without contrast, CTA head and neck, and CTA PE protocol given his presyncope. Initial labs do not demonstrate any acutely concerning abnormalities. Urinalysis pending. Patient care signed out to the oncoming provider, Dr. Mercado, pending CT's and disposition. <Watson Mercado MD - Last Filed: 04/09/24 17:14> Vital Signs: 04/09/24 13:30 04/09/24 14:00 04/09/24 14:30 Temperature 97.8 F Temperature Source Oral Pulse Rate 61 62 Pulse Rate [Left Radial] 63 Respiratory Rate 19 13 13 Blood Pressure 110/71 116/68 Blood Pressure [Right Arm] 120/70 Blood Pressure Mean 74 Blood Pressure Mean [Right Arm] 86 02 Sat by Pulse Oximetry 94 L 96 94 L Oxygen Delivery Method Room Air 04/09/24 15:30 04/09/24 16:00 04/09/24 17:10 Temperature 97.8 F Temperature Source Pulse Rate 67 61 Pulse Rate [Left Radial] Respiratory Rate 14 13 14 Blood Pressure 141/88 H 142/81 H 118/80 Blood Pressure [Right Arm] Blood Pressure Mean 101 Blood Pressure Mean [Right Arm] 02 Sat by Pulse Oximetry 94 L Oxygen Delivery Method Room Air Lab Data Lab Results 04/09/24 13:47: WBC 9.4, RBC 5.30, Hgb 16.6, Hct 49.9, MCV 94.2 H, MCH 31.3 H, MCHC 33.2, RDW 14.2, Plt Count 191, MPV 8.0, Neut % (Auto) 56.5, Lymph % (Auto) 33.8, [place] % (Auto) 8.4, Eos % (Auto) 0.6, Baso % (Auto) 0.7, Neut # (Auto) 5.3, Lymph # (Auto) 3.2, [place] # (Auto) 0.8, Eos # (Auto) 0.1, Baso # (Auto) 0.1, PT 11.4, INR 1.02, APTT 30.7 H, Sodium 139, Potassium 3.6, Chloride 105, Carbon Dioxide 27, Anion Gap 10.6, BUN 30 H, Creatinine 1.20, Estimated Creat Clear 81, Estimated GFR 59, Est GFR ( Amer) 71, Glucose 132 H, Calcium 10.4 H, Magnesium 1.6, Total Bilirubin 0.7, AST 33, ALT 25, Alkaline Phosphatase 68, Troponin I < 0.01, NT-Pro-B Natriuret Pep 51.4, Total Protein 6.9, Albumin 4.1, Globulin 2.8, Albumin/Globulin Ratio 1.5, TSH 0.89, Thyroxine (T4) 7.0, Plasma/Serum Alcohol < 10 04/09/24 13:57: VBG pH 7.34, VBG pCO2 41.8, VBG pO2 45.4 H, VBG HCO3 22.2 L, VBG Total CO2 23.5, VBG O2 Saturation 81.0 H, VBG Base Excess -3.5 L, VBG Lactic Acid 1.6 04/09/24 16:14: Urine Opiates Screen Negative, Urine Methadone Screen Negative, Ur Barbituates Screen Negative, Ur Phencyclidine Scrn Negative, Ur Amphetamines Screen Negative, U Benzodiazepines Scrn Negative, Urine Cocaine Screen Negative, U Marijuana (THC) Screen Negative Orders (Tests/Meds): ED MEDICATIONS Discontinued Medications Generic Name Dose Route Start Last Admin Trade Name Arnolq PRN Reason Stop Dose Admin Iopamidol 150 ml 04/09/24 14:51 04/09/24 14:53 Iopamidol-370 (76%);100ml Bottle IV 04/09/24 14:52 150 ml ONCE ONE Administration Sodium Chloride 10 ml 04/09/24 14:51 04/09/24 14:53 Sodium Chloride 0.9% 10ml Syr (Rad Only) IV 04/09/24 14:52 10 ml ONCE ONE Administration Sodium Chloride 100 ml 04/09/24 14:51 04/09/24 14:53 0.9 % Sodium Chloride 50 Ml Vial IV 04/09/24 14:52 100 ml ONCE ONE Administration ORDERS Category Date Time Status CT angio chest PE protocol Stat Cat Scan 04/09/24 13:[address] angio head Stat Cat Scan 04/09/24 13:[address] angio neck Stat Cat Scan 04/09/24 13:[address] head/brain wo con Stat Cat Scan 04/09/24 13:57 Completed BNP [NT Pro Brain Natriuretic Pep.] Stat Lab 04/09/24 13:47 Completed CBC w/Auto Diff [Complete Blood Count Auto Diff] Stat Lab 04/09/24 13:47 Completed CMP [Comprehensive Metabolic Panel] Stat Lab 04/09/24 13:47 Completed Ethanol [Ethyl Alcohol] Stat Lab 04/09/24 13:47 Completed MAG [Magnesium] Stat Lab 04/09/24 13:47 Completed PT INR [Prothrombin Time INR] Stat Lab 04/09/24 13:47 Completed PTT [Activated Partial Thrombo Time] Stat Lab 04/09/24 13:47 Completed T4 (Thyroxine) Stat Lab 04/09/24 13:47 Completed TSH [Thyroid Stimulating Hormone] Stat Lab 04/09/24 13:47 Completed Trop I [Troponin I] Stat Lab 04/09/24 13:47 Completed Troponin I Q3H Lab 04/09/24 20:00 Ordered UDS [Drug Screen,Urine] Stat Lab 04/09/24 16:14 Completed VBG [Venous Blood Gas] Stat RT 04/09/24 13:57 Completed Medical Decision Narrative: In summary, this patient is a 78-year-old male presenting to the Emergency Department for evaluation of intermittent lightheadedness, presyncope, confusion, speech difficulty. They seem to be worsening with exertion on the golf course. Differential diagnoses considered include but are not limited to CVA, intracranial hemorrhage, intracranial mass, dehydration, electrolyte arrangement, [place], urinary tract infection, worsening symptoms of vascular dementia. Ruling out the most morbid conditions drove assessment. It should be noted patient's history includes [place], atrial relation, vascular dementia, hypertension, hyperlipidemia, obesity, and type 2 diabetes which may or may not be at goal therapy. This complicates all aspects of care by increasing patient's risk for morbidity. I reviewed patient's past medical records and noted previous evaluations for similar issues in the past both here and by neurology. On exam, the patient is alert and oriented. He does have some dysarthria, but otherwise he has normal speech. He has no neurologic deficits aside from the mild dysarthria. Vitals are reassuring on cardiac telemetry, and EKG is reassuring. Workup included CBC, CMP, TSH, T4, magnesium, VBG, troponin, PT, PTT, ethanol level, urinalysis, urine drug screen, CT head without contrast, CTA head and neck, and CTA PE protocol given his presyncope. Initial labs do not demonstrate any acutely concerning abnormalities. Urinalysis pending. Patient care signed out to the oncoming provider, Dr. Mercado, pending CT's and disposition. Mercado: Upon my assumption of care patient is stable and resting comfortably. GCS 15, no new or worsening deficits. CTs were personally interpreted, I do not appreciate acute findings of hemorrhagic or ischemic stroke. 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 I reviewed previous records, this mass was previously 17 mm in 2021, it appears to be slowly growing. I discussed this finding with patient and daughter at bedside. They state he has never had follow-up for this. I am referring him to ENT for outpatient management. Patient has ambulated and tolerated oral intake in the ER. He is feeling fine and is appropriate for discharge. I have placed a referral back to neurology and cardiology with whom he has previously followed. I encouraged him to follow-up with him soon as possible as well as with ENT for reevaluation of parotid mass. UDS negative for all analytes. Patient is appropriate for discharge. Patient and daughter were given instructions on symptomatic management, follow up instructions, and return precautions for the emergency department. Patient indicated understanding and was discharged in stable condition. Critical Care <Mireya Rahman, DO - Last Filed: 04/09/24 16:08> Critical Care Time Critical Care Time: No
[2024-04-09 14:49] LABS: Thyroid Stimulating Hormone 0.89 uIU/mL (0.465-4.68)
[2024-04-09] MEDS: IOPAMIDOL-370 (76%);100ML BOTTLE 150 ML IV (14:53)
[2024-04-09] MEDS: 0.9 % SODIUM CHLORIDE 50 ML VIAL 100 ML IV (14:53)
[2024-04-09] MEDS: SODIUM CHLORIDE 0.9% 10ML SYR (RAD ONLY) 10 ML IV (14:53)
[2024-04-09 15:22] LABS: Activated Partial Thrombo Time 30.7 seconds (22.8-30.6); INR 1.02 (0.9-1.1); Prothrombin Time 11.4 seconds (10.1-12.5)
[2024-04-09 15:30] VITALS: BP 141/88; RESP 14
[2024-04-09 15:45] LABS: Ethyl Alcohol < 10 mg/dl (0-10)
[2024-04-09 16:00] VITALS: BP 142/81; PULSE 67; RESP 13; O2SAT 94
[2024-04-09 16:39] LABS: Amphetamine/Metha Screen,Urine Negative ng/ml (<1000); Barbiturates Screen,Urine Negative ng/ml (<200)
[2024-04-09 16:40] LABS: Benzodiazepines Screen,Urine Negative ng/ml (<200)
[2024-04-09 16:41] LABS: Cannabinoid Screen,Urine Negative ng/ml (<50)
[2024-04-09 16:42] LABS: Phencyclidine Screen,Urine Negative ng/ml (<25)
[2024-04-09 16:43] LABS: Opiate Screen,Urine Negative ng/ml (<300)
[2024-04-09 16:56] LABS: Cocaine Screen,Urine Negative ng/ml (<300); Methadone Screen,Urine Negative ng/ml (<300)
[2024-04-09 17:10] VITALS: BP 118/80; PULSE 61; RESP 14; TEMP 36.6; O2SAT 95
== END 2024-04-09 17:12 | disposition home or self-care (01) ==
PROVIDERS: Emergency Provider Emergency Medicine; PCP Internal Medicine
DX: R55 Syncope and collapse (principal); R41.82 Altered mental status, unspecified; R47.81 Slurred speech; K11.8 Other diseases of salivary glands; R42 Dizziness and giddiness; F17.210 Nicotine dependence, cigarettes, uncomplicated; E11.9 Type 2 diabetes mellitus without complications; I48.0 Paroxysmal atrial fibrillation; I10 Essential (primary) hypertension; E78.5 Hyperlipidemia, unspecified; Z95.0 Presence of cardiac pacemaker
CPT/HCPCS: 70450; 70496; 70498; 71275; 80050; 80053; 80307; 80320; 82803; 83735; 83880; 84436; 84443; 84484; 85025; 85610; 85730; 93005; 99285; G0480; Q9967

== ENCOUNTER 2024-05-03 06:12 | Outpatient (CLI) | payer MEDICARE, SELFPAY ==
--- NOTE | 2024-05-03 | CA_ITS ---
APPROVED REPORT Exam: Pharmacologic Technologist: Linda Rocha, Ht: 5 ft 11 in Wt: 257 lbs BSA: 2.35 m2 HR: 61 bpm BP: 160/79 mmHg Rhythm: artial paced or sinus rhythm, periods of afib, otherwise normal Indications: Dizziness, Near syncope Medical History Medications: Metoprolol,,,,, Metformin,,,,, Gabapentin,,,,, Naproxen,,,,, Meclizine,,,,, ElIQUIS,,,,, MeMANTINE,,,,, RoSUVASTATIN,,,,, Lisinopril HCTZ,,,,, Iinvokana,,,,, Cardiac Risk Factors: HTN, Hyperlipidemia, Diabetes (non-insulin), Smoking Stress Test Details Test: LEXISCAN HR Resting HR: 66 bpm Max Heart Rate (APMHR): 143 bpm Max HR Achieved: 88 bpm Target HR (85% APMHR): 122 bpm % of APMHR: 62 Recovery HR: 73 bpm BP Resting BP: 160/79 mmHg Max BP: 160/79 mmHg Recovery BP: 128.0/75.0 mmHg ECG Resting ECG: Afib, no ST changes Stress ECG: No significant ST changes Arrhythmia: None Clinical Exercise duration: 04:00 min Highest Stage Achieved: Exercise capacity: 1.0 METs Stress ECG Conclusion During lexiscan pt experinced mild head discomfort and SOA. No CP noted. Ectopy: Atrial fibrillation at baseline. PVCs present. ST changes: No significant ST changes. Unremarkable lexiscan stress. Myoview images reported separately. Test Summary REST . . . . . . . Sitting REST 04:37 . . 66 . 160/ 79 . . Stage 1 01:00 . . 77 . . . . Stage 2 01:00 . . 72 . . . . Stage 3 01:00 . . 74 . 131/ 66 . . Stage 4 01:00 . . 74 . 122/ 65 . Stop exercise at 04:00 RECOVERY 01:00 . . 81 . . . . RECOVERY 02:00 . . 59 . 128/ 75 . . RECOVERY 03:00 . . 74 . 129/ 81 . . RECOVERY 03:23 . . 73 . 129/ 81 . . Electronically signed by : Nadiya Tran MD 05/05/2024 13:56:48
--- NOTE | 2024-05-03 06:17 | NM_ITS ---
APPROVED REPORT Exam: Nuclear Stress Test Indication: hypertension, diabetes, tob use, dizziness Patient Location: Outpatient Stress Tech: Linda DEVI Tech:Janice Singh FILIPPOReza RT (R)(N)(M) Ht: 5 ft 11 in Wt: 250 lbs HR: 66 bpm BP: 160/79 mmHg BSA: 2.32 m2 TID: 1.26 BMI: 34.8 History: hypertension, diabetes, tobacco use, dizziness Procedure: Patient received 0.4 mg of intravenous Lexiscan, resting heart rate 66 bpm, resting blood pressure 160/79 mmHg, with Lexiscan maximum heart rate achieved was 88 bpm which is % of the maximum predicted heart rate and blood pressure was 131/66 mmHg. With Lexiscan, patient denied any complaint of chest pain. Cardiac Stress and Resting SPECT Images: Cardiac Stress and Resting SPECT images were obtained using technetium 99m Myoview 31.1 mCi stress and 10.86 mCi at rest. Resting and stress imaging in supine positions demonstrate a large-sized, moderate, fixed perfusion defect in the inferior and inferolateral LV sorenson. This is no longer visualied with prone stress imaging. Findings are suggestive of diaphragmatic attenuation. There is increase in transient ischemic dilatation ratio (TID 1.26), suggestive of possible multivessel disease or balanced ischemia. Gated imaging demonstrates normal global and regional LV systolic function. LVEF is calculated at 63% Conclusion: Technically difficult study due to significant diaphragmatic attenuation. No fixed or reversible perfusion defects. Increase in transient ischemic dilatation ratio (TID 1.26), suggestive of possible multivessel disease or balanced ischemia. Gated imaging demonstrates normal global and regional LV systolic function. LVEF is calculated at 63%. If clinically feasible, further evaluation non-invasively with CCTA prior to proceeding with invasive coronary angiography to rule out multivessel disease is suggested. Electronically signed by : Nadiya Tran MD 05/05/2024 14:02:01
[2024-05-03] MEDS: SODIUM CHLORIDE 0.9% 10ML SYR (RAD ONLY) 10 ML IV ×2 (07:30→08:00)
[2024-05-03] MEDS: REGADENOSON 0.4MG/5ML SYRINGE 0.4 MG IV (08:00)
[2024-05-03] MEDS: ISOTOPE MYOVIEW (PER STUDY) 1 DOSE IV (09:21)
== END 2024-05-03 23:59 | disposition home or self-care (01) ==
LOC: RAD 06:13
PROVIDERS: PCP Internal Medicine; Visit Provider Nurse Practitioner
DX: R94.31 Abnormal electrocardiogram [ECG] [EKG] (principal); K11.8 Other diseases of salivary glands; R55 Syncope and collapse; E11.69 Type 2 diabetes mellitus with other specified complication; E78.5 Hyperlipidemia, unspecified; R42 Dizziness and giddiness; I48.0 Paroxysmal atrial fibrillation; I10 Essential (primary) hypertension; G47.33 Obstructive sleep apnea (adult) (pediatric)
CPT/HCPCS: 78452; 93017; 93018; A9502; J2785

== ENCOUNTER 2024-05-08 10:24 | Outpatient (CLI) | payer MEDICARE, SELFPAY ==
--- NOTE | 2024-05-08 10:24 | CA_ITS ---
APPROVED REPORT EXAM: Comprehensive 2D, Doppler, and color-flow Echocardiogram Family Life Counselor: EMILY Hinkle, RVS Ht: 5 ft 11 in Wt: 257lbs BSA: 2.35 BP: 140/83 mmHg Indications: Near syncope, Afib, Pacer, Dizziness, DM, HLD, HTN, Smoker Echo Enhancing Agent Comments: TDS poor acoustic windows throughout exam 2D Dimensions IVSd 0.48 cm LVEF (Visual) 1.10 % PWd 0.57 cm LA Volume 54.00 mL LVDd 2.73 cm LA Volume Index [id number] mL/m2 (M/F) 16-34 LVDs 2.72 cm EF AP4 57.60 % Aortic Root 3.24 cm GL Strain -21.5 % Left Atrium 3.45 cm RVID Base (AP4) 3.68 cm (M/F) 2.5-4.1 LVOT 2.10 cm (M/F) 1.5-2.5 M-Mode Dimensions LVDd 2.73 cm (3.5-5.7) Ao Diam 3.58 cm (2.0-3.7) LVDs 2.72 cm (3.5-5.7) IVSd 0.48 cm (0.6-1.1) PWd 0.57 cm (0.6-1.1) EPSs 0.53 cm FS 0.40% TAPSE 2.22 (<1.7) LV Diastology E Decel Time 356 (160-240 msec) E/A Ratio 0.87 MED E' 8.5 (>= 7 cm/sec) MED A' 10.40 cm/s E'/MED E' Ratio 8.18 (<= 14) LAT E' 6.1 (>= 10 cm/sec) LAT A' 10.90 cm/s E/LAT E' Ratio 11.39 (<= 14) Aortic Valve LVOT Max 103.0 (70-110 cm/s) YELENA Index 1.31 cm2/m2 LVOT VTI 26.24 cm AoV Peak Phillip. 153.0 (50-130 cm/s) AO Mean GR. 4.50 (<5 mmHg) AO VTI 29.5 (18-25 cm) YELENA (VTI) 3.08 (2.5-4.5 cm2) Mitral Valve MV E Max Phillip. 69.0 (40-130 cm/s) MV A Velocity 80.0 (40-130 cm/s) E/A Ratio 0.87 MV Decel. Time 356 (160-240 ms) MV Mean Gr. 1.10 (<2mmHg) Tricuspid Valve TR P. Velocity 328.00 cm/s RAP Estimate 10.00 mmHg RVSP 53.10 mmHg Left Ventricle The left ventricle is normal size. The left ventricular systolic function is normal. The left ventricular ejection fraction is within the normal range. There is increased LV wall thickness. There is normal LV segmental wall motion. The left ventricular diastolic function is normal. LVEF is 55%. Right Ventricle The right ventricle is normal size. The right ventricular systolic function is normal. Atria The left atrium size is normal. The right atrium size is normal. Aortic Valve The aortic valve opens well. There is no aortic valvular stenosis. Mild aortic regurgitation. Mitral Valve The mitral valve is normal in structure. No evidence of mitral valve stenosis. Trace mitral valve regurgitation noted. Tricuspid Valve Tricuspid valve is grossly normal in structure and function. Trace tricuspid regurgitation. There is insufficient TR jet to estimate RVSP. Pulmonic Valve The pulmonary valve is normal in structure. Trace pulmonic regurgitation. Great Vessels The aortic root is normal in size. The pulmonary artery is normal. The ascending aorta is normal in size. Pericardium There is no pericardial effusion. Other Information Study Quality: Fair Conclusion Normal biventricular systolic function. Mild AI. Electronically signed by : Nadiya Tran MD 05/13/2024 11:54:00
== END 2024-05-08 23:59 | disposition home or self-care (01) ==
LOC: RT 10:24
PROVIDERS: PCP Internal Medicine; Visit Provider Nurse Practitioner
DX: R55 Syncope and collapse; R42 Dizziness and giddiness; I48.0 Paroxysmal atrial fibrillation; I10 Essential (primary) hypertension; F17.290 Nicotine dependence, other tobacco product, uncomplicated
CPT/HCPCS: 93306

== ENCOUNTER 2024-05-17 08:43 | Outpatient (CLI) | payer MEDICARE, SELFPAY ==
--- NOTE | 2024-05-17 | US_ITS ---
FINAL REPORT CLINICAL HISTORY: LT PAROTID MASS COMPARISON: CT dated 04/09/2024 FINDINGS: ULTRASOUND LEFT PAROTID GLAND: Ultrasound examination of the left parotid gland reveals an ovoid well-circumscribed hypoechoic mass in the left parotid, measuring 2.4 x 2.6 cm in size. There is no significant increased vascularity of this mass. IMPRESSION: Single 2.6 x 2.4 cm left parotid mass as described above. This may represent a solid mass or a complex cyst. Reviewed, Interpreted and Dictated by Gasper Qiu MD Transcribed by Raquel Meeks Authenticated and [facility]
--- NOTE | 2024-05-17 08:44 | US_ITS ---
FINAL REPORT CLINICAL HISTORY: .LT PAROTID MASS - AIDEE JENKINS FINDINGS: Ultrasound guided parotid biopsy. HISTORY: Left parotid mass PROCEDURE: After informed consent was obtained and a time-out was performed, the patient was prepped and draped in usual sterile fashion over the left lateral face. Utilizing local anesthesia and sterile technique with a 25-gauge needle, access to the lesion was obtained. Four passes were made. The patient received no conscious sedation. The patient tolerated procedure well and left the department in good condition. IMPRESSION: Status post ultrasound guided biopsy of a left parotid nodule without immediate complication. Films reviewed , interpreted and dictated by Dr. Qiu. Transcribed by Aidee Lozoya PA-C. Reviewed, Interpreted and Dictated by Gasper Qiu MD Transcribed by GREGORY Shelton Authenticated and [facility]
== END 2024-05-17 23:59 | disposition home or self-care (01) ==
LOC: RAD 08:44
PROVIDERS: PCP Internal Medicine; Visit Provider Nurse Practitioner
DX: K11.8 Other diseases of salivary glands (principal)
CPT/HCPCS: 10005; 76536; 88173; 88305

== ENCOUNTER 2024-05-29 16:25 | Emergency (ER) | payer MEDICARE, SELFPAY ==
[2024-05-29] VITALS (7 sets, daily range): BP systolic 115–129; BP diastolic 65–82; PULSE 48–80; RESP 14–18; TEMP 36.5–36.6; O2SAT 97–99; BMI 38.3
--- NOTE | 2024-05-29 16:22 | PC.NURSE ---
DR MURILLO AT BEDSIDE
--- NOTE | 2024-05-29 16:27 | XR_ITS ---
PROCEDURE INFORMATION: Exam: XR Chest Exam date and time: 05/29/2024 4:45 PM Age: 79 years old Clinical indication: Other: Presyncope TECHNIQUE: Imaging protocol: Radiologic exam of the chest. Views: 2 views. COMPARISON: 1. CT ANGIO CHEST PE PROTOCOL 04/09/2024 2:45 PM 2. CR XR CHEST PORTABLE 01/04/2024 4:04 PM 3. CR XR CHEST 2V 01/25/2023 10:30 PM FINDINGS: Tubes, catheters and devices: Stable position of the dual lead pacer. Lungs: Unremarkable. No consolidation. Pleural spaces: Unremarkable. No pleural effusion. No pneumothorax. Heart/Mediastinum: Unremarkable. No cardiomegaly. Bones/joints: Unremarkable. IMPRESSION: Stable chest x-ray with no acute disease.
[2024-05-29 16:35] LABS: Basophils # 0.1 K/mm3 (0-0.2); Basophils % 0.9 % (0.1-2.0); Eosinophils # 0.1 K/mm3 (0.0-0.4); Eosinophils % 0.5 % (0.1-12.0); Hematocrit 50.7 % (42.0-52.0); Hemoglobin 16.2 g/dL (14.1-18.0); Lymphocytes # 2.5 K/mm3 (0.7-4.5); Lymphocytes % 24.4 % (10-50); Mean Corpuscular HGB Conc 31.9 g/dL (31.8-35.4); Mean Corpuscular Hemoglobin 30.8 pg (27.0-31.2); Mean Corpuscular Volume 96.7 fl (80-94); Mean Platelet Volume 9.2 fl (7.4-10.4); Monocytes # 0.8 K/mm3 (0.1-1.0); Neutrophils # 6.7 K/mm3 (1.8-7.8); Neutrophils % 66.2 % (37.0-80.0); Platelet Count 260 K/mm3 (142-424); Red Blood Count 5.24 M/mm3 (4.60-6.20); Red Cell Distribution Width 13.8 % (11.5-17.5); White Blood Count 10.1 K/mm3 (4.8-10.8)
--- NOTE | 2024-05-29 16:37 | ECG_ITS ---
APPROVED REPORT Exam: Resting ECG HR:60 bpm ECG Measurements Heart Rate 60 AXES [place] 251 P 102 QRSd 80 QRS 23 QT 397 T 28 QTc 397 Conclusion ELECTRONIC ATRIAL PACEMAKER artifact in v4 Electronically signed by : NEIL MURILLO, 05/29/2024 17:50:47
[2024-05-29 16:38] LABS: Albumin Level 4.2 g/dl (3.5-5.0); Chloride 107 mmol/L (98-107); Potassium 4.2 mmoL/L (3.5-5.1); Sodium 138 mmol/L (136-145)
[2024-05-29 16:41] LABS: Alanine Aminotransferase 30 U/L (12-78); Albumin/Globulin Ratio 1.4 (1.1-1.8); Alkaline Phosphatase 52 U/L (38-126); Anion Gap 8.2 mEq/L (5-15); Aspartate Amino Transferase 33 U/L (17-59); Bilirubin,Total 0.7 mg/dl (0.2-1.3); Blood Urea Nitrogen 24 mg/dl (9-20); Calcium 9.6 mg/dl (8.4-10.2); Carbon Dioxide 27 mmol/L (22.0-30.0); Creatinine Clearance Estimated 107 mL/min (50-200); Estimated Glomerular Filt Rate 93 ml/min (>60); GFR (African American) 113 ML/MIN (>60); Glucose 109 mg/dl (74-100); Total Protein,Serum 7.2 g/dl (6.3-8.2)
--- NOTE | 2024-05-29 16:44 | ED_ITS ---
Discharge Plan Disposition Patient Disposition: Home, Self-Care Condition: Good Chief Complaint: Syncope Prescriptions Prescriptions: No Action lisinopril-hydrochlorothiazide 10-12.5 mg tablet 1 tab PO DAILY Patient Comments: TAKE ONE TABLET BY MOUTH EVERY DAY memantine 10 mg tablet 10 mg PO BID MDD 20 mg Qty: 60 6RF (DME) Accu-Chek Guide test strips Strip See Rx Instructions .ROUTE .MEDSUPPLY Qty: 10 Rx Instructions: As directed (DME) lancets [Accu-Chek Softclix Lancets] Misc See Rx Instructions .ROUTE .MEDSUPPLY Qty: 100 Rx Instructions: As directed meclizine 25 mg tablet 25 mg PO DAILY PRN (Reason: dizziness) Qty: 30 0RF Eliquis 5 mg tablet See Rx Instructions .ROUTE .COMPLEX Qty: 180 3RF Dose Instruction: TAKE ONE TABLET BY MOUTH TWICE DAILY Rx Instructions: TAKE ONE TABLET BY MOUTH TWICE DAILY Invokana 300 mg tablet See Rx Instructions .ROUTE .COMPLEX Qty: 30 5RF Dose Instruction: TAKE ONE TABLET BY MOUTH EVERY DAY Rx Instructions: TAKE ONE TABLET BY MOUTH EVERY DAY rosuvastatin 20 mg tablet 20 mg PO DAILY Qty: 90 1RF Invokana 300 mg tablet 300 mg PO DAILY Qty: 90 1RF gabapentin 300 mg capsule 300 mg PO BID Qty: 60 2RF metformin 500 mg tablet See Rx Instructions .ROUTE .COMPLEX Qty: 120 1RF Dose Instruction: TAKE TWO TABLETS BY MOUTH TWICE DAILY FOR diabetes --TAKE WITH FOOD-- Rx Instructions: TAKE TWO TABLETS BY MOUTH TWICE DAILY FOR diabetes --TAKE WITH FOOD-- metoprolol succinate 50 mg tablet extended release 24 hr See Rx Instructions .ROUTE .COMPLEX Qty: 90 1RF Dose Instruction: TAKE ONE TABLET BY MOUTH EVERY DAY Rx Instructions: TAKE ONE TABLET BY MOUTH EVERY DAY naproxen 500 mg tablet 500 mg PO BID PRN (Reason: Pain) Referrals Follow up/Referrals: Preet Morales MD [Primary Care Provider] - See instructions Activity Restrictions/Add. Instructions Additional Instructions/Restrictions: Follow-up closely with your specialists as scheduled and return for any new or worsening symptoms. Clinical Impressions Clinical Impression: Pre-syncope Instructions Patient Instructions: DI for Syncope in Adults (Fainting) Print Language Print Language: Pashto Discharge ED Provider: Aileen Hoyt Adult [facility] General Chief complaint: Syncope Stated complaint: Passed Out Time Seen by Provider: 05/29/24 16:26 Mode of Arrival: EMS Source of Information: Patient and EMS Limitations: No Limitations Description of Symptoms (Recalled from ER Triage Doc. by RN): PT REPORTS WEAKNESS WHILE PLAYING GOLF. FAMILY CALLED EMS. EMS REPORTS LOW BLOOD PRESSURE, WEAKNESS UPON STANDING. 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 He states that he was playing golf this morning with friends and he was driving to his significant other's house when he felt very weak all over. By the time he got there he stated that his vision felt like it was going out and his significant other called EMS. When they got there they noted patient to have hypotension to 90 systolic and weakness with standing. They were able to start fluids on the way over and he received 500 mL normal saline with good improvement in patient's symptoms since onset and improvement in his blood pressure. He does have a history of similar symptom after playing golf not long ago for which he was seen with a negative workup. He denies any symptoms at present Related Data Home Medications ?Medication ?Instructions ?Recorded ?Confirmed naproxen 500 mg tablet 500 mg PO BID PRN Pain 06/23/22 05/27/24 blood sugar diagnostic (Accu-Chek #10 ea 04/29/24 05/27/24 Guide test strips) lancets (Accu-Chek Softclix #100 ea 04/29/24 05/27/24 Lancets) lisinopril 10 1 tab PO DAILY 05/08/24 05/27/24 mg-hydrochlorothiazide 12.5 mg tablet Previous Rx's ?Medication ?Instructions ?Recorded meclizine 25 mg tablet 25 mg PO DAILY PRN dizziness #30 04/28/23 tabs memantine 10 mg tablet 10 mg PO BID Memory loss #60 tabs 01/30/24 apixaban 5 mg tablet (Eliquis) See Rx Instructions .Route 04/22/24 .COMPLEX #180 tabs canagliflozin 300 mg tablet 300 mg PO DAILY #90 tabs 04/24/24 (Invokana) canagliflozin 300 mg tablet See Rx Instructions .Route 04/24/24 (Invokana) .COMPLEX #30 tabs rosuvastatin 20 mg tablet 20 mg PO DAILY #90 tabs 04/24/24 gabapentin 300 mg capsule 300 mg PO BID Pain #60 caps 05/22/24 metformin 500 mg tablet See Rx Instructions .Route 05/24/24 .COMPLEX #120 tabs metoprolol succinate 50 mg See Rx Instructions .Route 05/24/24 tablet,extended release 24 hr .COMPLEX #90 tabs Allergies Allergy/AdvReac Type Severity Reaction Status Date / Time No Known Allergies Allergy Verified 05/27/24 11:16 [facility] Disclaimer: The information contained in this section may have been updated after the patient was seen, as this information can be updated by other users. Medical History (Updated 05/29/24 @ 20:19 by Aileen Hoyt MD) Pacemaker History of meniscal tear History of cardiac pacemaker Near syncope Tachy-jacinda syndrome Ventricular bigeminy seen on surveillance monitor Palpitations Bradycardia Cervical radicular pain Status post placement of implantable loop recorder Hyperlipidemia Hypertension Sinus bradycardia PAF (paroxysmal atrial fibrillation) New onset a-fib [place] (obstructive sleep apnea) Diabetes Surgical History (Updated 05/08/24 @ 13:38 by KELLY Stacy) History of left knee surgery History of permanent cardiac pacemaker placement History of appendectomy Family History Other Alcoholism Cancer Family history non-contributory Social History Smoking Status: Current every day smoker tobacco type: cigars alcohol intake: current alcohol intake frequency: a few times a week substance use type: denies use current occupational status: employed Travel in the last 8 weeks: None household members: other housing: house current occupational exposures/hazards: No caffeine: Yes ROS Obtained: Yes Systems reviewed as appropriate & no additional complaints except as documented Physical Exam General General appearance: alert and in no apparent distress Head Head exam: atraumatic and normocephalic Eye Eye exam: Present PERRL and EOMI ENT ENT exam: Present mucous membranes moist Neck Neck exam: Present normal inspection Chest Chest inspection: Present normal inspection and symmetric chest wall rise Respiratory Respiratory exam: Present normal lung sounds bilaterally; Absent respiratory distress Cardiovascular Cardiovascular exam: Present regular rate and normal rhythm Abdominal Exam Abdominal exam: Present soft; Absent tenderness Extremities Exam Extremities exam: Present normal inspection Neurological Exam Neurological exam: Present alert, oriented X3 and other (Sensation and strength intact bilateral upper and lower extremities, smile is equal with face symmetric, able to stick out tongue, raise eyebrows, close eyes) Psychiatric Psychiatric exam: Present normal affect Medical Decision Making Medical Records Medical records reviewed: Yes I reviewed the patient's medical records. [place] Inquiry Pt receiving controlled substance: No Vital Signs: 05/29/24 16:25 05/29/24 16:30 05/29/24 17:00 Temperature 97.7 F Temperature Source Oral Pulse Rate 64 64 Pulse Rate [Apical] 64 Respiratory Rate 18 16 15 Blood Pressure 115/65 120/67 Blood Pressure [Right Arm] 117/71 Blood Pressure Mean 76 Blood Pressure Mean [Right Arm] 86 Blood Pressure Source [Right Arm] Automatic Cuff Blood Pressure Position [Right Arm] Sitting 02 Sat by Pulse Oximetry 97 99 98 Oxygen Delivery Method Room Air Room Air 05/29/24 17:31 05/29/24 18:01 05/29/24 18:30 Temperature Temperature Source Pulse Rate 48 L 80 65 Pulse Rate [Apical] Respiratory Rate 18 14 Blood Pressure 128/82 124/78 128/77 Blood Pressure [Right Arm] Blood Pressure Mean 88 Blood Pressure Mean [Right Arm] Blood Pressure Source [Right Arm] Blood Pressure Position [Right Arm] 02 Sat by Pulse Oximetry 98 97 98 Oxygen Delivery Method Room Air Room Air Lab Data Lab results reviewed: Yes I reviewed the patient's lab results. Lab Results 05/29/24 16:20: WBC 10.1, RBC 5.24, Hgb 16.2, Hct 50.7, MCV 96.7 H, MCH 30.8, MCHC 31.9, RDW 13.8, Plt Count 260, MPV 9.2, Neut % (Auto) 66.2, Lymph % (Auto) 24.4, [place] % (Auto) 8.0, Eos % (Auto) 0.5, Baso % (Auto) 0.9, Neut # (Auto) 6.7, Lymph # (Auto) 2.5, [place] # (Auto) 0.8, Eos # (Auto) 0.1, Baso # (Auto) 0.1, Sodium 138, Potassium 4.2, Chloride 107, Carbon Dioxide 27, Anion Gap 8.2, BUN 24 H, Creatinine 0.80, Estimated Creat Clear 107, Estimated GFR 93, Est GFR ( Amer) 113, Glucose 109 H, Calcium 9.6, Total Bilirubin 0.7, AST 33, ALT 30, Alkaline Phosphatase 52, CK-MB (CK-2) 2.9 H, Troponin I < 0.01, NT-Pro-B Natriuret Pep 63.6, Total Protein 7.2, Albumin 4.2, Globulin 3.0, Albumin/Globulin Ratio 1.4 05/29/24 19:29: Troponin I < 0.01 05/29/24 16:20 05/29/24 16:20 Orders (Tests/Meds): ORDERS Category Date Time Status XR chest 2V Stat Exams 05/29/24 16:27 Completed Complete Blood Count Auto Diff Stat Lab 05/29/24 16:20 Completed Comprehensive Metabolic Panel Stat Lab 05/29/24 16:20 Completed Creatine Kinase MB Stat Lab 05/29/24 16:20 Completed NT Pro Brain Natriuretic Pep. Stat Lab 05/29/24 16:20 Completed Trop I [Troponin I] Stat Lab 05/29/24 16:20 Completed Troponin I Stat Lab 05/29/24 19:29 Completed ECG Data Tracing #1: I reviewed this ECG and interpreted as documented below: EKG showing an atrial paced rhythm at a rate of 60, normal intervals, no acute ischemia or infarction ECG initial impression date: 05/29/24 ECG initial impression time: 16:37 HEART Score History (anamnesis): Slightly suspicious ECG: Normal Age: >65 years Risk factors: 3 or more risk factors Troponin: </= normal limit HEART Score: 4 Medical Decision Narrative: Patient is a 79-year-old male with past medical history of type 2 diabetes, hypertension, tachybradycardia syndrome status post pacemaker placement presenting with presyncopal symptoms. He was playing golf all day this morning and then noted when he was driving he felt very weak, was noted to be hypotensive by EMS on arrival which successfully resolved after 500 mL normal saline and he is presently asymptomatic. His exam is overall unremarkable and his he is hemodynamically stable. He does have a history of similar symptoms occurring recently for which an evaluation was unremarkable and he did follow-up with specialists that was recommended and has not had any issues since. Will obtain blood work for further evaluation. EKG without acute ischemia or infarction does show an atrial paced rhythm, CBC and CMP nonactionable, troponin negative, chest x-ray showing no acute process, will obtain a repeat troponin 3 hours from initial and patient placed into ED obs status while pending repeat troponin. Patient remained hemodynamically stable while in the ED obs status. Repeat troponin negative and patient had no further episodes or symptoms while in the ED. He has follow up with his specialists early next week and discussed keeping these appointments and return precautions to which he is agreeable. Discharged in stable condition. Critical Care Critical Care Time Critical Care Time: No
--- NOTE | 2024-05-29 16:45 | PC.NURSE ---
Rounded on the PT. PT asked for a glass of water, PT stated he doesn't need anything else at this time.
--- NOTE | 2024-05-29 16:50 | PC.NURSE ---
Pt gone to RAD via wheelchair
[2024-05-29 16:51] LABS: Creatine Kinase MB 2.9 ng/ml (0.0-2.03); NT Pro Brain Natriuretic Pep. 63.6 pg/mL (0-450)
[2024-05-29 16:58] LABS: Troponin I < 0.01 ng/ml (0.00-0.034)
--- NOTE | 2024-05-29 17:00 | PC.NURSE ---
Pt returned to room from RAD
--- NOTE | 2024-05-29 18:08 | PC.NURSE ---
Rounded on pt. Urinal emptied. No other needs voiced at this time. Call light remains within reach.
[2024-05-29 20:13] LABS: Troponin I < 0.01 ng/ml (0.00-0.034)
== END 2024-05-29 20:29 | disposition home or self-care (01) ==
PROVIDERS: Emergency Provider Emergency Medicine; PCP Internal Medicine
DX: R55 Syncope and collapse (principal); H53.8 Other visual disturbances; E11.9 Type 2 diabetes mellitus without complications; I10 Essential (primary) hypertension; E78.5 Hyperlipidemia, unspecified; I48.0 Paroxysmal atrial fibrillation; Z79.01 Long term (current) use of anticoagulants; Z79.84 Long term (current) use of oral hypoglycemic drugs
CPT/HCPCS: 71046; 80053; 82553; 83880; 84484; 85025; 93005; 99284

== ENCOUNTER 2024-06-05 08:49 | Outpatient (CLI) | payer MEDICARE, SELFPAY ==
--- NOTE | 2024-06-05 08:55 | US_ITS ---
FINAL REPORT CLINICAL HISTORY: LT parotid mass -- LT parotid FNA -- mando JENKINS FINDINGS: Ultrasound guided left parotid biopsy. HISTORY: Left parotid lesion. Attending radiologist: Dr. Qiu Physician Plywood Matcher: Mando Porter PA-C PROCEDURE: After informed consent was obtained and a time-out was performed, the patient was prepped and draped in usual sterile fashion over the left neck. Utilizing local anesthesia and sterile technique with a 25-gauge needle, access to a left parotid lesion was obtained under direct ultrasound guidance. Three passes were made under direct ultrasound guidance. The patient received no conscious sedation. The patient tolerated procedure well and left the department in good condition. IMPRESSION: Status post ultrasound guided biopsy of left parotid lesion without immediate complication. Lesion was predominantly cystic and nearly completely decompressed after the biopsy. Samples were sent for cytology and flow cytometry. Films reviewed, interpreted and dictated by Dr. Qiu. Transcribed by Mando Porter PA-C. Reviewed, Interpreted and Dictated by Gasper Qiu MD Transcribed by GREGORY Bhatia Authenticated and [facility]
== END 2024-06-05 23:59 | disposition home or self-care (01) ==
LOC: RAD 08:51
PROVIDERS: PCP Internal Medicine; Visit Provider Nurse Practitioner
DX: K11.8 Other diseases of salivary glands (principal)
CPT/HCPCS: 10005; 88173; 88184; 88185; 88305

== ENCOUNTER 2024-07-08 13:48 | Outpatient (CLI) | payer MEDICARE, SELFPAY ==
[2024-07-08 13:33] LABS: Chol/HDL Ratio 3.6 (1-3.5); Cholesterol 130 mg/dl (140-200); HDL Cholesterol 36 mg/dl (40-60); Triglycerides 148 mg/dl (30-150); VLDL Cholesterol 30 mg/dL (0-40)
[2024-07-08 13:44] LABS: Direct LDL Cholesterol 71.32 mg/dL (100-129)
[2024-07-08 16:52] LABS: Hemoglobin A1C 7.9 % (4.0-6.0)
== END 2024-07-08 23:59 | disposition home or self-care (01) ==
LOC: LAB.DROPOF 13:48
PROVIDERS: PCP Internal Medicine; Visit Provider Internal Medicine
DX: E78.5 Hyperlipidemia, unspecified (principal); E11.49 Type 2 diabetes mellitus with other diabetic neurological complication
CPT/HCPCS: 80061; 83036

== ENCOUNTER 2024-11-17 14:22 | Emergency (ER) | payer MEDICARE, SELFPAY ==
[2024-11-17] VITALS (7 sets, daily range): BP systolic 93–122; BP diastolic 47–69; PULSE 60–78; RESP 13–16; TEMP 36.6–36.8; O2SAT 91–100; BMI 34.8
--- NOTE | 2024-11-17 14:32 | ECG_ITS ---
APPROVED REPORT Exam: Resting ECG HR:62 bpm ECG Measurements Heart Rate 62 AXES [place] 224 P 131 QRSd 84 QRS 12 QT 378 T 12 QTc 384 Conclusion ELECTRONIC ATRIAL PACEMAKER LOW QRS VOLTAGE IN PRECORDIAL LEADS [QRS DEFLECTION < 1.0 mV IN CHEST LEADS] ABNORMAL RHYTHM ECG UNCONFIRMED REPORT Electronically signed by : SHAYNA BREWER, 11/18/2024 23:13:57
--- NOTE | 2024-11-17 14:44 | CT_ITS ---
PROCEDURE INFORMATION: Exam: CT Head Without Contrast Exam date and time: 11/17/2024 3:22 PM Age: 79 years old Clinical indication: Dizziness; Additional info: Dizzy TECHNIQUE: Imaging protocol: Computed tomography of the head without contrast. Radiation optimization: All CT scans at this facility use at least one of these dose optimization techniques: automated exposure control; mA and/or kV adjustment per patient size (includes targeted exams where dose is matched to clinical indication); or iterative reconstruction. COMPARISON: CT ANGIO HEAD 04/09/2024 2:42 PM FINDINGS: Brain: Mild chronic changes. No intracranial hemorrhage. No midline shift. Cerebral ventricles: No ventriculomegaly. Paranasal sinuses: Visualized sinuses are unremarkable. No fluid levels. Mastoid air cells: Visualized mastoid air cells are well aerated. Bones: Unremarkable. No acute fracture. Soft tissues: Unremarkable. IMPRESSION: No acute intracranial abnormality.
--- NOTE | 2024-11-17 14:44 | CT_ITS ---
PROCEDURE INFORMATION: Exam: CTA Neck With Contrast Exam date and time: 11/17/2024 3:24 PM Age: 79 years old Clinical indication: Dizziness and giddiness; Additional info: Dizzy TECHNIQUE: Imaging protocol: Computed tomographic angiography of the neck with contrast. Exam focused on the cervical segments of the vasculature. 3D rendering (Not supervised by radiologist): MIP and/or 3D reconstructed images were created by the technologist. Radiation optimization: All CT scans at this facility use at least one of these dose optimization techniques: automated exposure control; mA and/or kV adjustment per patient size (includes targeted exams where dose is matched to clinical indication); or iterative reconstruction. Contrast material: ISOVUE 370; Contrast volume: 80 ml; Contrast route: INTRAVENOUS (IV); COMPARISON: CT ANGIO NECK 04/09/2024 2:42 PM FINDINGS: Tubes, catheters and devices: Pacemaker. Right common carotid artery: No stenosis. No dissection or occlusion. Right internal carotid artery: No stenosis of the extracranial segment. No dissection or occlusion. Right external carotid artery: No occlusion or stenosis of the origin. Left common carotid artery: No stenosis. No dissection or occlusion. Left internal carotid artery: No stenosis of the extracranial segment. No dissection or occlusion. Left external carotid artery: No occlusion or stenosis of the origin. Right vertebral artery: No stenosis. No dissection or occlusion. Left vertebral artery: No stenosis. No dissection or occlusion. Soft tissues: Normal. No significant soft tissue swelling. Bones/joints: No acute fracture. Other findings: Thin section images are in the CT angiogram head folder. IMPRESSION: No acute abnormality. No hemodynamically significant stenosis. REFERENCES: NASCET CRITERIA. The degree of stenosis in the cervical segment of the internal carotid artery is based on NASCET criteria. Normal is no stenosis. Mild is less than 50% stenosis. Moderate is 50-69% stenosis. Severe is 70% to 99% stenosis. Total occlusion is no detectable patent lumen.
--- NOTE | 2024-11-17 14:44 | CT_ITS ---
PROCEDURE INFORMATION: Exam: CTA Head With Contrast, Arteriography Exam date and time: 11/17/2024 3:24 PM Age: 79 years old Clinical indication: Dizziness and giddiness; Additional info: Dizzy TECHNIQUE: Imaging protocol: Computed tomographic angiography of the head with contrast. Exam focused on the arteries. 3D rendering (Not supervised by radiologist): MIP and/or 3D reconstructed images were created by the technologist. Radiation optimization: All CT scans at this facility use at least one of these dose optimization techniques: automated exposure control; mA and/or kV adjustment per patient size (includes targeted exams where dose is matched to clinical indication); or iterative reconstruction. Contrast material: ISOVUE 370; Contrast volume: 80 ml; Contrast route: INTRAVENOUS (IV); COMPARISON: CT ANGIO HEAD 04/09/2024 2:42 PM FINDINGS: ANTERIOR CIRCULATION: Right internal carotid artery: Intracranial segment is patent with no significant stenosis. No aneurysm. Right middle cerebral artery: No occlusion or significant stenosis. No aneurysm. Right anterior cerebral artery: No occlusion or significant stenosis. No aneurysm. Left internal carotid artery: Intracranial segment is patent with no significant stenosis. No aneurysm. Left middle cerebral artery: No occlusion or significant stenosis. No aneurysm. Left anterior cerebral artery: No occlusion or significant stenosis. No aneurysm. POSTERIOR CIRCULATION: Right vertebral artery: No occlusion or significant stenosis. No aneurysm. Left vertebral artery: No occlusion or significant stenosis. No aneurysm. Basilar artery: No occlusion or significant stenosis. No aneurysm. Right posterior cerebral artery: No occlusion or significant stenosis. No aneurysm. Left posterior cerebral artery: No occlusion or significant stenosis. No aneurysm. Brain: Please see CT brain report. Cerebral ventricles: No ventriculomegaly. Paranasal sinuses: Small polyp or cyst in the right maxillary sinus. Mucous membrane thickening in the left maxillary sinus. Bones/joints: Unremarkable. No acute fracture. Soft tissues: Unremarkable. IMPRESSION: No large vessel stenosis or occlusion.
--- NOTE | 2024-11-17 14:45 | XR_ITS ---
PROCEDURE INFORMATION: Exam: XR Chest Exam date and time: 11/17/2024 3:09 PM Age: 79 years old Clinical indication: Other: Cp dizzy TECHNIQUE: Imaging protocol: Radiologic exam of the chest. Views: 1 view. COMPARISON: CR XR CHEST 2V 05/29/2024 4:45 PM FINDINGS: Tubes, catheters and devices: Pacemaker. Lungs: Unremarkable. No consolidation. Pleural spaces: Unremarkable. No pleural effusion. No pneumothorax. Heart/Mediastinum: Unremarkable. No cardiomegaly. Bones/joints: Unremarkable. IMPRESSION: The lungs are clear. There is a pacemaker.
[2024-11-17 14:58] LABS: Basophils % 0.4 % (0.1-2.0); Eosinophils # 0.1 K/mm3 (0.0-0.4); Eosinophils % 0.6 % (0.1-12.0); Hemoglobin 16.6 g/dL (14.1-18.0); Lymphocytes # 2.5 K/mm3 (0.7-4.5); Lymphocytes % 24.9 % (10-50); Mean Corpuscular HGB Conc 34.6 g/dL (31.8-35.4); Mean Corpuscular Hemoglobin 30.6 pg (27.0-31.2); Mean Corpuscular Volume 88.6 fl (80-94); Mean Platelet Volume 10.2 fl (7.4-10.4); Monocytes # 0.8 K/mm3 (0.1-1.0); Monocytes % 8.1 % (1.7-9.3); Neutrophils # 6.7 K/mm3 (1.8-7.8); Neutrophils % 65.8 % (37.0-80.0); Platelet Count 238 K/mm3 (142-424); Red Blood Count 5.42 M/mm3 (4.60-6.20); Red Cell Distribution Width 12.9 % (11.5-17.5); White Blood Count 10.1 K/mm3 (4.8-10.8)
--- NOTE | 2024-11-17 14:58 | PC.NURSE ---
patient brought back to bed 4 after triage completed. patient reports he just came back from a walk and was attempting to cut potatoes when he felt like he started feeling light headed and had to sit down. he reports this was before 1200 today and has had several episodes similar to this several times in the past year. [facility] scored a 0. provider at bedside during this time.
[2024-11-17 15:03] LABS: Albumin Level 4.4 g/dl (3.5-5.0); Chloride 102 mmol/L (98-107); Sodium 140 mmol/L (136-145)
[2024-11-17 15:04] LABS: Potassium 3.9 mmoL/L (3.5-5.1)
[2024-11-17 15:06] LABS: Alanine Aminotransferase 33 U/L (12-78); Anion Gap 12.9 mEq/L (5-15); Aspartate Amino Transferase 32 U/L (17-59); Blood Urea Nitrogen 19 mg/dl (9-20); Carbon Dioxide 29 mmol/L (22.0-30.0); Creatinine Clearance Estimated 98 mL/min (50-200); Estimated Glomerular Filt Rate 93 ml/min (>60); GFR (African American) 113 ML/MIN (>60)
[2024-11-17 15:07] LABS: Albumin/Globulin Ratio 1.6 (1.1-1.8); Alkaline Phosphatase 63 U/L (38-126); Bilirubin,Total 0.7 mg/dl (0.2-1.3); Calcium 9.9 mg/dl (8.4-10.2); Globulin 2.7 g/dL (1.3-3.2); Glucose 189 mg/dl (74-100); Total Protein,Serum 7.1 g/dl (6.3-8.2)
--- NOTE | 2024-11-17 15:15 | PC.NURSE ---
Patient to radiology.
[2024-11-17 15:20] LABS: Troponin I < 0.01 ng/ml (0.00-0.034)
[2024-11-17] MEDS: IOPAMIDOL-370 (76%);100ML BOTTLE 80 ML IV (15:21)
[2024-11-17] MEDS: SODIUM CHLORIDE 0.9% 10ML SYR (RAD ONLY) 10 ML IV (15:21)
[2024-11-17] MEDS: 0.9 % SODIUM CHLORIDE 50 ML VIAL IV (15:21)
--- NOTE | 2024-11-17 15:30 | PC.NURSE ---
Patient back from radiology
[2024-11-17 15:32] LABS: Free T4 (Free Thyroxine) 0.81 ng/dl (0.78-2.19)
[2024-11-17 15:38] LABS: Thyroid Stimulating Hormone 1.04 uIU/mL (0.465-4.68)
--- NOTE | 2024-11-17 16:34 | ED_ITS ---
<Statement entered by Jimmy Travis MD - 11/18/24 08:46> I was consulted by the SAVANNA, and we discussed the complexity of the problems being addressed. I approved the treatment and management plan for this patient's care in the emergency department, thus performing a substantive portion of the medical decision making. Jimmy Travis MD Discharge Plan Disposition Patient Disposition: Home, Self-Care Condition: Good Prescriptions Prescriptions: No Action memantine 10 mg tablet 10 mg PO BID MDD 20 mg Qty: 60 6RF (DME) Accu-Chek Guide test strips Strip See Rx Instructions .ROUTE .MEDSUPPLY Qty: 10 Rx Instructions: As directed (DME) lancets [Accu-Chek Softclix Lancets] Misc See Rx Instructions .ROUTE .MEDSUPPLY Qty: 100 Rx Instructions: As directed meclizine 25 mg tablet 25 mg PO DAILY PRN (Reason: dizziness) Qty: 30 0RF Eliquis 5 mg tablet See Rx Instructions .ROUTE .COMPLEX Qty: 180 3RF Dose Instruction: TAKE ONE TABLET BY MOUTH TWICE DAILY Rx Instructions: TAKE ONE TABLET BY MOUTH TWICE DAILY Invokana 300 mg tablet See Rx Instructions .ROUTE .COMPLEX Qty: 30 5RF Dose Instruction: TAKE ONE TABLET BY MOUTH EVERY DAY Rx Instructions: TAKE ONE TABLET BY MOUTH EVERY DAY Invokana 300 mg tablet 300 mg PO DAILY Qty: 90 1RF metoprolol succinate 50 mg tablet extended release 24 hr See Rx Instructions .ROUTE .COMPLEX Qty: 90 1RF Dose Instruction: TAKE ONE TABLET BY MOUTH EVERY DAY Rx Instructions: TAKE ONE TABLET BY MOUTH EVERY DAY lisinopril-hydrochlorothiazide 10-12.5 mg tablet See Rx Instructions .ROUTE .COMPLEX Qty: 90 1RF Dose Instruction: TAKE ONE TABLET BY MOUTH EVERY DAY Rx Instructions: TAKE ONE TABLET BY MOUTH EVERY DAY rosuvastatin 20 mg tablet 20 mg PO DAILY Qty: 14 0RF gabapentin 300 mg capsule 300 mg PO BID Qty: 60 2RF metformin 500 mg tablet See Rx Instructions .ROUTE .COMPLEX Qty: 180 1RF Dose Instruction: TAKE TWO TABLETS BY MOUTH TWICE DAILY with meals Rx Instructions: TAKE TWO TABLETS BY MOUTH TWICE DAILY with meals naproxen 500 mg tablet 500 mg PO BID PRN (Reason: Pain) Referrals Follow up/Referrals: Preet Morales MD [Primary Care Provider] - See instructions Activity Restrictions/Add. Instructions Additional Instructions/Restrictions: Today your evaluated in the emergency department, your workup was completely unremarkable. Please follow-up with your PCP as scheduled within 1 week. Return to the ED for worsening of condition. Clinical Impressions Clinical Impression: Dizziness Instructions Patient Instructions: Dizziness, Nonvertigo Print Language Print Language: Nepalese Discharge ED Provider: Jimmy Travis General Adult HPI General Chief complaint: Dizziness Stated complaint: light headed, weakness, wants BP checked Time Seen by Provider: 11/17/24 14:35 Mode of Arrival: Ambulatory Source of Information: Patient Limitations: No Limitations Description of Symptoms (Recalled from ER Triage Doc. by RN): Pt states he was on his morning walk this AM and began to feel dizzy and lightheaded. History of Present Illness HPI narrative: patient is a 74-year-old male PMHx CVA, HTN, DM, HLD, history of memory loss who presents to the ED for dry cough, mild shortness of breath, weight loss x 2 months. Patient states that he has lost approximately 10 pounds. He states about 2 months ago he had upper respiratory symptoms and was treated with oral antibiotics and steroids however his symptoms have continued. Patient states he has not followed back up with PCP after he finished his antibiotic course. Related Data Home Medications ?Medication ?Instructions ?Recorded ?Confirmed naproxen 500 mg tablet 500 mg PO BID PRN Pain 06/23/22 11/17/24 blood sugar diagnostic (Accu-Chek #10 ea 04/29/24 11/17/24 Guide test strips) lancets (Accu-Chek Softclix #100 ea 04/29/24 11/17/24 Lancets) Previous Rx's ?Medication ?Instructions ?Recorded meclizine 25 mg tablet 25 mg PO DAILY PRN dizziness #30 04/28/23 tabs apixaban 5 mg tablet (Eliquis) See Rx Instructions .Route 04/22/24 .COMPLEX #180 tabs canagliflozin 300 mg tablet 300 mg PO DAILY #90 tabs 04/24/24 (Invokana) canagliflozin 300 mg tablet See Rx Instructions .Route 04/24/24 (Invokana) .COMPLEX #30 tabs metoprolol succinate 50 mg See Rx Instructions .Route 05/24/24 tablet,extended release 24 hr .COMPLEX #90 tabs lisinopril 10 See Rx Instructions .Route 06/18/24 mg-hydrochlorothiazide 12.5 mg .COMPLEX #90 tabs tablet memantine 10 mg tablet 10 mg PO BID Memory loss #60 tabs 07/31/24 gabapentin 300 mg capsule 300 mg PO BID Pain #60 caps 10/11/24 rosuvastatin 20 mg tablet 20 mg PO DAILY #14 tabs 10/11/24 metformin 500 mg tablet See Rx Instructions .Route 10/18/24 .COMPLEX #180 tabs Allergies Allergy/AdvReac Type Severity Reaction Status Date / Time No Known Allergies Allergy Verified 11/17/24 15:18 [facility] Disclaimer: The information contained in this section may have been updated after the patient was seen, as this information can be updated by other users. Medical History Pacemaker History of meniscal tear History of cardiac pacemaker Near syncope Tachy-jacinda syndrome Ventricular bigeminy seen on desk monitor Palpitations Bradycardia Cervical radicular pain Status post placement of implantable loop recorder Hyperlipidemia Hypertension Sinus bradycardia PAF (paroxysmal atrial fibrillation) New onset a-fib [place] (obstructive sleep apnea) On CPAP 9 cm, FF mask, ROMARIO Juares. Diabetes Surgical History History of left knee surgery History of permanent cardiac pacemaker placement History of appendectomy Family History Other Alcoholism Cancer Family history non-contributory Social History Smoking Status: Never smoker alcohol intake: current alcohol intake frequency: a few times a week substance use type: denies use current occupational status: employed Travel in the last 8 weeks: None household members: other housing: house current occupational exposures/hazards: No caffeine: Yes Have you lived/traveled outside US in past 30 days?: No Contact w/someone who lives/traveled outside US past 30 days?: No Exposure to someone with infectious disease in past 14 days?: No Do you have a fever (greater than 100.4 F or 38 C)?: No Have you tested positive for COVID-19: No Exposed to someone with COVID-19 in past 14 days?: No Do you have a sore throat?: No Do you have a cough?: No Do you have any weakness?: Yes Do you have any diarrhea?: No Are you experiencing any unusual bleeding?: No Do you have any muscle aches/pain?: No Do you have any abdominal pain?: No Are you experiencing loss of taste or smell?: No Other Medical History Have you received the Flu Vaccine for this season: Yes Have you received the Pneumonia Vaccine: Yes ROS Obtained: Yes Systems reviewed as appropriate & no additional complaints except as documented Physical Exam General General appearance: alert and in no apparent distress Head Head exam: atraumatic and normocephalic Eye Eye exam: Present normal appearance and PERRL ENT ENT exam: Present normal exam Neck Neck exam: Present normal inspection Chest Chest inspection: Present normal inspection and symmetric chest wall rise; Absent tenderness Respiratory Respiratory exam: Present normal lung sounds bilaterally Cardiovascular Cardiovascular exam: Present regular rate Abdominal Exam Abdominal exam: Present soft and normal bowel sounds; Absent tenderness Extremities Exam Extremities exam: Present normal inspection and full ROM Back Exam Back exam: Present normal inspection and full ROM Neurological Exam Neurological exam: Present alert and oriented X3 Psychiatric Psychiatric exam: Present normal affect and normal mood Skin Skin exam: Present warm and dry Medical Decision Making Medical Records Screening: Per USPSTF and CDC recommendations, given the prevalence of disease in our region, it is our hospital?s policy to screen for HIV and viral Hepatitis for all patients aged 18 and over and those with ongoing risk factors. Liban Inquiry Pt receiving controlled substance: No Liban was queried for this patient: No Vital Signs: 11/17/24 14:27 11/17/24 14:53 11/17/24 14:54 Temperature 98.3 F Temperature Source Oral Pulse Rate 60 64 Pulse Rate [Orthostatic Lying] Pulse Rate [Orthostatic Sitting] Pulse Rate [Orthostatic Standing] Pulse Rate [Right] 78 Respiratory Rate 16 15 15 Blood Pressure 109/66 L 93/47 L Blood Pressure [Orthostatic Lying Left Arm] Blood Pressure [Orthostatic Sitting Left Arm] Blood Pressure [Orthostatic Standing Left Arm] Blood Pressure [Right Arm] 101/64 L Blood Pressure Mean Blood Pressure Mean [Right Arm] 76 Blood Pressure Source Blood Pressure Source [Right Arm] Automatic Cuff Blood Pressure Position Blood Pressure Position [Right Arm] Sitting 02 Sat by Pulse Oximetry 97 95 93 L Oxygen Delivery Method Room Air Room Air Room Air 11/17/24 14:55 11/17/24 14:55 11/17/24 15:01 Temperature Temperature Source Pulse Rate 66 62 Pulse Rate [Orthostatic Lying] 61 Pulse Rate [Orthostatic Sitting] 60 Pulse Rate [Orthostatic Standing] 74 Pulse Rate [Right] Respiratory Rate 14 Blood Pressure 100/67 L 113/62 Blood Pressure [Orthostatic Lying Left Arm] 109/66 L Blood Pressure [Orthostatic Sitting Left Arm] 93/47 L Blood Pressure [Orthostatic Standing Left Arm] 100/67 L Blood Pressure [Right Arm] Blood Pressure Mean 76 Blood Pressure Mean [Right Arm] Blood Pressure Source Blood Pressure Source [Right Arm] Blood Pressure Position Blood Pressure Position [Right Arm] 02 Sat by Pulse Oximetry 91 L 95 Oxygen Delivery Method Room Air Room Air 11/17/24 15:31 11/17/24 16:58 Temperature 97.9 F Temperature Source Oral Pulse Rate 63 61 Pulse Rate [Orthostatic Lying] Pulse Rate [Orthostatic Sitting] Pulse Rate [Orthostatic Standing] Pulse Rate [Right] Respiratory Rate 13 15 Blood Pressure 122/69 117/68 Blood Pressure [Orthostatic Lying Left Arm] Blood Pressure [Orthostatic Sitting Left Arm] Blood Pressure [Orthostatic Standing Left Arm] Blood Pressure [Right Arm] Blood Pressure Mean Blood Pressure Mean [Right Arm] Blood Pressure Source Automatic Cuff Blood Pressure Source [Right Arm] Blood Pressure Position Sitting Blood Pressure Position [Right Arm] 02 Sat by Pulse Oximetry 98 Oxygen Delivery Method Room Air Room Air Lab Data Lab Results 11/17/24 14:51: WBC 10.1, RBC 5.42, Hgb 16.6, Hct 48.0, MCV 88.6, MCH 30.6, MCHC 34.6, RDW 12.9, Plt Count 238, MPV 10.2, Neut % (Auto) 65.8, Lymph % (Auto) 24.9, [place] % (Auto) 8.1, Eos % (Auto) 0.6, Baso % (Auto) 0.4, Neut # (Auto) 6.7, Lymph # (Auto) 2.5, [place] # (Auto) 0.8, Eos # (Auto) 0.1, Baso # (Auto) 0.0, Sodium 140, Potassium 3.9, Chloride 102, Carbon Dioxide 29, Anion Gap 12.9, BUN 19, Creatinine 0.80, Estimated Creat Clear 98, Estimated GFR 93, Est GFR ( Amer) 113, Glucose 189 H, Calcium 9.9, Total Bilirubin 0.7, AST 32, ALT 33, Alkaline Phosphatase 63, Troponin I < 0.01, Total Protein 7.1, Albumin 4.4, Globulin 2.7, Albumin/Globulin Ratio 1.6, TSH 1.04, Free T4 0.81 11/17/24 14:51 11/17/24 14:51 Orders (Tests/Meds): ED MEDICATIONS Discontinued Medications Generic Name Dose Route Start Last Admin Trade Name Arnolq PRN Reason Stop Dose Admin Iopamidol 80 ml 11/17/24 15:21 11/17/24 15:21 Iopamidol-370 (76%);100ml Bottle IV 11/17/24 15:22 80 ml ONCE ONE Administration Sodium Chloride 50 ml 11/17/24 15:21 11/17/24 15:21 0.9 % Sodium Chloride 50 Ml Vial IV 11/17/24 15:22 50 ml ONCE ONE Administration Sodium Chloride 10 ml 11/17/24 15:21 11/17/24 15:21 Sodium Chloride 0.9% 10ml Syr (Rad Only) IV 11/17/24 15:22 10 ml ONCE ONE Administration ORDERS Category Date Time Status CT angio head Stat Cat Scan 11/17/24 14:[address] angio neck Stat Cat Scan 11/17/24 14:[address] head/brain wo con Stat Cat Scan 11/17/24 14:44 Completed CXR --portable [XR chest portable] Stat Exams 11/17/24 14:45 Completed CBC w/Auto Diff [Complete Blood Count Auto Diff] Stat Lab 11/17/24 14:51 Completed CMP [Comprehensive Metabolic Panel] Stat Lab 11/17/24 14:51 Completed Free T4 (Free Thyroxine) Stat Lab 11/17/24 14:51 Completed TSH [Thyroid Stimulating Hormone] Stat Lab 11/17/24 14:51 Completed Trop I [Troponin I] Stat Lab 11/17/24 14:51 Completed Medical Decision Narrative: In summary, patient is a 74-year-old male PMHx CVA, HTN, DM, HLD, pacemaker, history of memory loss who presents to the ED for dry cough, mild shortness of breath, weight loss x 2 months. Patient states that he has lost approximately 10 pounds. He states about 2 months ago he had upper respiratory symptoms and was treated with oral antibiotics and steroids however his symptoms have continued. Patient states he has not followed back up with PCP after he finished his antibiotic course. Patient states symptoms have completely resolved prior to arrival. Upon initial exam, patient is alert, oriented and cooperative. Patient is hemodynamically stable. Physical exam unremarkable. NIH 0. Denies fever, chills, body aches, headache, visual disturbances, posterior neck pain, chest pain, shortness of breath, abdominal pain, nausea, vomiting, dysuria. Differential diagnosis includes stroke, ICH, ACS, infectious process, TIA, confusion, among other Initial workup will be conducted with hematologic labs, imaging. Initial workup reviewed by me. Hematologic labs reviewed. CBC unremarkable for any leukocytosis, stable H&H. CMP unremarkable for any actionable abnormalities. First troponin < 0.01. Normal TSH and T4. Chest x-ray unremarkable for any acute findings per final read. Head CT, head CTA and neck CTA are unremarkable for any acute findings. Discussed with patient that workup is overall unremarkable. He states that he just found out he has to put his dog down and thinks that he had an episode of stress. Patient is able to ambulate without difficulty, he is tolerating PO. Given this, I discussed with patient that he is safe to be discharged home at this time. Patient is agreeable. He has remained asymptomatic while in the ED. He states that he has follow-up scheduled with his PCP within 1 week. We discussed return precautions to the ED. He was hemodynamically stable upon discharge. Critical Care Critical Care Time Critical Care Time: No
--- NOTE | 2024-11-17 16:47 | PC.NURSE ---
Rounded on the pt. no new complaints at this time. no needs voiced. call elizabeth in reach.
[2024-11-18 06:51] LABS: POC Glucose,Bedside 213 (70-110)
== END 2024-11-17 16:58 | disposition home or self-care (01) ==
PROVIDERS: Nurse Practitioner; Emergency Provider Emergency Medicine; PCP Internal Medicine
DX: R42 Dizziness and giddiness (principal); R05.9 Cough, unspecified; R06.02 Shortness of breath; R63.4 Abnormal weight loss
CPT/HCPCS: 70450; 70496; 70498; 71045; 80053; 82962; 84439; 84443; 84484; 85025; 93005; 99285; Q9967

== ENCOUNTER 2025-03-08 08:51 | Emergency (ER) | payer MEDICARE, SELFPAY ==
--- NOTE | 2025-03-08 08:55 | HMH.EDGENADL ---
Discharge Plan Disposition Chief Complaint: Eye Problems Prescriptions Prescriptions: No Action memantine 10 mg tablet 10 mg PO BID MDD 20 mg Qty: 60 6RF (DME) Accu-Chek Guide test strips Strip See Rx Instructions .ROUTE .MEDSUPPLY Qty: 10 Rx Instructions: As directed (DME) lancets [Accu-Chek Softclix Lancets] Misc See Rx Instructions .ROUTE .MEDSUPPLY Qty: 100 Rx Instructions: As directed meclizine 25 mg tablet 25 mg PO DAILY PRN (Reason: dizziness) Qty: 30 0RF Eliquis 5 mg tablet See Rx Instructions .ROUTE .COMPLEX Qty: 180 3RF Dose Instruction: TAKE ONE TABLET BY MOUTH TWICE DAILY Rx Instructions: TAKE ONE TABLET BY MOUTH TWICE DAILY Invokana 300 mg tablet See Rx Instructions .ROUTE .COMPLEX Qty: 30 5RF Dose Instruction: TAKE ONE TABLET BY MOUTH EVERY DAY Rx Instructions: TAKE ONE TABLET BY MOUTH EVERY DAY Invokana 300 mg tablet 300 mg PO DAILY Qty: 90 1RF metoprolol succinate 50 mg tablet extended release 24 hr See Rx Instructions .ROUTE .COMPLEX Qty: 90 1RF Dose Instruction: TAKE ONE TABLET BY MOUTH EVERY DAY Rx Instructions: TAKE ONE TABLET BY MOUTH EVERY DAY rosuvastatin 20 mg tablet 20 mg PO DAILY Qty: 14 0RF lisinopril-hydrochlorothiazide 10-12.5 mg tablet See Rx Instructions .ROUTE .COMPLEX Qty: 90 1RF Dose Instruction: TAKE ONE TABLET BY MOUTH EVERY DAY Rx Instructions: TAKE ONE TABLET BY MOUTH EVERY DAY gabapentin 300 mg capsule 300 mg PO BID Qty: 60 2RF metformin 500 mg tablet See Rx Instructions .ROUTE .COMPLEX Qty: 180 1RF Dose Instruction: TAKE TWO TABLETS BY MOUTH TWICE DAILY with meals Rx Instructions: TAKE TWO TABLETS BY MOUTH TWICE DAILY with meals Rybelsus 3 mg tablet 3 mg PO DAILY 30 Days Qty: 30 2RF naproxen 500 mg tablet 500 mg PO BID PRN (Reason: Pain) Referrals Follow up/Referrals: Preet Morales MD [Primary Care Provider, Medical] - See instructions Print Language Print Language: Hong Konger Discharge ED Provider: Stacey Peña General Adult HPI General Chief complaint: Eye Problems Stated complaint: R eye itching/scratchy Time Seen by Provider: 03/08/25 08:54 History of Present Illness HPI narrative: Patient is a 79-year-old past medical history significant for hyperlipidemia type 2 diabetes hypertension atrial fibrillation presents to the emergency department with itchy right eye. Patient does a lot of activities outside including golfing hunting and fishing and noticed that when he woke up this morning he had a foreign body sensation in his right eye. No known trauma to the eye. Does not wear contacts. Wears readers. Denies eye pain or blurry vision. Related Data Home Medications ?Medication ?Instructions ?Recorded ?Confirmed naproxen 500 mg tablet 500 mg PO BID PRN Pain 06/23/22 12/12/24 blood sugar diagnostic (Accu-Chek #10 ea 04/29/24 12/12/24 Guide test strips) lancets (Accu-Chek Softclix #100 ea 04/29/24 12/12/24 Lancets) Previous Rx's ?Medication ?Instructions ?Recorded meclizine 25 mg tablet 25 mg PO DAILY PRN dizziness #30 04/28/23 tabs apixaban 5 mg tablet (Eliquis) See Rx Instructions .Route 04/22/24 .COMPLEX #180 tabs canagliflozin 300 mg tablet 300 mg PO DAILY #90 tabs 04/24/24 (Invokana) canagliflozin 300 mg tablet See Rx Instructions .Route 04/24/24 (Invokana) .COMPLEX #30 tabs metoprolol succinate 50 mg See Rx Instructions .Route 05/24/24 tablet,extended release 24 hr .COMPLEX #90 tabs memantine 10 mg tablet 10 mg PO BID Memory loss #60 tabs 07/31/24 rosuvastatin 20 mg tablet 20 mg PO DAILY #14 tabs 10/11/24 gabapentin 300 mg capsule 300 mg PO BID Pain #60 caps 12/24/24 lisinopril 10 See Rx Instructions .Route 12/24/24 mg-hydrochlorothiazide 12.5 mg .COMPLEX #90 tabs tablet metformin 500 mg tablet See Rx Instructions .Route 01/16/25 .COMPLEX #180 tabs semaglutide 3 mg tablet (Rybelsus) 3 mg PO DAILY 30 days #30 tabs 01/21/25 Allergies Allergy/AdvReac Type Severity Reaction Status Date / Time No Known Allergies Allergy Verified 12/12/24 11:20 [facility] Disclaimer: The information contained in this section may have been updated after the patient was seen, as this information can be updated by other users. 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 Diabetes Surgical History History of left knee surgery History of permanent cardiac pacemaker placement History of appendectomy Family History Other Alcoholism Cancer Family history non-contributory Social History Smoking Status: Never smoker alcohol intake: current alcohol intake frequency: a few times a week substance use type: denies use current occupational status: employed Travel in the last 8 weeks?: None household members: other housing: house current occupational exposures/hazards: No caffeine: Yes Have you lived/traveled outside US in past 30 days?: No Contact w/someone who lives/traveled outside US past 30 days?: No Exposure to someone with infectious disease in past 14 days?: No Do you have a fever (greater than 100.4 F or 38 C)?: No Have you tested positive for COVID-19?: No Exposed to someone with COVID-19 in past 14 days?: No Do you have a sore throat?: No Do you have a cough?: No Do you have any weakness?: No Do you have any diarrhea?: No Are you experiencing any unusual bleeding?: No Do you have any muscle aches/pain?: No Do you have any abdominal pain?: No Are you experiencing loss of taste or smell?: No Other Medical History Have you received the Flu Vaccine for this season: Yes Have you received the Pneumonia Vaccine: Yes ROS Obtained: Yes All systems reviewed & no additional complaints except as documented Physical Exam General General appearance: alert and in no apparent distress Eye Eye exam: Present PERRL (Left pupil 3 mm right pupil 2 mm baseline), EOMI and conjunctival redness (Right eye); Absent discharge or periorbital swelling ENT ENT exam: Present normal oropharynx Chest Chest inspection: Present normal inspection Respiratory Respiratory exam: Absent respiratory distress Cardiovascular Cardiovascular exam: Present regular rate and normal rhythm Abdominal Exam Abdominal exam: Present soft; Absent tenderness Back Exam Back exam: Present normal inspection Neurological Exam Neurological exam: Present alert and oriented X3 Medical Decision Making Medical Records Screening: Per USPSTF and CDC recommendations, given the prevalence of disease in our region, it is our hospital?s policy to screen for HIV and viral Hepatitis for all patients aged 18 and over and those with ongoing risk factors. Liban Inquiry Pt receiving controlled substance: No Vital Signs: 03/08/25 09:02 Temperature 98.1 F Temperature Source Oral Pulse Rate [Right] 63 Respiratory Rate 18 Blood Pressure [Right Arm] 145/78 H Blood Pressure Mean [Right Arm] 100 02 Sat by Pulse Oximetry 97 Oxygen Delivery Method Room Air Medical Decision Narrative: In summary, this 79-year-old male presents to the emergency department today with foreign body sensation. On initial evaluation patient is hemodynamically stable saturating appropriately on room air afebrile in no acute distress. Differential diagnosis includes but is not limited to corneal abrasion foreign body allergic rhinitis. Normal visual acuity increased uptake of stain concerning for corneal abrasion on fluorescein light exam no foreign body on eyelid inversion. Improvement of symptoms after application of tetracaine. Based off of this exam symptoms are most concerning for corneal abrasion. Patient provided with erythromycin in the emergency department to use for 7 days 4 times a day. Critical Care Critical Care Time Critical Care Time: No
--- OUTSIDE RECORDS SUMMARY | 2025-03-08 08:58 | XMS_ITS | Clinical Summary ---
Author Organization [facility] Address [address] [place] [address] Care Team Providers Care Visual Supervisor Name Role Phone Preet Morales Primary Care Provider [phone] Source Comments This information has been disclosed to you from confidential records protectedfrom disclosure by state law. You shall make no further disclosure of thisinformation without the specific, written, and informed release of theindividual to whom it pertains, or as otherwise permitted by law. A generalauthorization for the release of medical or other information is not sufficientfor the purposes of therelease of HIV test results or diagnoses. [id number] Allergies No known active allergies Medications metFORMIN (GLUCOPHAGE) 500 MG tablet Take 2 tablets by mouth 2 times a day. 1 Active metoprolol tartrate (LOPRESSOR) 50 MG tablet Take 1 tablet by mouth daily. 1 Active pravastatin (PRAVACHOL) 40 MG tablet Take 1 tablet by mouth at bedtime. 1 Active INVOKANA 300 mg Tab tablet Take 1 tablet by mouth daily. 1 Active gabapentin (NEURONTIN) 300 MG capsule Take 1 capsule by mouth 2 times a day. 1 Active glimepiride (AMARYL) 4 MG tablet Take 1 tablet by mouth daily. 1 Active lisinopriL-hydr ochlorothiazide (PRINZIDE) 20-12.5 mg per tablet Take 1 tablet by mouth daily. 1 Active aspirin 81 MG EC tablet Take 81 mg by mouth daily. Active acetaminophen-c odeine (TYLENOL #3) 300-30 mg per tablet 1 Active diclofenac (VOLTAREN) 75 MG EC tablet 1 Active oxiconazole (OXISTAT) 1 % Cream Apply 15 gm twice daily to affected areas of bilateral lower extremities. Or as prescribed by physician. 1 Active naproxen (NAPROSYN) 500 MG tablet 1 Active Active Problems No known active problems Immunizations Immunization Administration Dates Next Due Influenza, unspecified 06/15/2007 Pneumococcal polysaccharide, 23-valent 7 Family History Medical History Relation Comments No Known Problems Brother No Known Problems Father No Known Problems Maternal Aunt No Known Problems Maternal Grandfather No Known Problems Maternal Grandmother No Known Problems Maternal Uncle No Known Problems Mother No Known Problems Other No Known Problems Paternal Aunt No Known Problems Paternal Grandfather No Known Problems Paternal Grandmother No Known Problems Paternal Uncle No Known Problems Sister ALS Neg Hx Ataxia Neg Hx Cancer Neg Hx Chorea Neg Hx Coronary artery disease Neg Hx Dementia Neg Hx Diabetes Neg Hx Dystonia Neg Hx Jian's disease Neg Hx Hypertension Neg Hx Intellectual disability Neg Hx Kidney disease Neg Hx Migraines Neg Hx Multiple sclerosis Neg Hx Neurofibromatosis Neg Hx Neuropathy Neg Hx Parkinsonism Neg Hx Seizures Neg Hx Stroke Neg Hx Relation Status Comments Brother Father Maternal Aunt Maternal Grandfather Maternal Grandmother Maternal Uncle Mother Other Paternal Aunt Paternal Grandfather Paternal Grandmother Paternal Uncle Sister Social History Tobacco Use Types Packs/Day Years Used Date Smoking Tobacco: Every Day Cigars Smokeless Tobacco: Never Tobacco Cessation:Ready to Q uit: No; Counseling Given: Yes Alcohol Use Standard Drinks/Week Comments Yes 0 (1 standard drink = 0.6 oz pur e alcohol) rearly PHQ-2 Answer Date Recorded PHQ-2 Total Score 1 08/24/2021 Sex and Gender Information Value Date Recorded Sex Assigned at Not on file Legal Sex Male 10:26 PM EST Gender Identity Not on file Sexual Orientation Not on file Last Filed Vital Signs Vital Sign Reading Time Taken Comments Blood Pressure 171/82 09/07/2021 8:16 AM EST Pulse 59 09/07/2021 8:16 AM EST Temperature - - Respiratory Rate 16 09/07/2021 8:16 AM EST Oxygen Saturation 99% 09/07/2021 8:16 AM EST Inhaled Oxygen Concentration 99% 09/07/2021 8 :16 AM EST Weight - - Height - - Body Mass Index - - Plan of Treatment Not on file Insurance [employer] PPO MEDICARE Care Teams Visual Supervisor Relationship Specialty Start Date End Date Preet oMrales [id number] [facility] [address] [place], [place] [phone] PCP - General 08/06/21
--- OUTSIDE RECORDS SUMMARY | 2025-03-08 08:58 | XMS_ITS | Clinical Summary ---
Author Organization [facility] Address [address] [place] [address] Phone Care Team Providers Care Hris Specialist Name Role Phone Unavailable Primary Care Provider Unavailabl e Social History Tobacco Use Types Packs/Day Years Used Date Smoking Tobacco: Never Assessed Sex and Gender Information Value Date Recorded Sex Assigned at Not on file Legal Sex Male 9:23 PM EDT Gender Identity Not on file Sexual Orientation Not on file Plan of Treatment Health Maintenance Due Date Last Done Comments Annual Wellness Exam 1948 Hepatitis C Screening 1964 DTaP/TDaP/Td (1 - Tdap) 1965 Pneumococcal Vaccine 50+ (1 of 1 - PCV) 1996 Zoster (1 of 2) 1996 RSV or 60+ (1 - 1-d ose 75+ series) 2021 COVID-19 Vaccine ( - 2023-2 5 season) 2024 Influenza Vaccine (Season Ended) 2025 Hepatitis B Vaccine Aged Out No longe r eligible based on patient's age to complete this topic Meningococcal B Vaccine Aged Out No l onger eligible based on patient's age to complete this topic Insurance [employer]
[2025-03-08 09:02] VITALS: BP 145/78; PULSE 63; RESP 18; TEMP 36.7; O2SAT 97; BMI 34.4
[2025-03-08 09:18] VITALS: BP 133/81; PULSE 80; RESP 18; TEMP 36.8; O2SAT 98
== END 2025-03-08 09:19 | disposition home or self-care (01) ==
PROVIDERS: Emergency Provider Student in an Organized Health Care Education/Training Program; PCP Internal Medicine
DX: S05.01XA Injury of conjunctiva and corneal abrasion without foreign body, right eye, initial encounter (principal); H53.141 Visual discomfort, right eye; X58.XXXA Exposure to other specified factors, initial encounter
CPT/HCPCS: 99283

== ENCOUNTER 2025-03-18 15:31 | Outpatient (CLI) | payer MEDICARE, SELFPAY ==
[2025-03-18 14:12] LABS: Alanine Aminotransferase 20 U/L (12-78); Albumin Level 4.4 g/dl (3.5-5.0); Anion Gap 10.5 mEq/L (5-15); Aspartate Amino Transferase 22 U/L (17-59); Bilirubin,Total 0.5 mg/dl (0.2-1.3); Blood Urea Nitrogen 22 mg/dl (9-20); Calcium 10.5 mg/dl (8.4-10.2); Carbon Dioxide 33 mmol/L (22.0-30.0); Chloride 98 mmol/L (98-107); Creatinine,Serum 0.70 mg/dl (0.66-1.25); Estimated Glomerular Filt Rate 109 ml/min (>60); GFR (African American) 132 ML/MIN (>60); Glucose 126 mg/dl (74-100); Potassium 4.5 mmoL/L (3.5-5.1); Sodium 137 mmol/L (136-145); Total Protein,Serum 6.9 g/dl (6.3-8.2)
[2025-03-18 14:13] LABS: Albumin/Globulin Ratio 1.8 (1.1-1.8); Alkaline Phosphatase 64 U/L (38-126); Cholesterol 133 mg/dl (140-200); Globulin 2.5 g/dL (1.3-3.2); HDL Cholesterol 42 mg/dl (40-60); Triglycerides 102 mg/dl (30-150)
[2025-03-18 15:06] LABS: Hemoglobin A1C 9.7 % (4.0-6.0)
--- OUTSIDE RECORDS SUMMARY | 2025-03-18 15:34 | XMS_ITS | Clinical Summary ---
Author Organization [facility] Address [address] [place] [address] Care Team Providers Care Hospital Plan Administrator Name Role Phone Preet Morales Primary Care Provider [phone] Source Comments This information has been disclosed [...] therelease of HIV test results or diagnoses. [id number] Allergies No known active allergies Medications [...] Hx Diabetes Neg Hx Dystonia Neg Hx Limaville's disease Neg Hx Hypertension Neg Hx Intellectual [...] Plan of Treatment Not on file Insurance [employer] PPO MEDICARE Care Teams Hospital Plan Administrator Relationship Specialty Start Date End Date Preet Morales [id number] [facility] [address] [place], [place] [id number] PCP - General 08/06/21
--- OUTSIDE RECORDS SUMMARY | 2025-03-18 15:34 | XMS_ITS | Clinical Summary ---
Author Organization [facility] Address [address] [place] [address] Phone Care Team Providers Care Surfboard Designer Name Role Phone Unavailable Primary Care Provider [...]
== END 2025-03-18 23:59 | disposition home or self-care (01) ==
LOC: LAB.DROPOF 15:32
PROVIDERS: PCP Internal Medicine; Visit Provider Internal Medicine
DX: E11.59 Type 2 diabetes mellitus with other circulatory complications (principal); E11.42 Type 2 diabetes mellitus with diabetic polyneuropathy; E11.69 Type 2 diabetes mellitus with other specified complication; E78.5 Hyperlipidemia, unspecified; I10 Essential (primary) hypertension; Z12.5 Encounter for screening for malignant neoplasm of prostate
CPT/HCPCS: 80053; 80061; 82043; 82570; 83036; G0103

== ENCOUNTER 2025-04-01 14:15 | Outpatient (CLI) | payer MEDICARE, SELFPAY ==
[2025-04-01 19:15] LABS: Anion Gap 16.6 mEq/L (5-15); Blood Urea Nitrogen 18 mg/dl (9-20); Calcium 10.5 mg/dl (8.4-10.2); Carbon Dioxide 30 mmol/L (22.0-30.0); Chloride 97 mmol/L (98-107); Creatinine,Serum 0.70 mg/dl (0.66-1.25); Estimated Glomerular Filt Rate 109 ml/min (>60); GFR (African American) 132 ML/MIN (>60); Glucose 88 mg/dl (74-100); Potassium 4.6 mmoL/L (3.5-5.1); Sodium 139 mmol/L (136-145)
[2025-04-01 20:05] LABS: Vitamin B12 421 pg/mL (239-931)
--- OUTSIDE RECORDS SUMMARY | 2025-04-02 08:56 | XMS_ITS | Clinical Summary ---
Author Organization [facility] Address [address] [place] [address] Care Team Providers Care Data Specialist Name Role Phone Preet Morales Primary Care Provider [phone] Source Comments This information has been disclosed [...] therelease of HIV test results or diagnoses. [id number] Allergies No known active allergies Medications [...] Plan of Treatment Not on file Insurance [employer] PPO MEDICARE Care Teams Data Specialist Relationship Specialty Start Date End Date Preet Morales [id number] [facility] [address] [place], [place] [phone] PCP - General 08/06/21
--- OUTSIDE RECORDS SUMMARY | 2025-04-02 08:56 | XMS_ITS | Clinical Summary ---
Author Organization [facility] Address [address] [place] [address] Phone Care Team Providers Care Sales Support Rep Name Role Phone Unavailable Primary Care Provider [...] 1-d ose 75+ series) 2021 COVID-19 Vaccine (1 - 2023-2 5 season) 2024 Influenza Vaccine (#1) 2025 Hepatitis B Vaccine Aged Out No longe r eligible based on patient's age to complete this topic Meningococcal B Vaccine Aged Out No l onger eligible based on patient's age to complete this topic Insurance [employer]
== END 2025-04-01 23:59 | disposition home or self-care (01) ==
LOC: LAB.DROPOF 04-02 08:53
PROVIDERS: PCP Internal Medicine; Visit Provider Internal Medicine
DX: F01.50 Vascular dementia, unspecified severity, without behavioral disturbance, psychotic disturbance, mood disturbance, and anxiety (principal); I10 Essential (primary) hypertension
CPT/HCPCS: 80048; 82607

== ENCOUNTER 2025-06-27 10:28 | Emergency (ER) | payer MEDICARE, SELFPAY ==
[2025-06-27 11:40] VITALS: BP 103/60; PULSE 71; RESP 18; TEMP 37; O2SAT 98; BMI 33.5
[2025-06-27 13:30] VITALS: BP 120/72
--- NOTE | 2025-06-27 13:31 | ED_ITS ---
<Statement entered by David Melton JR, DO - 06/27/25 16:20> I was consulted by the SAVANNA, and we discussed the complexity of problems being addressed. I approved the treatment and management plan for this patient's care in the emergency department, thus performing a substantial portion of the medical decision making. David Melton DO Discharge Plan Disposition Patient Disposition: Home, Self-Care Condition: Good Prescriptions Prescriptions: No Action sildenafil [Viagra] 100 mg tablet See Rx Instructions PO DAILY PRN (Reason: sexual activity) Qty: 10 3RF Rx Instructions: One half or 1 orally daily PRN; administer 30 minutes to 4 hours before activity (DME) Accu-Chek Guide test strips Strip See Rx Instructions .ROUTE .MEDSUPPLY Qty: 10 Rx Instructions: As directed (DME) lancets [Accu-Chek Softclix Lancets] Misc See Rx Instructions .ROUTE .MEDSUPPLY Qty: 100 Rx Instructions: As directed meclizine 25 mg tablet 25 mg PO DAILY PRN (Reason: dizziness) Qty: 30 0RF lisinopril-hydrochlorothiazide 10-12.5 mg tablet See Rx Instructions .ROUTE .COMPLEX Qty: 90 1RF Dose Instruction: TAKE ONE TABLET BY MOUTH EVERY DAY Rx Instructions: TAKE ONE TABLET BY MOUTH EVERY DAY semaglutide 7 mg tablet 7 mg PO DAILY Qty: 30 5RF gabapentin 300 mg capsule 300 mg PO BID Qty: 60 2RF metformin 500 mg tablet 1,000 mg PO BID Qty: 120 1RF rosuvastatin 20 mg tablet 20 mg PO DAILY Qty: 90 1RF Invokana 300 mg tablet See Rx Instructions .ROUTE .COMPLEX Qty: 90 1RF Dose Instruction: TAKE ONE TABLET BY MOUTH EVERY DAY Rx Instructions: TAKE ONE TABLET BY MOUTH EVERY DAY Eliquis 5 mg tablet See Rx Instructions .ROUTE .COMPLEX Qty: 180 0RF Dose Instruction: TAKE ONE TABLET BY MOUTH TWICE DAILY Rx Instructions: TAKE ONE TABLET BY MOUTH TWICE DAILY memantine 10 mg tablet See Rx Instructions .ROUTE .COMPLEX Qty: 60 11RF Dose Instruction: TAKE ONE TABLET BY MOUTH TWICE DAILY FOR MEMORY LOSS MAX DAILY DOSE 20MG Rx Instructions: TAKE ONE TABLET BY MOUTH TWICE DAILY FOR MEMORY LOSS MAX DAILY DOSE 20MG metoprolol succinate 50 mg tablet extended release 24 hr See Rx Instructions .ROUTE .COMPLEX Qty: 90 1RF Dose Instruction: TAKE ONE TABLET BY MOUTH EVERY DAY Rx Instructions: TAKE ONE TABLET BY MOUTH EVERY DAY naproxen 500 mg tablet 500 mg PO BID PRN (Reason: Pain) Referrals Follow up/Referrals: Preet Morales MD [Primary Care Provider, Medical] - See instructions David Sutton DO [Staff Physician, Orthopedics] - See instructions Activity Restrictions/Add. Instructions Additional Instructions/Restrictions: Please return to the emergency department with any worsening signs or symptoms. Please utilize muscle relaxers as needed for symptomatic relief. Please utilize ibuprofen and Tylenol as needed for symptomatic relief. Could benefit from ice and rest. Please follow-up with orthopedic doctor in the upcoming days/weeks. Clinical Impressions Clinical Impression: Degenerative disc disease, Hip pain, right Instructions Patient Instructions: Help for Hip Pain Print Language Print Language: Sinhala Discharge ED Provider: David Melton JR General Adult HPI General Chief complaint: PAIN Stated complaint: pain in R hip Time Seen by Provider: 06/27/25 13:16 Mode of Arrival: Wheelchair Source of Information: Patient Description of Symptoms (Recalled from ER Triage Doc. by RN): Pt presents for evaluation of right hip pain x 1 day. Pt states the pain is worse today. Pt states pain is worse with ambulation. History of Present Illness HPI narrative: 80-year-old male presents emergency department for right hip pain that started yesterday, patient states that started as a ache , denies any trauma or injury per history, no bending lifting twisting episode, patient states that yesterday aching , yesterday, patient ambulates with a cane daily, did have some difficulty ambulation today, and pain to that was quite severe thus prompted emergency department visit. Patient [place] any fever chills chest pain shortness of breath nausea vomiting constipation diarrhea, denies any urinary sym ptomatology, no radicular type symptomatology, no lower back pain, no numbness or tingling no saddle anesthesia, no urinary bladder or bowel dysfunction. Patient is a current everyday smoker (cigars), denies any alcohol or drug use, other past medical history is consistent with cardiac pacemaker, T2DM, osteoarthritis, [place]ST[place], vascular dementia, hyperlipidemia, MDD, ENOCH, hyperlipidemia, hypertension, atrial fibrillation on anticoagulation therapy with Eliquis, lumbar spinal stenosis, degenerative disc disease of the spine. Initial triage vitals are grossly unremarkable. Patient's daughter at bedside states he took ibuprofen , today which did help relieve some of his pain. Please note that above description of symptoms, in this electronic medical record under categorization of recalled from ER triage doctor by RN are reflective of an initial nursing assessment, however, is not reflective of my full history and physical exam that was personally taken and clarified. Consequentially, this preceding description of symptoms, which may include the patient's categorized chief complaint in the EMR, do not reflect my personal clinical impression, and the ultimate description of history of present illness and patient stated complaints should be deferred to this section of the note. Unless stated otherwise or congruent with this section of the note, additional signs, symptoms, or incongruence should be interpreted as inaccurate with my clinical impression. Onset (ago): hour(s) Related Data Home Medications ?Medication ?Instructions ?Recorded ?Confirmed naproxen 500 mg tablet 500 mg PO BID PRN Pain 06/2305/01/25 blood sugar diagnostic (Accu-Chek #10 ea 04/29/2404/18 Guide test strips) lancets (Accu-Chek Softclix #100 ea 04/29/24 05/01/25 Lancets) Previous Rx's ?Medication ?Instructions ?Recorded meclizine 25 mg tablet 25 mg PO DAILY PRN dizziness #30 04/28/23 tabs lisinopril 10 See Rx Instructions .Route 0 12/24/24 mg-hydrochlorothiazide 12.5 mg .COMPLEX #90 tabs tablet sildenafil 100 mg tablet (Viagra) See Rx Instructions PO DAILY PRN 03/18/25 sexual activity #10 tabs semaglutide 7 mg tablet 7 mg PO DAILY #30 tabs 03/19 gabapentin 300 mg capsule 300 mg PO BID Pain #60 caps 03/28/25 apixaban 5 mg tablet (Eliquis) See Rx Instructions .[place] 04/23/25 .COMPLEX #180 tabs canagliflozin 300 mg tablet See Rx Instructions .Route 04/23/25 (Invokana) .COMPLEX #90 tabs metformin 500 mg tablet 1,000 mg (2 x 500 mg) PO BID #120 04/23/25 tabs rosuvastatin 20 mg tablet 20 mg PO DAILY #90 tabs 03/12 memantine 10 mg tablet See Rx Instructions .Route 0 05/22/25 .COMPLEX #60 tabs metoprolol succinate 50 mg See Rx Instructions .Route 05/23/25 tablet,extended release 24 hr .COMPLEX #90 tabs Allergies Allergy/AdvReac Type Severity Reaction Status Date / Time No Known Allergies Allergy Verified 05/01/25 14:51 [facility] Disclaimer: The information contained in this section may have been updated after the patient was seen, as this information can be updated by other users. Medical History (Updated 06/27/25 @ 15:21 by GREGORY Pitts) Pacemaker History of meniscal tear History of cardiac pacemaker Near syncope Tachy-jacinda syndrome Ventricular bigeminy seen on campus monitor Palpitations Bradycardia Cervical radicular pain Status post placement of implantable loop recorder Hyperlipidemia Hypertension Sinus bradycardia PAF (paroxysmal atrial fibrillation) New onset a-fib HOUSTON (obstructive sleep apnea) Diabetes Surgical History History of left knee surgery History of permanent cardiac pacemaker placement History of appendectomy Family History Other Alcoholism Cancer Family history non-contributory Social History Smoking Status: Current some day smoker tobacco type: cigars alcohol intake: current alcohol intake frequency: a few times a week substance use type: denies use current occupational status: employed Travel in the last 8 weeks?: None household members: other housing: house current occupational exposures/hazards: No caffeine: Yes Have you lived/traveled outside US in past 30 days?: No Contact w/someone who lives/traveled outside US past 30 days?: No Exposure to someone with infectious disease in past 14 days?: No Do you have a fever (greater than 100.4 F or 38 C)?: No Have you tested positive for COVID-19?: No Exposed to someone with COVID-19 in past 14 days?: No Do you have a sore throat?: No Do you have a cough?: No Do you have any weakness?: No Do you have any diarrhea?: No Are you experiencing any unusual bleeding?: No Do you have any muscle aches/pain?: No Do you have any abdominal pain?: No Are you experiencing loss of taste or smell?: No Other Medical History Have you received the Flu Vaccine for this season: Yes Have you received the Pneumonia Vaccine: Yes ROS Obtained: Yes All systems reviewed & no additional complaints except as documented Physical Exam General General appearance: alert and in no apparent distress Head Head exam: atraumatic and normocephalic Eye Eye exam: Present PERRL and EOMI ENT ENT exam: Present mucous membranes moist Neck Neck exam: Present normal inspection Chest Chest inspection: Present normal inspection and symmetric chest wall rise Respiratory Respiratory exam: Present normal lung sounds bilaterally; Absent respiratory distress, wheezes or stridor Cardiovascular Cardiovascular exam: Present regular rate and normal rhythm Abdominal Exam Abdominal exam: Present soft; Absent tenderness, guarding, rebound or rigidity Extremities Exam Extremities exam: Present normal inspection, full ROM, tenderness and other (Patient has no intrinsic or intrinsic hip dysfunction, good range of motion, there is pain palpation to the intertrochanteric region on the lateral aspect, no obvious traumatic fracture or injury no deformity, no shortening of the limb or internal or external rotation difficulties, otherwise neurova) Back Exam Back exam: Absent paraspinal tenderness or vertebral tenderness Neurological Exam Neurological exam: Present alert and oriented X3 Psychiatric Psychiatric exam: Present normal affect Skin Skin exam: Present warm and dry Medical Decision Making Medical Records Medical records reviewed: Yes I reviewed the patient's medical records. Screening: Per USPSTF and CDC recommendations, given the prevalence of disease in our region, it is our hospital?s policy to screen for HIV and viral Hepatitis for al l patients aged 18 and over and those with ongoing risk factors. Liban Inquiry Pt receiving controlled substance: No Liban was queried for this patient: No Vital Signs: 06/27/25 11:40 06/27/25 13:30 06/27/25 13:49 Temperature 98.6 F Temperature Source Oral Pulse Rate [Right] 71 Respiratory Rate 18 Blood Pressure 120/72 118/67 Blood Pressure [Right Arm] 103/60 L Blood Pressure Mean 88 84 Blood Pressure Mean [Right Arm] 74 Blood Pressure Source [Right Arm] Automatic Cuff Blood Pressure Position [Right Arm] Sitting 02 Sat by Pulse Oximetry 98 Oxygen Delivery Method Room Air Orders (Tests/Meds): ORDERS Category Date Time Status CT lumbar spine wo con Stat Cat Scan 06/27/25 13:39 Completed XR femur RT 2V Stat Exams 06/27/25 13:39 Completed XR hip RT 2-3V w/pelvis Stat Exams 06/27/25 13:38 Completed Medical Decision Narrative: 80-year-old male presents the emergency department with right sided hip pain for 1 day, differential diagnose include but not limited to, osteoarthritis, lumbar spinal stenosis, herniated nucleus pulposus, facet arthropathy, hip sprain/strain, hip fracture, intra trochanteric bursitis IT band syndrome among others. I discussed this patient's case with the attending physician Dr. Melton he saw and examined the patient as well. Will obtain CT lumbar spine without contrast, x-ray of the hip and pelvis, as well as femur x-ray on the right, I did offer laboratory studies to the patient him at the bedside, shared decision making was utilized patient and family deferred at this time. I think this is appropriate, patient has no other red flag signs or symptoms otherwise good range of motion of his hip joint, no fever no chills he is hemodynamically stable. I reviewed the patient's femur x-ray, pelvic x-ray with right hip x-ray along the corresponding radiologic reports, degenerative change without acute osseous abnormality the right hip. Otherwise degenerative changes of the femur without any acute abnormality identified. I reviewed the patient's CT lumbar spine without contrast on the corresponding radiologic report, mild multilevel degenerative disease, consider MRI. I discussed the results with the patient and family at the bedside I will prescribe a short course of methocarbamol 750 mg p.o. to take nightly if needed, otherwise recommend ibuprofen Tylenol other anti-inflammatory medications ice as needed for symptomatic relief. Patient and family voiced understanding and agreement with current treatment plan/discharge plan. Patient follow-up with orthopedic provider in the upcoming days/weeks. Strict ED return precautions were given. Patient and family once again voiced understanding. Critical Care Critical Care Time Critical Care Time: No
--- NOTE | 2025-06-27 13:38 | XR_ITS ---
FINAL REPORT CLINICAL HISTORY: Right hip pain FINDINGS: An AP view of the pelvis and a frog leg view of the right hip were obtained. There is no prior exam for comparison. There is no acute fracture or dislocation. Mild degenerative disease is noted of the right hip. Remaining osseous pelvis is without acute abnormality. Soft tissues are unremarkable. IMPRESSION: Degenerative change without acute osseous abnormality of the right hip. Reviewed, Interpreted and Dictated by Elisabeth Gray MD Transcribed by Morena Lopez Authenticated and [facility]
--- NOTE | 2025-06-27 13:39 | CT_ITS ---
FINAL REPORT TECHNIQUE: Thin section axial images were obtained through the lumbar spine without contrast. Sagittal and coronal reconstruction images were obtained from the axial data. Exam was performed using dose reduction techniques. CLINICAL HISTORY: Right-sided lower back pain right hip pain COMPARISON: 01/10/2021 FINDINGS: There is no acute fracture or acute malalignment of the lumbar spine. Vertebral body height is preserved. There is mild multilevel degenerative disease with multilevel central and foraminal stenosis, not significantly changed from the prior exam. Paraspinal soft tissues are within normal limits. There is no paraspinal mass or fluid collection. IMPRESSION: No acute osseous abnormality of the lumbar spine. Mild multilevel degenerative disease. Consider MRI. Reviewed, Interpreted and Dictated by Elisabeth Gray MD Transcribed by Morena Lopez Authenticated and [facility]
--- NOTE | 2025-06-27 13:39 | XR_ITS ---
FINAL REPORT CLINICAL HISTORY: Right hip/leg pain FINDINGS: Two views of the right femur were obtained. There is no prior exam for comparison. There is no acute fracture or dislocation. There is degenerative disease of the hip and knee. There is no acute soft tissue abnormality. IMPRESSION: Degenerative change without acute abnormality identified. Reviewed, Interpreted and Dictated by Elisabeth Gray MD Transcribed by Morena Lopez Authenticated and [facility]
[2025-06-27 13:49] VITALS: BP 118/67
[2025-06-27 14:30] VITALS: BP 125/75; PULSE 59
--- NOTE | 2025-06-27 14:59 | PC.NURSE ---
patient provided drink, chips and sandwich per Celeste
[2025-06-27 15:02] VITALS: BP 120/75; PULSE 61
[2025-06-27 15:41] VITALS: BP 120/75; PULSE 61; RESP 16; TEMP 36.7; O2SAT 99
== END 2025-06-27 15:42 | disposition home or self-care (01) ==
PROVIDERS: Emergency Provider Student in an Organized Health Care Education/Training Program; PCP Internal Medicine
DX: M25.551 Pain in right hip (principal); M51.369 Other intervertebral disc degeneration, lumbar region without mention of lumbar back pain or lower extremity pain
CPT/HCPCS: 72131; 73502; 73552; 99284